=== PATIENT | female | born 1975 | race Caucasian/White ===

== ENCOUNTER 2020-12-10 08:08 | Outpatient (REF) | payer OTHER, SELFPAY ==
[2020-12-10 11:18] LABS: MANUAL DIFF FLAG NO
[2020-12-10 11:28] LABS: Basophils Percent Auto 0.3 % (0-2); Eosinophils Absolute Auto 0.2 X10*3/uL (0.0-0.4); Eosinophils Percent Auto 3.1 % (0-4); Hematocrit 41.4 % (37-47); Hemoglobin 13.3 g/dl (12.0-16.0); Imm Gran Abs Auto 0.03 X10*3/uL (0.00-0.03); Imm Gran Pct Auto 0.4 % (0.0-0.4); Lymphocytes Absolute Auto 2.3 X10*3/uL (1.2-4.9); Lymphocytes Percent Auto 30.7 % (20-40); Mean Corpuscular HGB Conc 32.1 g/dl (31.0-35.0); Mean Corpuscular Hemoglobin 28.9 pg (27.0-33.0); Mean Corpuscular Volume 89.8 fL (80-98); Mean Platelet Volume 10.3 fL (9.4-12.3); Monocytes Absolute Auto 0.5 X10*3/uL (0.1-1.2); Monocytes Percent Auto 6.2 % (2-11); Neutrophils Absolute Auto 4.5 X10*3/uL (2.0-8.3); Neutrophils Percent Auto 59.3 % (45-73); Platelet Count 215 X10*3/uL (160-400); Red Blood Count 4.61 X10*6/uL (4.20-5.50); Red Cell Distribution Width 11.9 % (11.0-16.0); White Blood Count 7.5 X10*3/uL (4.8-10.8)
[2020-12-10 12:09] LABS: TSH reflex Free T4 1.57 uIU/mL (0.32-4.0); Vitamin D 25-OH Total 20.1 ng/mL (>30)
[2020-12-10 12:12] LABS: Alanine Aminotransferase 14 U/L (0-31); Anion Gap 15 (12-20); Aspartate Amino Transferase 16 U/L (5-31); Blood Urea Nitrogen 15 mg/dL (9-16); Calcium 9.1 mg/dL (8.4-10.2); Carbon Dioxide 25 mmol/L (22-29); Chloride 106 mmol/L (96-108); Cholesterol 222 mg/dL; Estimated Glomerular Filt Rate > 60; Glucose Fasting 105 mg/dL (60-99); HDL Cholesterol 51 mg/dL; LDL Cholesterol Calculated 143 mg/dl; Potassium 4.1 mmol/L (3.3-5.1); Sodium 142 mmol/L (135-145); Triglycerides 144 mg/dL
== END 2020-12-10 08:09 | disposition home or self-care (01) ==
LOC: HO.HMGCLDS 08:08
PROVIDERS: PCP Internal Medicine; Visit Provider Internal Medicine
DX: Z00.01 Encounter for general adult medical examination with abnormal findings (principal); E89.40 Asymptomatic postprocedural ovarian failure; R42 Dizziness and giddiness; C53.9 Malignant neoplasm of cervix uteri, unspecified; I10 Essential (primary) hypertension
CPT/HCPCS: 36415; 80048; 80061; 82306; 84443; 84450; 84460; 85025

== ENCOUNTER 2021-12-23 09:17 | Outpatient (REF) | payer OTHER, SELFPAY ==
[2021-12-23 11:20] LABS: MANUAL DIFF FLAG NO
[2021-12-23 11:34] LABS: Basophils Percent Auto 0.2 % (0-2); Eosinophils Absolute Auto 0.3 X10*3/uL (0.0-0.4); Hematocrit 39.3 % (37.0-47.0); Hemoglobin 13.3 g/dl (12.0-16.0); Imm Gran Abs Auto 0.03 X10*3/uL (0.00-0.03); Imm Gran Pct Auto 0.4 % (0.0-0.4); Lymphocytes Absolute Auto 2.2 X10*3/uL (1.2-4.9); Lymphocytes Percent Auto 26.7 % (20-40); Mean Corpuscular HGB Conc 33.8 g/dl (31.0-35.0); Mean Corpuscular Volume 88.5 fL (80.0-98.0); Monocytes Absolute Auto 0.5 X10*3/uL (0.1-1.2); Monocytes Percent Auto 5.8 % (2-11); Neutrophils Absolute Auto 5.3 x10*3/uL (2.0-8.3); Neutrophils Percent Auto 63.9 % (45-73); Platelet Count 193 X10*3/uL (160-400); Red Blood Count 4.44 X10*6/uL (4.20-5.50); Red Cell Distribution Width 12.7 % (11.0-16.0); White Blood Count 8.3 X10*3/uL (4.8-10.8)
[2021-12-23 12:00] LABS: Alanine Aminotransferase 12 U/L (0-31); Anion Gap 14 (12-20); Aspartate Amino Transferase 15 U/L (5-31); Blood Urea Nitrogen 16 mg/dL (9-16); Calcium 9.1 mg/dL (8.4-10.2); Carbon Dioxide 23 mmol/L (22-29); Chloride 105 mmol/L (96-108); Cholesterol 213 mg/dL; Estimated Glomerular Filt Rate > 60; Glucose Fasting 105 mg/dL (60-99); HDL Cholesterol 53 mg/dL; LDL Cholesterol Calculated 131 mg/dl; Potassium 4.7 mmol/L (3.3-5.1); Sodium 137 mmol/L (135-145); Triglycerides 145 mg/dL
[2021-12-23 12:06] LABS: TSH reflex Free T4 1.34 uIU/mL (0.32-4.0); Vitamin D 25-OH Total 34.8 ng/mL (>30)
== END 2021-12-23 09:18 | disposition home or self-care (01) ==
LOC: HO.HMGCLDS 09:17
PROVIDERS: Visit Provider Internal Medicine
DX: Z00.01 Encounter for general adult medical examination with abnormal findings (principal); K21.9 Gastro-esophageal reflux disease without esophagitis; E89.40 Asymptomatic postprocedural ovarian failure; E55.9 Vitamin D deficiency, unspecified
CPT/HCPCS: 36415; 80048; 80061; 82306; 84443; 84450; 84460; 85025

== ENCOUNTER 2022-02-02 08:16 | Outpatient (REF) | payer OTHER, SELFPAY ==
[2022-02-09 03:35] LABS: HPV mRNA E6/E7 rflx Not Detected (Not Detected)
== END 2022-02-02 08:17 | disposition home or self-care (01) ==
LOC: HO.LAB 08:16
PROVIDERS: Visit Provider Obstetrics & Gynecology
DX: Z85.41 Personal history of malignant neoplasm of cervix uteri (principal); Z90.710 Acquired absence of both cervix and uterus
CPT/HCPCS: 87624; 88142

== ENCOUNTER 2022-06-01 12:48 | Day surgery (SDC) | payer OTHER, SELFPAY ==
--- NOTE | 2022-05-31 13:23 | HO.ANESPROP2 ---
Documented by User: Judith Walsh NP 05/31/22 13:23 HPI - Anesthesia Eval Consult details Narrative: 46yo F for Colonoscopy PMFSH Active Problems Active Problems: All Active Problems (Updated 02/17/22 @ 12:40 by RAJ Morase) Family history of colon cancer (Acute) Well woman exam (Acute) Generalized anxiety disorder (Acute) Hx of hysterectomy (Acute) Hx of cervical cancer (Acute) Chronic GERD (Acute) Vitamin D deficiency (Acute) Chronic pelvic pain in female (Acute) Mixed stress and urge urinary incontinence (Acute) Intermittent lightheadedness (Acute) Surgical menopause (Acute) Past Medical History Medical History Chronic GERD Chronic pelvic pain in female CLEMENTINE III (cervical intraepithelial neoplasia grade III) with severe dysplasia Generalized anxiety disorder Hx LEEP (loop electrosurgical excision procedure), cervix, Hx of cervical cancer Intermittent lightheadedness Mixed stress and urge urinary incontinence Surgical menopause Vitamin D deficiency Family History Family History Father Hx of cancer of lung Mother History of mental problems Hx of bipolar disorder Mental health disorder Maternal Grandmother History of CVA (cerebrovascular accident) Hx of coronary artery disease Son Substance use disorder Daughter Mental health disorder Surgical History Surgical History History of suburethral sling procedure History of total vaginal hysterectomy (TVH) Hx of tubal ligation Social History Social History Housing: House Alcohol intake: current Patient Tobacco Use Status: Never used Tobacco e-Cigarette/Vaping Use: Never Used Use of substances other than those prescribed or required for medical reasons: No Are you DNR?: No Advance Directives: No Advance Directives Information Provided: Yes service: No Current occupational status: employed Cognitive needs: No Hearing needs: No Vision needs: No Meds Allergies Allergy/AdvReac Type Severity Reaction Status Date / Time morphine AdvReac Unknown Itching Verified 06/01/22 13:29 prednisone AdvReac Unknown leg Uncoded 02/02/22 07:59 paralysis, and unable to walk Exam Exam Date and Time: May 31, 2022 1323 Pertinent Lab Results Pertinent Lab Results: Laboratory Tests 12/23/21 12/23/21 09:26 09:26 WBC 8.3 Hgb 13.3 Hct 39.3 Plt Count 193 Sodium 137 Potassium 4.7 Chloride 105 Carbon Dioxide 23 BUN 16 Creatinine 0.91 Assessment and Plan Assessment Anesthesia Assessment: Chart Reviewed Documented by User: Abundio Lopez MD 06/01/22 14:23 PMFSH Past Medical History Medical History Chronic GERD Chronic pelvic pain in female CLEMENTINE III (cervical intraepithelial neoplasia grade III) with severe dysplasia Generalized anxiety disorder Hx LEEP (loop electrosurgical excision procedure), cervix, Hx of cervical cancer Intermittent lightheadedness Mixed stress and urge urinary incontinence Surgical menopause Vitamin D deficiency Family History Family History Father Hx of cancer of lung Mother History of mental problems Hx of bipolar disorder Mental health disorder Maternal Grandmother History of CVA (cerebrovascular accident) Hx of coronary artery disease Son Substance use disorder Daughter Mental health disorder Family history of problems with anesthesia: No Surgical History Surgical History History of suburethral sling procedure History of total vaginal hysterectomy (TVH) Hx of tubal ligation History of Problems with Anesthesia: No Social History Social History Housing: House Alcohol intake: current Patient Tobacco Use Status: Never used Tobacco e-Cigarette/Vaping Use: Never Used Use of substances other than those prescribed or required for medical reasons: No Are you DNR?: No Advance Directives: No Advance Directives Information Provided: Yes service: No Current occupational status: employed Cognitive needs: No Hearing needs: No Vision needs: No Meds Allergies Allergy/AdvReac Type Severity Reaction Status Date / Time morphine AdvReac Unknown Itching Verified 06/01/22 13:29 prednisone AdvReac Unknown leg Uncoded 02/02/22 07:59 paralysis, and unable to walk Exam Airway Mallampati Class: III TM Dist: >3cm Neck ROM: Full Loose/Missing/Broken Teeth: No Heart: rrr Lungs: clear Assessment and Plan Final Anesthetic Review Family History of Problems with Anesthesia: No History of Problems with Anesthesia: No NPO: Yes ASA Class: II Final Preanesthetic Review: No Changes in Pt Med Stat, Meds/Allgs Chart Reviewed, Consent Obtained/Reviewed and Anes Risks/Benef Reviewed Patient Risk: Intermediate Procedure Risk: Low Anesthetic Plan Anesthetic Plan: MAC: Disposition: Standard PACU
[2022-06-01 12:57] VITALS: BMI 28.1
[2022-06-01 13:12] VITALS: BP 138/84; PULSE 79; RESP 16; TEMP 36.9; O2SAT 97
--- NOTE | 2022-06-01 13:13 | MHC.SHP ---
Pre-Procedural Eval Section A Date of Service: 06/01/22 Section B Chief Complaint: screening,fm hx Details of Present Illness: grandfather with CRC aged 70 Relevant Family History (Specify if Yes): Yes Relevant Social History: None Present Medications: see Short Stay Collaborative assessment Medical History: Significant History (History of cervical cancer Generalized anxiety disorder GERD) History of Previous Operations: Relevant previous surgery/procedure and date(s) (Vaginal hysterectomy Tubal ligation Suburethral sling procedure with revision Leap procedure *) Allergies: Allergies Allergy/AdvReac Type Severity Reaction Status Date / Time prednisone AdvReac Unknown leg Uncoded 02/02/22 07:59 paralysis, and unable to walk Review of Systems Sugical H&P ROS: Negative: Constitution, Cardiovascular, Respiratory, Neurological, Psychiatric, Hem-Onc, Allergic/Immunologic, Gastrointestinal, Genitourinary, Musculoskeletal, Integumentary, Endocrine and Eyes/Ears/Nose/Throat Exam Surgical H&P Exam: Normal: HEENT, Normal: Heart, Normal: Lungs, Normal: Extremities, Normal: Abdomen, Normal: Skin and Normal: Neurological Plan Diagnosis/Plan: Unchanged I have reviewed the history and physical and performed a pertinent physical examination on my patient. No changes have occurred unless specified.
[2022-06-01] MEDS: Lactated Ringers 1,000 ML 100 ML IVCONT (13:23)
--- NOTE | 2022-06-01 14:06 | W.PM.OPN ---
Operative Note Operative Note Date of Service: 06/01/22 Narrative: Operative Information Procedure Description: Colonoscopy Indication: screening Anesthesia: MAC COLONOSCOPY Instrument: Olympus variable stiffness pediatric scope 190L Colonoscopy Monitoring: Vital signs and clinical assessment, continuous EKG monitoring, Pulse oximetry, Carbon Dioxide monitoring and blood pressure monitoring were done throughout the procedure. Colon withdrawal time was 9 minutes. Procedure: The patient was placed in the left lateral decubitis position and pre-procedure medications were administered. After a digital rectal examination of the ano-rectum, the video colonoscope was inserted into the rectum and advanced through the colon to the cecum/TI. The colonoscope was slowly withdrawn in a retrograde panoramic fashion and the colon mucosa was carefully examined including a retroflexed view of the rectum. Findings and interventions are described below. Procedure Difficulty: easy Findings: Terminal Ileum-normal Cecum:normal right sided retroflexion-normal Ascending Colon: normal Transverse Colon - x 2 sessile polyps removed with cold snare, one measured 5-6 mm and the other was 10-11 mm. Descending Colon: x 1 sessile polyp 7-9 mm removed with cold snare Sigmoid Colon: mild diverticulosis Rectum: Retroflexion with small internal hemorrhoids, grade I Anorectum - normal Colon preparation: Hollywood Bowel Preparation Scale Right colon; 2 Transverse colon: 3 Left colon; 3 (0 = Unprepared colon segment with mucosa not seen due to solid stool that cannot be cleared. 1 = Portion of mucosa of the colon segment seen, but other areas of the colon segment not well seen due to staining, residual stool and/or opaque liquid. 2 = Minor amount of residual staining, small fragments of stool and/or opaque liquid, but mucosa of colon segment seen well. 3 = Entire mucosa of colon segment seen well with no residual staining, small fragments of stool or opaque liquid) Impression and Post Procedure Diagnosis: polyps internal hemorrhoids diverticular disease Plan: High fiber diet leaflet Avoid straining at stool, epsom salts and sitz bath, anusol supps or cream Repeat Colonoscopy in 3 years due to adenomatous appearing polyps or earlier if clinically indicated Above findings were reviewed with the patient and relevant handouts were provided if indicated.
[2022-06-01 14:56] VITALS: BP 116/78; PULSE 80; RESP 18; TEMP 37.3; O2SAT 98
[2022-06-01 15:11] VITALS: BP 118/78; PULSE 68; RESP 16; TEMP 36.4; O2SAT 99
== END 2022-06-01 15:37 | disposition home or self-care (01) ==
PROVIDERS: PCP Internal Medicine; Visit Provider Internal Medicine Gastroenterology
PROC: 0DJD8ZZ Inspection of Lower Intestinal Tract, Via Natural or Artificial Opening Endoscopic (ICD-10-PCS; CPT 45378; principal; 2022-06-01 14:30)
DX: Z12.11 Encounter for screening for malignant neoplasm of colon (principal); Z80.0 Family history of malignant neoplasm of digestive organs; D12.3 Benign neoplasm of transverse colon; K63.5 Polyp of colon; K57.30 Diverticulosis of large intestine without perforation or abscess without bleeding; K64.0 First degree hemorrhoids; K21.9 Gastro-esophageal reflux disease without esophagitis; F41.1 Generalized anxiety disorder; Z88.8 Allergy status to other drugs, medicaments and biological substances; Z98.51 Tubal ligation status; Z98.890 Other specified postprocedural states; Z85.41 Personal history of malignant neoplasm of cervix uteri
CPT/HCPCS: 45385; 88305

== ENCOUNTER 2022-10-16 12:56 | Outpatient (REF) | payer OTHER, SELFPAY ==
--- NOTE | ~2022-10-16 | MM_ITS ---
EXAMINATION: MM SCREENING DIGITAL BREAST TOMOSYNTHESIS, BILATERAL CLINICAL INFORMATION: Screening. Asymptomatic. The lifetime risk of breast cancer based on the Tyrer-Cuzick Model is 6.7%. COMPARISON: Mammography: September 16, 2021 and studies dating back to November 26, 2018 TECHNIQUE: Digital breast tomosynthesis is performed in both the craniocaudal and mediolateral oblique views along with computer-aided detection (CAD). Synthesized 2D images are generated from the tomosynthesis. FINDINGS: The breasts are heterogeneously dense, which may obscure small masses (ACR BI-RADS breast composition Category c). There are no significant masses, abnormal calcifications, or other abnormalities. MM/MM tomosynthesis screening BI IMPRESSION: No significant changes from prior exam. ASSESSMENT: BI-RADS 1: Negative RECOMMENDATION: Routine annual mammography screening. This patient's information was entered into a reminder system with a target due date for their next mammogram.
== END 2022-10-16 12:57 | disposition home or self-care (01) ==
LOC: HO.MAMMO 12:56
PROVIDERS: PCP Internal Medicine; Visit Provider Internal Medicine
DX: Z12.31 Encounter for screening mammogram for malignant neoplasm of breast (principal)
CPT/HCPCS: 77063; 77067

== ENCOUNTER → 2023-02-07 08:01 | Outpatient (BNVA) | payer OTHER, SELFPAY | PROVIDERS: PCP Internal Medicine; Visit Provider Obstetrics & Gynecology ==

== ENCOUNTER 2023-03-08 10:01 | Emergency (ER) | payer OTHER, SELFPAY ==
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
[2023-03-08 10:10] VITALS: BP 130/111; BP 210/90; PULSE 80; PULSE 82; RESP 18; TEMP 36.7; O2SAT 100; O2SAT 99; BMI 31.9
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
[2023-03-08] MEDS: Cyclobenzaprine HCl 10 MG TABLET PO (10:56)
[2023-03-08] MEDS: Acetaminophen 325 MG TABLET 650 MG PO (10:57)
[2023-03-08 15:37] VITALS: BP 139/88; PULSE 66; RESP 18; TEMP 36.7; O2SAT 98
[2023-03-08] MEDS: Ketorolac Tromethamine 30 MG/ML VIAL IM (15:54)
== END 2023-03-08 16:51 | disposition home or self-care (01) ==
PROVIDERS: Emergency Provider Emergency Medicine Emergency Medical Services; PCP Internal Medicine
DX: S63.502A Unspecified sprain of left wrist, initial encounter (principal); M62.838 Other muscle spasm; M54.2 Cervicalgia; M79.602 Pain in left arm; R51.9 Headache, unspecified; M25.512 Pain in left shoulder; M25.511 Pain in right shoulder; V43.52XA Car driver injured in collision with other type car in traffic accident, initial encounter; Y93.9 Activity, unspecified; Y92.410 Unspecified street and highway as the place of occurrence of the external cause; Y99.9 Unspecified external cause status
CPT/HCPCS: 70450; 72125; 73030; 73110; 96372; 99284; J1885

== ENCOUNTER 2023-05-25 07:51 | Outpatient (AMB) | payer OTHER, SELFPAY ==
--- NOTE | 2023-05-25 07:54 | MHC.PC.OV ---
Vital Signs 05/25/23 07:55 Height 5 ft 7 in Weight 194 lb BMI 30.4 BP 118/78 Blood Pressure Location Lt brachial Position Sitting Pulse 73 Pulse Source Pulse Oximeter Pulse Oximetry (%) 99 Oxygen Delivery Method Room Air Intake Visit Reasons: PHY Intake Note: Pt is here today for PE. Allergies morphine Adverse Reaction (Unknown, Verified 05/25/23 08:23) Itching prednisone Adverse Reaction (Unknown, Uncoded 05/25/23 08:23) leg paralysis, and unable to walk Medication List - Last Reconciled 05/25/23 by Celsa Henderson MD acetaminophen (Tylenol Extra Strength) 500 mg PO Q6H PRN amitriptyline 10 mg PO BEDTIME lidocaine 5% (Lidoderm) 1 patch topical DAILY PRN MDD remove after 12 hours naproxen 500 mg PO BID PRN 10 days Tobacco use date assessed: 05/25/23 Dental Screening Dental Screen Date: 05/25/23 Did you have a dental visit in the last 12 months?: Yes Did you have a dental problem in the last 6 months where you did not have access to dental care?: No Was dental information given to patient?: Patient has dentist HPI [facility] HPI Details 47-year-old lady here today for physical exam. She is currently up-to-date with her cervical cancer screening, goes to Dr. Garcia for her routine Pap and pelvic exam. She goes to urogynecology specialist in [place] for treatment of her mixed stress and urge incontinence due to pelvic organ prolapse. She has had a screening colonoscopy done already which showed presence of a tubular adenoma, due for recheck again 3year. Patient complaining early waking up during the night, this has been ongoing now for the last several months. Has tried several to counter sleep aids which has not helped. She also has been having intermittent episodes of pain and stiffness in her left wrist joint, . radial aspect, no history of any trauma or strenuous exertion. Patient however is left-handed She also is requesting a referral to senior applications analyst, as she has thick discolored toenail in big toe which is falling out, which has spread now to her other toes on left foot. Has been using and topical antifungal treatment which she bought [id number], which has not helped [facility] Medical History (Updated 05/25/23 @ 08:41 by Celsa Henderson MD) Frequent nocturnal awakening Stress incontinence due to pelvic organ prolapse CLEMENTINE III (cervical intraepithelial neoplasia grade III) with severe dysplasia Generalized anxiety disorder Hx of cervical cancer Chronic GERD Vitamin D deficiency Chronic pelvic pain in female Mixed stress and urge urinary incontinence Intermittent lightheadedness Surgical menopause Hx LEEP (loop electrosurgical excision procedure), cervix, Surgical History H/O colonoscopy History of total vaginal hysterectomy (TVH) History of suburethral sling procedure Hx of tubal ligation Family History Father Hx of cancer of lung Mother History of mental problems Hx of bipolar disorder Mental health disorder Maternal Grandmother History of CVA (cerebrovascular accident) Hx of coronary artery disease Son Substance use disorder Daughter Mental health disorder Social History Household Members: Spouse Housing: House Alcohol intake: current Alcohol intake frequency: a few times a month Patient Tobacco Use Status: Never used Tobacco e-Cigarette/Vaping Use: Never Used service: No Current occupational status: employed Current occupation: [employer] Sexual orientation: Straight/Heterosexual Gender identity: Female Cognitive needs: No Hearing needs: No Vision needs: No Questionnaire PHQ-9 Over the last 2 weeks, how often have you been bothered by any of the following problems? 1. Little interest or pleasure in doing things: not at all 2. Feeling down, depressed, or hopeless: not at all 3. Trouble falling or staying asleep, or sleeping too much: more than half the days 4. Feeling tired or having little energy: more than half the days 5. Poor appetite or overeating: not at all 6. Feeling bad about yourself - or that you are a failure or have let yourself or your family down: not at all 7. Trouble concentrating on things, such as reading the newspaper or watching television: not at all 8. Moving or speaking so slowly that other people could have noticed. Or the opposite - being so fidgety or restless that you have been moving around a lot more than usual: not at all 9. Thoughts that you would be better off or of hurting yourself in some way: not at all Total score: 4 Depression Screening Interpretation: Negative [id number] - PHQ-9 Billing: Yes Source: Developed by Drs. Prakash Ruelas, Nereyda Serra, John Fischer and colleagues, with an educational terrance from [employer]. Thrive Questionnaire Date Thrive assessed: 05/25/23 I am a: Patient What is your living situation today?: I have a steady place to live Within the past 12 months, did the food you bought not last and you didn't have the money to get more?: Never true Within the past 12 months, did you worry whether your food would run out before you got money to buy more?: Never true Do you have trouble paying for medicines?: No Do you have trouble getting transportation to medical appointments?: No Do you have trouble paying your heating and electricity bill?: No Do you have trouble taking care of your child, family member or friend?: No Do you have trouble with day-to-day activities such as bathing, preparing meals, shopping, managing finances, etc.?: No Are you currently unemployed and looking for a job?: No Are you interested in more education?: No Please select the resources that you would like help with: None AUDIT C Alcohol Use Questionnaire (AUDIT-C) 1. How often do you have a drink containing alcohol?: Monthly or less 2. How many drinks containing alcohol do you have on a typical day when you are drinking?: 1 or 2 3. How often do you have six or more drinks on one occasion?: Never Total Score: 1 APRIL-7 AMB Questionnaire APRIL-7 Date APRIL - 7 assessed: 05/25/23 Feeling nervous, anxious, or on edge: 0 = Not at all Not being able to stop or control worryin = Not at all Worrying too much about different things: 0 = Not at all Trouble relaxin = Not at all Being so restless that it is hard to sit still: 0 = Not at all Becoming easily annoyed or irritable: 0 = Not at all Feeling afraid as if something awful might happen: 0 = Not at all Total APRIL-7 score (0-4 normal; 5-9 mild; 10-14 moderate; 15-21 severe): 0 Source: Developed by Nereyda Leary.W. Ponce, John Fischer and colleagues, with an educational terrance from [employer]. APRIL-7 Assessment Billing APRIL-7 Assessment Tool: APRIL-7 Assessment 54292 Review of Systems Const Denies body aches, Reports difficulty sleeping, Denies fever(s), Denies headache(s) and Denies weakness Eyes Reports no additional complaints and Denies change in vision ENT Denies dysphagia, Denies dizziness, Denies headache(s), Denies nasal congestion and Denies sore throat Card Denies chest pain, Denies lightheadedness and Denies dyspnea Resp Denies chest congestion, Denies cough and Denies dyspnea GI Denies abdominal pain, Denies change in bowel habits, Denies dysphagia and Denies heartburn Denies urinary frequency, Denies dyspareunia, Denies dysuria, Reports urinary incontinence and Reports urinary urgency Musc Reports no additional complaints Skin/Breast Reports as per HPI, Denies breast pain and Denies breast mass Neuro Denies dizziness, Denies headache(s), Denies seizure-like activity and Denies weakness Psych Reports no additional complaints Endo Reports no additional complaints Dom/Lymph Reports no additional complaints Aller/Immun Reports no additional complaints Physical exam (Primary Care) Vital Signs: Last Vital Signs Pulse 73 05/25/23 07:55 BP 118/78 05/25/23 07:55 Pulse Ox 99 05/25/23 07:55 Oxygen Delivery Method Room Air 05/25/23 07:55 BMI result Body Mass Index 30.4 Tobacco/Smoking Status: Tobacco use Status Tobacco use date assessed 05/25/23 05/25/23 07:59 Patient Tobacco Use Status Never used Tobacco 05/25/23 07:59 e-Cigarette/Vaping Use Never Used 05/25/23 07:59 PHQ-9: PHQ-9 Score PHQ-9: Total score 4 05/25/23 07:59 Depression Screening Interpretation: Negative Thrive Assessment: Date of Thrive Assessment Date Thrive assessed 05/25/23 05/25/23 07:59 Const Other: Alert oriented x3, no acute distress noted ambulatory with normal gait HENMT Mouth: moist mucous membranes Eyes General: appearance normal, both eyes and all related structures Neck Other: Supple no lymphadenopathy, thyroid gland nonpalpable Neck: Yes full ROM and Yes no lymphadenopathy Thyroid: Thyroid normal Chest Breast/axilla palpation: normal palpation of the breasts Resp Auscultation: clear to auscultation bilaterally Cardio Other: S1-S2 present regular rate and rhythm no murmurs GI Other: Normal bowel sounds, soft, slight tenderness on palpation over bilateral lower quadrants to right more than the left, no mass palpated Palpation (GI): Soft to palpation, nontender and no guarding Auscultation: normal bowel sounds Back/Spine/Pelvis Back: No back tenderness Skin Other: Friable dystrophic toenail on left big toe and white thickened toenail on left 3rd and 4th toes Neuro General: gait normal, tone normal, moves all extremities, Normal light touch and pain sensation, no focal motor deficits and CN's II-XI intact bilaterally Cognition (Neuro): normal cognition Gait exam (Neuro): Normal gait present Extrem Other: Negative Tinel's and Phalen sign, slight tenderness on palpation over radial aspect of left wrist joint, equivocal Daren's test General: Yes full ROM, Yes no clubbing, cyanosis or edema, Yes no pedal edema and Yes normal gait Psych Appearance: grossly normal and well kempt Mental Status: mental status grossly normal Speech and movement: Normal speech and movement present Affect: normal affect Thought process: Normal thought process present Assessment and Plan Assessment & Plan (1) Annual visit for general adult medical examination with abnormal findings: Code(s): Z00.01 - Encounter for general adult medical examination with abnormal findings Plan: Will check appropriate labs. Recommended dental visit every 6 months and regular eye exams, at least every 2 years. Take adequate calcium in diet and vitamin-D 3 at 2000 IU per cap once a day, in addition to weight-bearing exercises to help maintain good muscle tone and weight control. Continue to do self-breast exam, and get yearly mammogram, currently up-to-date. Goes to Dr. Garcia for her routine Pap and pelvic exam, which is currently up-to-date. Up-to-date with her screening colonoscopy done in 2021 repeat in 3-5 years. Declines flu shot, advised to get her COVID booster, and her Td booster for this year (2) Vitamin D deficiency: Code(s): E55.9 - Vitamin D deficiency, unspecified (3) Mixed stress and urge urinary incontinence: Comment: seen by Dr Emmanuel, and now sees Dr cheryle Mckeon Code(s): N39.46 - Mixed incontinence Plan: Currently sees a a Urogynecologist in [place] (4) Stress incontinence due to pelvic organ prolapse: Code(s): N39.3 - Stress incontinence (female) (male) Plan: Currently sees Urogynecologist in [place] (5) Frequent nocturnal awakening: Code(s): G47.00 - Insomnia, unspecified Plan: Referred to sleep medicine for further evaluation (6) Acquired deformity of toenail: Code(s): L60.8 - Other nail disorders Plan: Referral to Dr. Romano, podiatry for further evaluation for possible onychomycosis (7) Left wrist tendinitis: Code(s): M77.8 - Other enthesopathies, not elsewhere classified Plan: Likely de Quervain, trial of Salonpas patch to apply to radial aspect of left wrist joint every 8 hours as needed or may try massaging diclofenac gel 1% to affected area 3 to 4 times a day as needed. If no improvement of symptoms, will refer to orthopedics. Orders: Orders Alanine Aminotransferase 05/25/23 D12.6 - Benign neoplasm of colon, unspecified, E55.9 - Vitamin D deficiency, unspecified, E89.40 - Asymptomatic postprocedural ovarian failure, N39.3 - Stress incontinence (female) (male), N39.46 - Mixed incontinence, Z00.01 - Encounter for general adult medical examination with abnormal findings Aspartate Amino Transferase 05/25/23 D12.6 - Benign neoplasm of colon, unspecified, E55.9 - Vitamin D deficiency, unspecified, E89.40 - Asymptomatic postprocedural ovarian failure, N39.3 - Stress incontinence (female) (male), N39.46 - Mixed incontinence, Z00.01 - Encounter for general adult medical examination with abnormal findings Basic Metabolic Panel Fasting 05/25/23 D12.6 - Benign neoplasm of colon, unspecified, E55.9 - Vitamin D deficiency, unspecified, E89.40 - Asymptomatic postprocedural ovarian failure, N39.3 - Stress incontinence (female) (male), N39.46 - Mixed incontinence, Z00.01 - Encounter for general adult medical examination with abnormal findings Hemoglobin A1c 05/25/23 D12.6 - Benign neoplasm of colon, unspecified, E55.9 - Vitamin D deficiency, unspecified, E89.40 - Asymptomatic postprocedural ovarian failure, N39.3 - Stress incontinence (female) (male), N39.46 - Mixed incontinence, Z00.01 - Encounter for general adult medical examination with abnormal findings Lipid Panel 05/25/23 D12.6 - Benign neoplasm of colon, unspecified, E55.9 - Vitamin D deficiency, unspecified, E89.40 - Asymptomatic postprocedural ovarian failure, N39.3 - Stress incontinence (female) (male), N39.46 - Mixed incontinence, Z00.01 - Encounter for general adult medical examination with abnormal findings Vitamin D 25-OH Total 05/25/23 D12.6 - Benign neoplasm of colon, unspecified, E55.9 - Vitamin D deficiency, unspecified, E89.40 - Asymptomatic postprocedural ovarian failure, N39.3 - Stress incontinence (female) (male), N39.46 - Mixed incontinence, Z00.01 - Encounter for general adult medical examination with abnormal findings Referrals Sleep Medicine Referral G47.00 - Insomnia, unspecified Podiatry Referral L60.8 - Other nail disorders Medications: New diclofenac sodium 1% (Arthritis Pain (diclofenac)) 2 grams topical QID PRN 100 grams 0RF left wrist pain Coding Level of Care Code Est Pt Prev Care 40-64y(40671) Diagnoses Annual visit for general adult medical examination with abnormal findings Z00.01 Vitamin D deficiency E55.9 Mixed stress and urge urinary incontinence N39.46 Stress incontinence due to pelvic organ prolapse N39.3 Frequent nocturnal awakening G47.00 Acquired deformity of toenail L60.8 Left wrist tendinitis M77.8 Additional Codes APRIL-7 Assessment Billing - APRIL-7 Assessment Tool: APRIL-7 Assessment 25772 ([id number])
[2023-05-25 07:55] VITALS: BP 118/78; PULSE 73; O2SAT 99; BMI 30.4
== END 2023-05-25 11:43 | disposition home or self-care (01) ==
PROVIDERS: Visit Provider Internal Medicine
DX: Z00.01 Encounter for general adult medical examination with abnormal findings (principal); E55.9 Vitamin D deficiency, unspecified; N39.3 Stress incontinence (female) (male); G47.00 Insomnia, unspecified; L60.8 Other nail disorders; M77.8 Other enthesopathies, not elsewhere classified
CPT/HCPCS: 99396

== ENCOUNTER 2023-05-28 06:30 | Outpatient (REF) | payer OTHER, SELFPAY ==
[2023-05-28 11:54] LABS: Estimated Average Glucose 97 mg/dL
[2023-05-28 12:06] LABS: Alanine Aminotransferase 10 U/L (0-31); Anion Gap 13 (12-20); Aspartate Amino Transferase 15 U/L (5-31); Blood Urea Nitrogen 15 mg/dL (9-16); Calcium 8.6 mg/dL (8.4-10.2); Carbon Dioxide 24 mmol/L (22-29); Chloride 106 mmol/L (96-108); Cholesterol 241 mg/dL (<200); Estimated Glomerular Filt Rate > 60; Glucose Fasting 94 mg/dL (60-99); HDL Cholesterol 58 mg/dL (>40); LDL Cholesterol Calculated 141 mg/dL (<100); Sodium 139 mmol/L (135-145); Triglycerides 212 mg/dL (<150)
[2023-05-28 12:28] LABS: Vitamin D 25-OH Total 37.4 ng/mL (>30)
== END 2023-05-28 06:31 | disposition home or self-care (01) ==
LOC: HO.HMGCLDS 06:30
PROVIDERS: PCP Internal Medicine; Visit Provider Internal Medicine
DX: Z00.01 Encounter for general adult medical examination with abnormal findings (principal); D12.6 Benign neoplasm of colon, unspecified; E55.9 Vitamin D deficiency, unspecified; N39.46 Mixed incontinence; E89.40 Asymptomatic postprocedural ovarian failure
CPT/HCPCS: 36415; 80048; 80061; 82306; 83036; 84450; 84460

== ENCOUNTER 2023-07-27 10:49 | Outpatient (REF) | payer OTHER, SELFPAY ==
[2023-07-27 12:01] LABS: MANUAL DIFF FLAG NO
[2023-07-27 12:21] LABS: Basophils Percent Auto 0.3 % (0-2); Eosinophils Absolute Auto 0.3 X10*3/uL (0.0-0.4); Eosinophils Percent Auto 2.7 % (0-4); Hematocrit 40.2 % (37.0-47.0); Hemoglobin 13.3 g/dl (12.0-16.0); Imm Gran Abs Auto 0.05 X10*3/uL (0.00-0.03); Imm Gran Pct Auto 0.5 % (0.0-0.4); Lymphocytes Absolute Auto 2.4 X10*3/uL (1.2-4.9); Lymphocytes Percent Auto 25.3 % (20-40); Mean Corpuscular HGB Conc 33.1 g/dl (31.0-35.0); Mean Corpuscular Hemoglobin 29.3 pg (27.0-33.0); Mean Corpuscular Volume 88.5 fL (80.0-98.0); Mean Platelet Volume 9.6 fL (9.4-12.3); Monocytes Absolute Auto 0.4 X10*3/uL (0.1-1.2); Monocytes Percent Auto 4.1 % (2-11); Neutrophils Absolute Auto 6.3 x10*3/uL (2.0-8.3); Neutrophils Percent Auto 67.1 % (45-73); Platelet Count 206 X10*3/uL (160-400); Red Blood Count 4.54 X10*6/uL (4.20-5.50); Red Cell Distribution Width 12.8 % (11.0-16.0); White Blood Count 9.3 X10*3/uL (4.8-10.8)
[2023-07-27 12:57] LABS: Alanine Aminotransferase 15 U/L (0-31); Albumin Level 4.3 g/dL (3.5-5.0); Alkaline Phosphatase 68 U/L (39-117); Anion Gap 12 (12-20); Aspartate Amino Transferase 14 U/L (5-31); Bilirubin Total 0.5 mg/dL (0.0-1.0); Blood Urea Nitrogen 14 mg/dL (9-16); C Reactive Protein 0.98 mg/dL (< or = 0.50); Carbon Dioxide 26 mmol/L (22-29); Chloride 106 mmol/L (96-108); Estimated Glomerular Filt Rate > 60; Glucose Random 99 mg/dL (60-115); Sodium 140 mmol/L (135-145); Total Protein 7.3 g/dL (6.5-8.0)
[2023-07-27 13:01] LABS: Erythrocyte Sedimentation Rate 6 MM/HR (0-20)
[2023-07-30 14:34] LABS: Cyclic Citrullinated Peptide <16 UNITS
[2023-07-30 16:58] LABS: IgA 201 mg/dL (47-310); IgG 951 mg/dL (600-1640); IgM 46 mg/dL (50-300)
[2023-07-31 12:34] LABS: Aldolase 3.2 U/L (<=8.1)
[2023-07-31 13:34] LABS: SM/Ribonucleoprotein Ab <1.0 NEG AI (<1.0 NEG); Smith Protein <1.0 NEG AI (<1.0 NEG)
[2023-07-31 14:19] LABS: Anti Nuclear Antibody Screen NEGATIVE (NEGATIVE)
== END 2023-07-27 10:50 | disposition home or self-care (01) ==
LOC: HO.LAB 10:49
PROVIDERS: PCP Internal Medicine; Visit Provider Nurse Practitioner Family
DX: M54.16 Radiculopathy, lumbar region (principal); M25.50 Pain in unspecified joint; G89.29 Other chronic pain
CPT/HCPCS: 36415; 80053; 82085; 82550; 82784; 85025; 85652; 86038; 86140; 86200; 86235

== ENCOUNTER 2023-07-27 10:49 | Outpatient (AMB) | payer OTHER, SELFPAY ==
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
[2023-07-27 10:52] VITALS: BP 130/70; PULSE 86; TEMP 36.1; O2SAT 100; BMI 30.7
== END 2023-07-27 11:59 | disposition home or self-care (01) ==
PROVIDERS: PCP Internal Medicine; Visit Provider Nurse Practitioner Family
DX: M25.50 Pain in unspecified joint (principal); M54.16 Radiculopathy, lumbar region; G89.29 Other chronic pain
CPT/HCPCS: 99203

== ENCOUNTER 2023-08-03 11:28 | Outpatient (AMB) | payer OTHER, SELFPAY ==
--- NOTE | 2023-08-03 11:31 | MHC.OFFVIS ---
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 Pt reports difficulty falling asleep and staying sleep. She goes to bed 9-10 pm but can't fall asleep until midnight to 1 am. And she wakes up almost every hour and it is hard to go back to sleep. Pt is tired and exhausted but can't even take a nap. She tried 10 mg of melatonin in the past, but it did not help. She also tried amitriptyline, it helped her to fall asleep at the beginning but having bad dream. Sleep questionnaire: Have you ever been diagnosed with a sleep disorder? Insomnia. Have you ever had a sleep study in the past? No. Have you ever been treated for a sleep disorder? No. Do you take medications for a sleep disorder? No. Do you snore? Yes. Do you wake up gasping at night? No. Do you have episodes of apneas? No. If yes, are they witnessed? No. Do you have episodes of nocturnal chest pain or dyspnea? Palpitation. Do you have difficulty initiating sleep? Yes. Do you have difficulty maintaining sleep? Yes. Do you wake up tired? Yes, all the time. Do you have headaches upon awakening? Yes. Do you wake up with dry mouth or throat? No. Do you have GERD? Yes. Do you have nocturia? No. Do you have nocturnal leg cramps? Yes. Do you have symptoms of restless legs? Yes. Do you act out your dreams? Yes. Sleep hygiene questionnaire: What is your usual sleep routine? Usual bedtime is at 9-10 pm; Usual wake up time is at 5-6 am . Do you take naps? No. Is your sleep environment cool, dark, and quiet? Yes. Do you exercise? No. Do you take caffeine or other stimulants? One cup of coffee in the morning. Do you use electronics in bed? No. What is your work schedule? N/A. Hypersomnolence questionnaire: Do you have daytime tiredness or fatigue? Yes. Do you easily fall asleep when inactive? No Have you ever had episodes of sudden weakness? No. Have you ever had episodes of sudden weakness associated with strong emotions? No. PFSH Medical History Polyarthralgia Frequent nocturnal awakening Stress incontinence due to pelvic organ prolapse CLEMENTINE III (cervical intraepithelial neoplasia grade III) with severe dysplasia Generalized anxiety disorder Hx of cervical cancer Chronic GERD Vitamin D deficiency Chronic pelvic pain in female Mixed stress and urge urinary incontinence Intermittent lightheadedness Surgical menopause Hx LEEP (loop electrosurgical excision procedure), cervix, Surgical History H/O colonoscopy History of total vaginal hysterectomy (TVH) History of suburethral sling procedure Hx of tubal ligation Family History Father Hx of cancer of lung Mother History of mental problems Hx of bipolar disorder Mental health disorder Arthritis Osteoporosis Maternal Grandmother History of CVA (cerebrovascular accident) Hx of coronary artery disease Arthritis Osteoporosis Fibromyalgia Son Substance use disorder Daughter Mental health disorder Social History Household Members: Spouse Housing: House Alcohol intake: current Alcohol intake frequency: a few times a month Patient Tobacco Use Status: Never used Tobacco e-Cigarette/Vaping Use: Never Used service: No Current occupational status: employed Current occupation: [employer] [place] Sexual orientation: Straight/Heterosexual Gender identity: Female Cognitive needs: No Hearing needs: No Vision needs: No Review of Systems Const All systems reviewed & are unremarkable except as noted in HPI and below Physical Exam Vital Signs: Last Vital Signs BP 128/84 08/03/23 11:33 Pulse Ox 100 08/03/23 11:33 Oxygen Delivery Method Room Air 08/03/23 11:33 BMI result Body Mass Index 30.7 Const General: cooperative and tired appearing Nutritional Appearance: obese Orientation/consciousness: patient oriented x3 Neck Neck: Yes full ROM and Yes supple Resp Effort & Inspection: normal respiratory effort and able to speak in complete sentences Neuro General: patient oriented x3, gait normal and moves all extremities Cranial nerves: Yes CN's II-XII intact bilaterally Gait exam (Neuro): Normal gait present Motor exam (neuro): 5/5 motor strength present throughout, Pronator motor function not present and no tremor noted Psych Appearance: grossly normal Mental Status: mental status grossly normal Speech and movement: Normal speech and movement present Affect: normal affect Attitude: cooperative Assessment & Plan Assessment & Plan (1) Snoring: Code(s): R06.83 - Snoring (2) Insomnia: Code(s): G47.00 - Insomnia, unspecified (3) Daytime sleepiness: Code(s): R40.0 - Somnolence Plan Pt is advised to undergo home sleep study to assess for sleep apnea. Will f/u with pt after study to discuss results and appropriate treatment options. Sleep hygiene education provided. Limit caffeine intake and electronic use before bedtime. Wt reduction advised. Advised patient to try Calm Sleep supplement. Pt to call with any worsening concerns or questions. Orders: Orders RT home sleep study 08/03/23 G47.00 - Insomnia, unspecified, R06.83 - Snoring Coding Level of Care Code New Pt Level 3 (72333) Diagnoses Snoring R06.83 Insomnia G47.00 Daytime sleepiness R40.0
[2023-08-03 11:33] VITALS: BP 128/84; O2SAT 100; BMI 30.7
== END 2023-08-03 12:17 | disposition home or self-care (01) ==
PROVIDERS: PCP Internal Medicine; Visit Provider Nurse Practitioner Family
DX: R06.83 Snoring (principal); G47.00 Insomnia, unspecified; R40.0 Somnolence
CPT/HCPCS: 99203

== ENCOUNTER → 2023-08-03 11:28 | Outpatient (BNVA) | payer OTHER, SELFPAY | PROVIDERS: PCP Internal Medicine; Visit Provider Nurse Practitioner Family ==

== ENCOUNTER 2023-08-16 09:38 | Outpatient (AMB) | payer OTHER, SELFPAY ==
[2023-08-16 10:14] VITALS: BP 130/88; PULSE 88; O2SAT 98; BMI 31.0
--- NOTE | 2023-08-16 10:14 | MHC.PC.OV ---
Vital Signs 08/16/23 10:14 Height 5 ft 7 in Weight 198 lb BMI 31.0 BP 130/88 Blood Pressure Location Rt brachial Position Sitting Pulse 88 Pulse Source Pulse Oximeter Pulse Oximetry (%) 98 Oxygen Delivery Method Room Air Intake Visit Reasons: right hip pain/groin Intake Note: Pt is here for right hip pain that started last Sunday she says it hurts to sit and lift her self in the car hurts and she can not bend over to dress her self Allergies morphine Adverse Reaction (Unknown, Verified 09/20/23 05:14) Itching prednisone Adverse Reaction (Unknown, Uncoded 09/20/23 05:14) leg paralysis, and unable to walk Medication List - Last Reconciled 08/16/23 by Celsa Henderson MD amitriptyline 10 mg PO BEDTIME [id number] [id number] mg (Excedrin Extra Strength) 1 tab PO Q4-6H PRN diclofenac sodium 1% (Arthritis Pain (diclofenac)) 2 grams topical QID PRN lidocaine 5% (Lidoderm) 1 patch topical DAILY PRN MDD remove after 12 hours omeprazole 20 mg PO DAILY Tobacco use date assessed: 08/16/23 Dental Screening Dental Screen Date: 08/16/23 Did you have a dental visit in the last 12 months?: No Did you have a dental problem in the last 6 months where you did not have access to dental care?: No Was dental information given to patient?: No HPI right hip pain/groin HPI Details 48-year-old lady here today complaining of right hip pain that started last Sunday, States that it hurts to sit and getting in and out of the car hurts , and has difficulty putting clothes on as she cannot bend over to dress herself due to pain . No history of strenuous exertion or trauma. Denies any accompanying leg weakness, no urinary or fecal incontinence reported, no numbness or tingling in extremities PFSH Medical History Polyarthralgia Frequent nocturnal awakening Stress incontinence due to pelvic organ prolapse CLEMENTINE III (cervical intraepithelial neoplasia grade III) with severe dysplasia Generalized anxiety disorder Hx of cervical cancer Chronic GERD Vitamin D deficiency Chronic pelvic pain in female Mixed stress and urge urinary incontinence Intermittent lightheadedness Surgical menopause Hx LEEP (loop electrosurgical excision procedure), cervix, Surgical History H/O colonoscopy History of total vaginal hysterectomy (TVH) History of suburethral sling procedure Hx of tubal ligation Family History Father Hx of cancer of lung Mother History of mental problems Hx of bipolar disorder Mental health disorder Arthritis Osteoporosis Maternal Grandmother History of CVA (cerebrovascular accident) Hx of coronary artery disease Arthritis Osteoporosis Fibromyalgia Son Substance use disorder Daughter Mental health disorder Social History Household Members: Spouse Housing: House Alcohol intake: current Alcohol intake frequency: a few times a month Patient Tobacco Use Status: Never used Tobacco e-Cigarette/Vaping Use: Never Used service: No Current occupational status: employed Current occupation: [employer] Sexual orientation: Straight/Heterosexual Gender identity: Female Cognitive needs: No Hearing needs: No Vision needs: No Questionnaire Thrive Questionnaire Date Thrive assessed: 05/25/23 APRIL-7 AMB Questionnaire APRIL-7 Date APRIL - 7 assessed: 05/25/23 Source: Developed by Drs. Prakash Ruelas, Nereyda Serra, John Fischer and colleagues, with an educational terrance from [employer]. Review of Systems Const All systems reviewed & are unremarkable except as noted in HPI and below Physical exam (Primary Care) Vital Signs: Last Vital Signs Pulse 88 08/16/23 10:14 BP 130/88 08/16/23 10:14 Pulse Ox 98 08/16/23 10:14 Oxygen Delivery Method Room Air 08/16/23 10:14 BMI result Body Mass Index 31.0 Tobacco/Smoking Status: Tobacco use Status Tobacco use date assessed 08/16/23 08/16/23 10:20 Patient Tobacco Use Status Never used Tobacco 08/16/23 10:20 e-Cigarette/Vaping Use Never Used 08/16/23 10:20 Thrive Assessment: Date of Thrive Assessment Date Thrive assessed 05/25/23 08/16/23 10:20 Const Other: Alert oriented x3, ambulatory with a slow gait. No acute cardiorespiratory distress noted Orientation/consciousness: patient oriented x3 Resp Auscultation: clear to auscultation bilaterally Cardio Other: S1-S2 present regular rate and rhythm Back/Spine/Pelvis Sacroiliac joints: on the right by compression of iliac crest and by passive hyperextension of lower ext Neuro General: patient oriented x3, gait normal, tone normal, moves all extremities, Normal light touch and pain sensation and no focal motor deficits Extrem General: Yes full ROM, Yes no joint enlargement and Yes no pedal edema Assessment and Plan Assessment & Plan (1) Pain of right sacroiliac joint: Code(s): M53.3 - Sacrococcygeal disorders, not elsewhere classified (2) Lateral pain of right hip: Code(s): M25.551 - Pain in right hip Plan Prescription sent for nabumetone 500 mg per tablet to take 1 tablet twice a day as needed for pain. Has no if symptoms persists after 1 week Medications: New nabumetone take with food or milk 500 mg PO BID PRN 60 tabs 0RF pain in back and hip Coding Level of Care Code Est Pt Level 3 (83778) Diagnoses Pain of right sacroiliac joint M53.3 Lateral pain of right hip M25.551
== END 2023-08-16 10:38 | disposition home or self-care (01) ==
PROVIDERS: PCP Internal Medicine; Visit Provider Internal Medicine
DX: M53.3 Sacrococcygeal disorders, not elsewhere classified (principal); M25.551 Pain in right hip
CPT/HCPCS: 99213

== ENCOUNTER → 2023-08-23 13:36 | Outpatient (REF) | payer OTHER, SELFPAY | LOC: HO.SL 13:36 | PROVIDERS: PCP Internal Medicine; Visit Provider Nurse Practitioner Family | DX: G47.00 Insomnia, unspecified (principal); R06.83 Snoring | CPT/HCPCS: 95806 ==

== ENCOUNTER → 2023-08-23 13:50 | Outpatient (BNV) | payer OTHER, SELFPAY | PROVIDERS: PCP Internal Medicine; Visit Provider Psychiatry & Neurology Neurology | DX: R06.83 Snoring (principal) | CPT/HCPCS: 95806 ==

== ENCOUNTER → 2023-10-24 07:30 | Outpatient (BNV) | payer OTHER, SELFPAY | PROVIDERS: PCP Internal Medicine; Visit Provider Radiology Diagnostic Radiology | DX: Z12.31 Encounter for screening mammogram for malignant neoplasm of breast (principal) | CPT/HCPCS: 77063; 77067 ==

== ENCOUNTER 2023-10-24 07:33 | Outpatient (REF) | payer OTHER, SELFPAY | END 2023-10-24 07:34 | disposition home or self-care (01) | LOC: HO.MAMMO 07:33 | PROVIDERS: PCP Internal Medicine; Visit Provider Internal Medicine | DX: Z12.31 Encounter for screening mammogram for malignant neoplasm of breast (principal) | CPT/HCPCS: 77063; 77067 ==

== ENCOUNTER 2023-11-30 08:05 | Outpatient (AMB) | payer OTHER, SELFPAY ==
--- NOTE | 2023-11-30 08:10 | A.OFFVIS_ITS ---
Intake Vital Signs 11/30/23 08:18 Height 5 ft 7 in Weight 196 lb 2 oz BMI 30.7 BP 112/70 Blood Pressure Location Lt brachial Position Sitting Pulse 79 Pulse Source Pulse Oximeter Pulse Oximetry (%) 97 Oxygen Delivery Method Room Air Intake Visit Reasons: 4 mnts f/u appt Intake Note: Patient presents for 4 months F/U. Allergies morphine Adverse Reaction (Unknown, Verified 11/30/23 08:16) Itching prednisone Adverse Reaction (Unknown, Uncoded 09/20/23 05:14) leg paralysis, and unable to walk HPI HPI Comments History of Present Illness Details 48 y/o female patient presents for follo w up of sleep study. The home sleep study result was normal sleep. The AHI was less than 4/hr and oxygen luis wa 80%. The duration of O2 sat below 88% for 6.3 min. Pt reports that the home sleep study equipment lights kept turning orange, and she did not sleep well. Pt continues to endorse difficulty falling asleep and staying sleep. She goes to bed 9-10 pm but can't fall asleep until midnight to 1 am. And she wakes up almost every hour and it is hard to go back to sleep. Pt is tired and exhausted but can't even take a nap. She tried 10 mg of melatonin in the past, but it did not help. She also tried amitriptyline, it helped her to fall asleep at the beginning but very groggy the next day. Pt had bladder mesh removal recently, and her left leg can be jumpy at night. She tried gabapenetin in the past, she did not tolerate it. She tried calm supplement, but it also not help her to staying sleep. [facility] Medical History Polyarthralgia Frequent nocturnal awakening Stress incontinence due to pelvic organ prolapse CLEMENTINE III (cervical intraepithelial neoplasia grade III) with severe dysplasia Generalized anxiety disorder Hx of cervical cancer Chronic GERD Vitamin D deficiency Chronic pelvic pain in female Mixed stress and urge urinary incontinence Intermittent lightheadedness Surgical menopause Hx LEEP (loop electrosurgical excision procedure), cervix, Surgical History H/O colonoscopy History of total vaginal hysterectomy (TVH) History of suburethral sling procedure Hx of tubal ligation Family History Father Hx of cancer of lung Mother History of mental problems Hx of bipolar disorder Mental health disorder Arthritis Osteoporosis Maternal Grandmother History of CVA (cerebrovascular accident) Hx of coronary artery disease Arthritis Osteoporosis Fibromyalgia Son Substance use disorder Daughter Mental health disorder Social History Household Members: Spouse Housing: House Alcohol intake: current Alcohol intake frequency: a few times a month Patient Tobacco Use Status: Never used Tobacco e-Cigarette/Vaping Use: Never Used service: No Current occupational status: employed Current occupation: [employer] Sexual orientation: Straight/Heterosexual Gender identity: Female Cognitive needs: No Hearing needs: No Vision needs: No Review of Systems Const All systems reviewed & are unremarkable except as noted in HPI and below Physical Exam Vital Signs: Last Vital Signs Pulse 79 11/30/23 08:18 BP 112/70 11/30/23 08:18 Pulse Ox 97 11/30/23 08:18 Oxygen Delivery Method Room Air 11/30/23 08:18 BMI result Body Mass Index 30.7 Const General: cooperative and tired appearing Nutritional Appearance: obese Orientation/consciousness: patient oriented x3 Neck Neck: Yes full ROM and Yes supple Resp Effort & Inspection: normal respiratory effort and able to speak in complete sentences Neuro General: patient oriented x3, gait normal and moves all extremities Cranial nerves: Yes CN's II-XII intact bilaterally Gait exam (Neuro): Normal gait present Motor exam (neuro): 5/5 motor strength present throughout, Pronator motor function not present and no tremor noted Psych Appearance: grossly normal Mental Status: mental status grossly normal Speech and movement: Normal speech and movement present Affect: normal affect Attitude: cooperative Assessment & Plan Assessment & Plan (1) Snoring: Code(s): R06.83 - Snoring (2) Insomnia: Code(s): G47.00 - Insomnia, unspecified (3) Daytime sleepiness: Code(s): R40.0 - Somnolence Plan Pt is advised to undergo in lab sleep study to assess for sleep apnea, or sleep related movement disorder. The home sleep study was inconclusive. Will f/u with pt after study to discuss results and appropriate treatment options. Sleep hygiene education provided. Advised patient to read Say Good Night to Insomnia, and practice the 6 weeks sleep hygiene program. Limit caffeine intake and electronic use before bedtime. Wt reduction advised. Advised patient to try nortriptyline 10 mg qHS instead of amitriptyline. Pt to call with any worsening concerns or questions. Orders: Orders RT PSG in-lab sleep study Today G47.00 - Insomnia, unspecified, R06.83 - Snoring, R40.0 - Somnolence Medications: New nortriptyline 10 mg PO BEDTIME 30 days 30 caps 2RF Coding Level of Care Code Est Pt Level 3 (11178) Diagnoses Snoring R06.83 Insomnia G47.00 Daytime sleepiness R40.0
[2023-11-30 08:18] VITALS: BP 112/70; PULSE 79; O2SAT 97; BMI 30.7
== END 2023-11-30 08:40 | disposition home or self-care (01) ==
PROVIDERS: PCP Internal Medicine; Visit Provider Nurse Practitioner Family
DX: R06.83 Snoring (principal); G47.00 Insomnia, unspecified; R40.0 Somnolence
CPT/HCPCS: 99213

== ENCOUNTER → 2023-11-30 08:05 | Outpatient (BNVA) | payer OTHER, SELFPAY | PROVIDERS: PCP Internal Medicine; Visit Provider Nurse Practitioner Family ==

== ENCOUNTER → 2023-12-17 20:30 | Outpatient (REF) | payer OTHER, SELFPAY | LOC: HO.SL 20:30 | PROVIDERS: PCP Internal Medicine; Visit Provider Nurse Practitioner Family | DX: R40.0 Somnolence (principal); R06.83 Snoring; G47.00 Insomnia, unspecified | CPT/HCPCS: 95810 ==

== ENCOUNTER → 2023-12-17 21:31 | Outpatient (BNV) | payer OTHER, SELFPAY | PROVIDERS: PCP Internal Medicine; Visit Provider Psychiatry & Neurology Neurology | DX: R40.0 Somnolence (principal); R06.83 Snoring | CPT/HCPCS: 95810 ==

== ENCOUNTER 2024-02-27 11:58 | Outpatient (AMB) | payer OTHER, SELFPAY ==
--- NOTE | 2024-02-27 11:59 | MHC.OFFVIS ---
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 No complaints. Last Pap/HPV was negative in 02/15 Last Mammogram was BI-RADS 1 in 10/20 Last Colonoscopy was in 06/17, the recommendation was to repeat in 3 years [facility] Medical History Polyarthralgia Frequent nocturnal awakening Stress incontinence due to pelvic organ prolapse CLEMENTINE III (cervical intraepithelial neoplasia grade III) with severe dysplasia Generalized anxiety disorder Hx of cervical cancer Chronic GERD Vitamin D deficiency Chronic pelvic pain in female Mixed stress and urge urinary incontinence Intermittent lightheadedness Surgical menopause Hx LEEP (loop electrosurgical excision procedure), cervix, Surgical History H/O colonoscopy History of total vaginal hysterectomy (TVH) History of suburethral sling procedure Hx of tubal ligation Family History Father Hx of cancer of lung Mother History of mental problems Hx of bipolar disorder Mental health disorder Arthritis Osteoporosis Maternal Grandmother History of CVA (cerebrovascular accident) Hx of coronary artery disease Arthritis Osteoporosis Fibromyalgia Son Substance use disorder Daughter Mental health disorder Social History Household Members: Spouse Housing: House Alcohol intake: current Alcohol intake frequency: a few times a month Patient Tobacco Use Status: Never used Tobacco e-Cigarette/Vaping Use: Never Used service: No Current occupational status: employed Current occupation: [employer] Sexual orientation: Straight/Heterosexual Gender identity: Female Cognitive needs: No Hearing needs: No Vision needs: No Female Reproductive History Menstrual Menopause type: surgical History of abnormal pap smear: Yes (CLEMENTINE 3) Date of Mammogram: 10/24/23 Review of Systems Const All systems reviewed & are unremarkable except as noted in HPI and below Card Reports as per HPI Resp Reports as per HPI GI Reports as per HPI and Reports no additional complaints Reports as per HPI Physical Exam Vital Signs: Last Vital Signs BP 120/78 02/27/24 12:00 BMI result Body Mass Index 29.8 Const General: cooperative, healthy appearing and comfortable Chest Chest palpation & inspection: normal inspection of the chest and normal palpation of entire chest wall Breast/axilla inspection: normal inspection of the breasts and normal inspection of the axillae Breast/axilla palpation: normal palpation of the breasts, normal palpation of the axillae and no axillary lymphadenopathy Resp Effort & Inspection: normal respiratory effort Auscultation: clear to auscultation bilaterally Percussion: percussion normal Cardio Palpation: normal PMI Rate: regular rate Rhythm: regular rhythm Heart sounds: no murmurs and no rubs Peripheral pulses: Peripheral pulses 2+ throughout GI Inspection: Yes normal to inspection Palpation (GI): Soft to palpation, nontender, no guarding, not rigid and No hepatosplenomegaly present Percussion: Yes normal to percussion Auscultation: normal bowel sounds Rectal Exam - Female: deferred External Female Exam: lesion Speculum Exam - Vagina: normal appearance of the vagina, normal vaginal discharge and erythematous Speculum Exam - Cervix: Cervix absent Bimanual exam- vagina & uterus: uterus absent Bimanual Exam- Adnexa, other: Other (No masses) Assessment & Plan Assessment & Plan (1) Well woman exam: Code(s): Z01.419 - Encounter for gynecological examination (general) (routine) without abnormal findings Category: Medical Plan: Co testing not indicated . Counseled the patient about the recommended dietary allowance of 1200 mg of Calcium & 600 IU of vitamin D. Instructions given the patient to schedule next screening mammogram in 10/21. The patient was instructed to perform monthly self-breast exams and schedule annual exam in a year. All questions answered and the patient verbalized understanding. Coding Level of Care Code Est Pt Prev Care 40-64y(10333) Diagnoses Well woman exam Z01.419
[2024-02-27 12:00] VITALS: BP 120/78; BMI 29.8
== END 2024-02-27 12:17 | disposition home or self-care (01) ==
LOC: HO.HWS 11:58
PROVIDERS: PCP Internal Medicine; Visit Provider Obstetrics & Gynecology
DX: Z01.419 Encounter for gynecological examination (general) (routine) without abnormal findings (principal)
CPT/HCPCS: 99396

== ENCOUNTER → 2024-02-27 11:58 | Outpatient (BNVA) | payer OTHER, SELFPAY | PROVIDERS: PCP Internal Medicine; Visit Provider Obstetrics & Gynecology ==

== ENCOUNTER 2024-04-07 12:01 | Outpatient (REF) | payer OTHER, SELFPAY ==
[2024-04-07 13:11] LABS: Appearance Urine Cloudy; Color Urine Dark Yellow; Glucose Urine UA Negative (Negative); Leukocyte Esterase Urine Small (1+) (Negative); Nitrite Urine Positive (Negative); PH 5.5 (5.0-9.0); Specific Gravity - Urine 1.025 (1.005-1.025); UMIC TRIGGER UA YES; Urine Blood Trace (Negative); Urine Ketones Trace mg/dL (Negative); Urine Protein 30 (1+) mg/dL (Neg-Trace)
[2024-04-07 13:16] LABS: Bacteria Urine 4+ (None Seen); WBC Urine >50 /HPF (0-5)
== END 2024-04-07 12:02 | disposition home or self-care (01) ==
LOC: HO.HMGCLDS 12:01
PROVIDERS: PCP Internal Medicine; Visit Provider Internal Medicine
DX: R30.0 Dysuria (principal)
CPT/HCPCS: 81001; 87086; 87088; 87186

== ENCOUNTER 2024-05-19 08:00 | Outpatient (AMB) | payer OTHER, SELFPAY ==
[2024-05-19 08:04] VITALS: BP 116/78; PULSE 61; O2SAT 99; BMI 29.9
--- NOTE | 2024-05-19 08:04 | MHC.OFFVIS ---
Vital Signs 05/19/24 08:04 Height 5 ft 7 in Weight 191 lb BMI 29.9 BP 116/78 Blood Pressure Location Rt brachial Position Sitting Pulse 61 Pulse Source Pulse Oximeter Pulse Oximetry (%) 99 Oxygen Delivery Method Room Air Intake Visit Reasons: Follow Up Intake Note: Patient presents for follow up. patient still not sleeping well. Allergies morphine Adverse Reaction (Unknown, Verified 05/19/24 08:06) Itching prednisone Adverse Reaction (Unknown, Uncoded 05/19/24 08:06) leg paralysis, and unable to walk Medication List - Last Reconciled 05/19/24 by ZULAY Escobar amitriptyline 10 mg PO BEDTIME [id number] 250-250-65 mg (Excedrin Extra Strength) 1 tab PO Q4-6H PRN diclofenac sodium 1% (Arthritis Pain (diclofenac)) 2 grams topical QID PRN lidocaine 5% (Lidoderm) 1 patch topical DAILY PRN MDD remove after 12 hours nabumetone 500 mg PO BID PRN nitrofurantoin monohyd/m-cryst 100 mg (Macrobid) 100 mg PO Q12H 5 days omeprazole 20 mg PO DAILY HPI Comments Details: 48-yr-old female presents for f/u visit. Pt denies any significant interval medical changes. In-lab sleep study did not show sleep apnea or PLMS. Pt reports she feels like she is in a constant state of brain fog, fatigue, but cannot sleep. Pt goes to bed at 9:30-10pm, and falling asleep around 11pm. And then wakes up every 2 hrs, but then she cannot easily fall back asleep. She then gets up around 4:30-5am. Denies naps. States her mind just races and is thinking about at times irrelevant things. She is prone to watch the clock at night. She is having more foot and [place] leg cramps at night. She is clenching her teeth more, at night but now during the day as well- and this trigger a migraine headaches. Her migraine bilateral temporal pulsation, pressure- like her eyes will pop out a/w photophobia, phonophobia, nausea, activity intolerance. Pt has tried ? triptans in the past- caused facial numbness, throat closing sensation, and sleepiness but was effective. This occurs 1 x/week. Using Excedrin and rest- which takes the edge off. She can be off-balance at times. Her surgeon, Dr Aranza Magallanes urology at [facility], advised her not to try Nortriptyline as they felt the Amitriptyline was going to be better for the nerve pain. They recently increased the dose to 25mg bid. Pt is scheduled for an upcoming bladder sling removal and a fascia replacement. She is not working- has been out since an accident last February. [facility] Medical History (Updated 05/19/24 @ 08:48 by ZULAY Escobar) Anemia Polyarthralgia Frequent nocturnal awakening Stress incontinence due to pelvic organ prolapse CLEMENTINE III (cervical intraepithelial neoplasia grade III) with severe dysplasia Generalized anxiety disorder Hx of cervical cancer Chronic GERD Vitamin D deficiency Chronic pelvic pain in female Mixed stress and urge urinary incontinence Intermittent lightheadedness Surgical menopause Hx LEEP (loop electrosurgical excision procedure), cervix, Surgical History H/O colonoscopy History of total vaginal hysterectomy (TVH) History of suburethral sling procedure Hx of tubal ligation Family History Father Hx of cancer of lung Mother History of mental problems Hx of bipolar disorder Mental health disorder Arthritis Osteoporosis Maternal Grandmother History of CVA (cerebrovascular accident) Hx of coronary artery disease Arthritis Osteoporosis Fibromyalgia Son Substance use disorder Daughter Mental health disorder Social History Household Members: Spouse Housing: House Alcohol intake: current Alcohol intake frequency: a few times a month Patient Tobacco Use Status: Never used Tobacco e-Cigarette/Vaping Use: Never Used service: No Current occupational status: employed Current occupation: [employer] Sexual orientation: Straight/Heterosexual Gender identity: Female Cognitive needs: No Hearing needs: No Vision needs: No Physical Exam Vital Signs: Last Vital Signs Pulse 61 05/19/24 08:04 BP 116/78 05/19/24 08:04 Pulse Ox 99 05/19/24 08:04 Oxygen Delivery Method Room Air 05/19/24 08:04 BMI result Body Mass Index 29.9 Const General: cooperative and no acute distress Orientation/consciousness: patient oriented x3 Resp Effort & Inspection: normal respiratory effort and able to speak in complete sentences Neuro General: patient oriented x3 Cranial nerves: Yes CN's II-XII intact bilaterally Cognition (Neuro): normal cognition Psych Appearance: grossly normal Mental Status: mental status grossly normal Speech and movement: Normal speech and movement present Affect: normal affect Attitude: cooperative Assessment & Plan Assessment & Plan (1) Insomnia: Code(s): G47.00 - Insomnia, unspecified Category: Medical (2) Fatigue: Code(s): R53.83 - Other fatigue Category: Medical (3) Leg cramps: Code(s): R25.2 - Cramp and spasm Category: Medical (4) Generalized anxiety disorder: Code(s): F41.1 - Generalized anxiety disorder Category: Medical Plan Reviewed in-lab sleep study- no evidence of sleep apnea or PLMS. Information shared on sleep hygiene resources. Trial Gabapentin 100-300mg qhs- in hopes this helps muscle cramps and sleep. Trial Magnesium 400mg qhs- in hopes this helps muscle cramps and sleep. Trial OTC mouth guard. Check labs for common etiologies of fatigue, muscle cramps, spasms. Fatigue, brain fog, and off-balance s/s are likely exacerbated by Amitriptyline 25mg bid regimen. Advised to monitor if addition of Gabapentin helps pelvic neuropathic pain, if so this may be a better tolerated tx than daytime Amitriptyline use. Will follow-up upon review of above and patient to follow-up in clinic in 6 months or sooner prn. Orders: Orders Hemoglobin A1c Today D64.9 - Anemia, unspecified, E55.9 - Vitamin D deficiency, unspecified, M25.50 - Pain in unspecified joint, R53.83 - Other fatigue Vitamin B12 and Folate Today D64.9 - Anemia, unspecified, E55.9 - Vitamin D deficiency, unspecified, M25.50 - Pain in unspecified joint, R53.83 - Other fatigue Vitamin D 25-OH (D2 and D3) Today D64.9 - Anemia, unspecified, E55.9 - Vitamin D deficiency, unspecified, M25.50 - Pain in unspecified joint, R53.83 - Other fatigue Ferritin Today D64.9 - Anemia, unspecified, E55.9 - Vitamin D deficiency, unspecified, M25.50 - Pain in unspecified joint, R53.83 - Other fatigue TSH reflex Free T4 Today D64.9 - Anemia, unspecified, E55.9 - Vitamin D deficiency, unspecified, M25.50 - Pain in unspecified joint, R53.83 - Other fatigue IRON PROFILE Today D64.9 - Anemia, unspecified, E55.9 - Vitamin D deficiency, unspecified, M25.50 - Pain in unspecified joint, R53.83 - Other fatigue Comprehensive Met. Panel Today D64.9 - Anemia, unspecified, E55.9 - Vitamin D deficiency, unspecified, M25.50 - Pain in unspecified joint, R53.83 - Other fatigue Complete Blood Count Auto Diff Today D64.9 - Anemia, unspecified, E55.9 - Vitamin D deficiency, unspecified, M25.50 - Pain in unspecified joint, R53.83 - Other fatigue Lipid Panel with Reflex Today D64.9 - Anemia, unspecified, E55.9 - Vitamin D deficiency, unspecified, M25.50 - Pain in unspecified joint, R53.83 - Other fatigue Magnesium Today R25.2 - Cramp and spasm Creatine Kinase Total Today R25.2 - Cramp and spasm Medications: New magnesium oxide may hold for loose stools 400 mg PO BEDTIME 30 tabs 6RF 30 days gabapentin 100 - 300 mg (1 - 3 x 100 mg) PO BEDTIME 90 caps 3RF 30 days Discontinued nortriptyline Discontinued Reason: Doctor's Order 10 mg PO BEDTIME 30 days 30 caps 2RF Coding Level of Care Code Est Pt Level 4 (26660) Diagnoses Insomnia G47.00 Fatigue R53.83 Leg cramps R25.2 Generalized anxiety disorder F41.1
== END 2024-05-19 09:36 | disposition home or self-care (01) ==
PROVIDERS: PCP Internal Medicine; Visit Provider Nurse Practitioner Family
DX: G47.00 Insomnia, unspecified (principal); R53.83 Other fatigue; R25.2 Cramp and spasm; F41.1 Generalized anxiety disorder
CPT/HCPCS: 99214

== ENCOUNTER → 2024-05-19 08:00 | Outpatient (BNVA) | payer OTHER, SELFPAY | PROVIDERS: PCP Internal Medicine; Visit Provider Nurse Practitioner Family ==

== ENCOUNTER 2024-05-20 10:08 | Outpatient (REF) | payer OTHER, SELFPAY ==
[2024-05-20 13:14] LABS: MANUAL DIFF FLAG NO
[2024-05-20 13:33] LABS: Basophils Percent Auto 0.2 % (0-2); Eosinophils Absolute Auto 0.2 X10*3/uL (0.0-0.4); Eosinophils Percent Auto 1.4 % (0-4); Hematocrit 41.3 % (37.0-47.0); Hemoglobin 13.5 g/dl (12.0-16.0); Imm Gran Abs Auto 0.07 X10*3/uL (0.00-0.03); Imm Gran Pct Auto 0.6 % (0.0-0.4); Lymphocytes Absolute Auto 2.6 X10*3/uL (1.2-4.9); Lymphocytes Percent Auto 23.9 % (20-40); Mean Corpuscular HGB Conc 32.7 g/dl (31.0-35.0); Mean Corpuscular Hemoglobin 30.1 pg (27.0-33.0); Mean Corpuscular Volume 92.2 fL (80.0-98.0); Mean Platelet Volume 10.3 fL (9.4-12.3); Monocytes Absolute Auto 0.6 X10*3/uL (0.1-1.2); Monocytes Percent Auto 5.1 % (2-11); Neutrophils Absolute Auto 7.5 x10*3/uL (2.0-8.3); Neutrophils Percent Auto 68.8 % (45-73); Platelet Count 252 X10*3/uL (160-400); Red Blood Count 4.48 X10*6/uL (4.20-5.50); Red Cell Distribution Width 12.6 % (11.0-16.0); White Blood Count 10.9 X10*3/uL (4.8-10.8)
[2024-05-20 14:01] LABS: Alanine Aminotransferase 16 U/L (0-31); Albumin Level 4.4 g/dL (3.5-5.0); Alkaline Phosphatase 75 U/L (39-117); Anion Gap 10 (12-20); Aspartate Amino Transferase 13 U/L (5-31); Bilirubin Total 0.6 mg/dL (0.0-1.0); Blood Urea Nitrogen 21 mg/dL (9-16); Calcium 9.3 mg/dL (8.4-10.2); Carbon Dioxide 28 mmol/L (22-29); Chloride 107 mmol/L (96-108); Cholesterol 228 mg/dL (<200); Estimated Glomerular Filt Rate > 60; Glucose Random 96 mg/dL (60-115); HDL Cholesterol 54 mg/dL (>40); Iron 108 mcg/dL (30-160); LDL Cholesterol Calculated 151 mg/dL (<100); Magnesium 2.5 mg/dL (1.6-2.6); Percent Iron Saturation 36 % (15-50); Potassium 4.4 mmol/L (3.3-5.1); Sodium 141 mmol/L (135-145); Total Iron Binding Capacity 297 mcg/dL (228-428); Total Protein 7.3 g/dL (6.5-8.0); Triglycerides 119 mg/dL (<150); Unsaturated Iron Binding 189 ug/dL
[2024-05-20 14:06] LABS: Ferritin 263 ng/mL (10-250); TSH reflex Free T4 1.54 uIU/mL (0.32-4.0)
[2024-05-20 14:24] LABS: Reflex LDLD? No
[2024-05-20 14:36] LABS: Folate 7.8 ng/mL (> or = 4.0); Vitamin B12 313 pg/mL (200-900)
[2024-05-20 16:03] LABS: Estimated Average Glucose 103 mg/dL; Hemoglobin A1c % 5.2 % (<6.0)
[2024-05-25 13:49] LABS: Vitamin D 25-OH, D2 <4 ng/mL; Vitamin D 25-OH, D3 32 ng/mL; Vitamin D 25-OH, Total 32 ng/mL (30-100)
== END 2024-05-20 10:09 | disposition home or self-care (01) ==
LOC: HO.HMGCLDS 10:08
PROVIDERS: PCP Internal Medicine; Visit Provider Nurse Practitioner Family
DX: D64.9 Anemia, unspecified (principal); M25.59 Pain in other specified joint; M25.50 Pain in unspecified joint; E55.9 Vitamin D deficiency, unspecified; R53.83 Other fatigue; R25.2 Cramp and spasm; Z13.1 Encounter for screening for diabetes mellitus
CPT/HCPCS: 36415; 80053; 80061; 82306; 82550; 82607; 82728; 82746; 83036; 83540; 83735; 84443; 85025

== ENCOUNTER 2024-06-06 11:39 | Outpatient (REF) | payer OTHER, SELFPAY ==
[2024-06-10 15:00] LABS: Homocysteine 11.3 umol/L (<10.4)
[2024-06-11 19:49] LABS: Methylmalonic Acid 132 nmol/L (55-335)
== END 2024-06-06 11:40 | disposition home or self-care (01) ==
LOC: HO.HMGCLDS 11:39
PROVIDERS: PCP Internal Medicine; Visit Provider Nurse Practitioner Family
DX: R79.89 Other specified abnormal findings of blood chemistry (principal)
CPT/HCPCS: 36415; 83090; 83921

== ENCOUNTER 2024-06-12 07:59 | Outpatient (AMB) | payer OTHER, SELFPAY ==
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
[2024-06-12 08:07] VITALS: BP 118/70; PULSE 78; O2SAT 98; BMI 30.2
== END 2024-06-12 09:14 | disposition home or self-care (01) ==
PROVIDERS: PCP Internal Medicine; Visit Provider Internal Medicine
DX: Z00.01 Encounter for general adult medical examination with abnormal findings (principal); F41.8 Other specified anxiety disorders; R10.2 Pelvic and perineal pain; G89.29 Other chronic pain; G47.00 Insomnia, unspecified; M25.50 Pain in unspecified joint; K21.9 Gastro-esophageal reflux disease without esophagitis; Z86.0101 Personal history of adenomatous and serrated colon polyps; E78.5 Hyperlipidemia, unspecified

== ENCOUNTER → 2024-06-12 07:59 | Outpatient (BNVA) | payer OTHER, SELFPAY | PROVIDERS: PCP Internal Medicine; Visit Provider Internal Medicine | DX: Z00.01 Encounter for general adult medical examination with abnormal findings (principal); F41.8 Other specified anxiety disorders; G89.29 Other chronic pain; R10.2 Pelvic and perineal pain; G47.00 Insomnia, unspecified; M25.50 Pain in unspecified joint; K21.9 Gastro-esophageal reflux disease without esophagitis; E78.5 Hyperlipidemia, unspecified; Z79.899 Other long term (current) drug therapy; Z86.0101 Personal history of adenomatous and serrated colon polyps | CPT/HCPCS: 96127 ==

== ENCOUNTER 2024-07-11 10:20 | Outpatient (AMB) | payer OTHER, SELFPAY ==
--- NOTE | 2024-07-11 10:17 | A.OFFPC_ITS ---
Intake Visit Reasons: 4 weeks Intake Note: Pt is having a TH visit f/u for her duloxetine Allergies morphine Adverse Reaction (Unknown, Verified 07/11/24 10:29) Itching prednisone Adverse Reaction (Unknown, Uncoded 07/11/24 10:29) leg paralysis, and unable to walk Medication List - Last Reconciled 07/11/24 by Celsa Henderson MD acetaminophen ER (Tylenol 8 Hour) 650 mg PO Q8H kgfzvix-uxfgqbbusdkmo-rjdljuvk 250-250-65 mg (Excedrin Extra Strength) 1 tab PO Q4-6H PRN diclofenac sodium 1% (Arthritis Pain (diclofenac)) 2 grams topical QID PRN duloxetine 30 mg PO DAILY gabapentin 300 mg PO BEDTIME magnesium oxide 400 mg PO BEDTIME 30 days omeprazole 20 mg PO DAILY sennosides-docusate sodium 8.6-50 mg (Senexon-S) tabs PO Tobacco use date assessed: 07/11/24 Dental Screening Dental Screen Date: 07/11/24 Did you have a dental visit in the last 12 months?: Yes Did you have a dental problem in the last 6 months where you did not have access to dental care?: No Was dental information given to patient?: Patient has dentist HPI 4 weeks HPI Details 48-year-old lady with depression and anx iety, here today for follow-up. She was started on duloxetine ER 30 mg once a day in a.m., but does not notice any change in her mood or anxiety attacks, but has not been having any side effects from taking the medication. She is agreeable to continuing with the medication and have the dose adjusted. PFSH Medical History Dyslipidemia Hx of adenomatous polyp of colon Family history of colon cancer Depression with anxiety Anemia Polyarthralgia Frequent nocturnal awakening CLEMENTINE III (cervical intraepithelial neoplasia grade III) with severe dysplasia Hx of cervical cancer Chronic GERD Vitamin D deficiency Chronic pelvic pain in female Mixed stress and urge urinary incontinence Intermittent lightheadedness Surgical menopause Hx LEEP (loop electrosurgical excision procedure), cervix, Surgical History Hx of hysterectomy H/O colonoscopy History of total vaginal hysterectomy (TVH) History of suburethral sling procedure Hx of tubal ligation Family History Father Hx of cancer of lung Mother History of mental problems Hx of bipolar disorder Mental health disorder Arthritis Osteoporosis Maternal Grandmother History of CVA (cerebrovascular accident) Hx of coronary artery disease Arthritis Osteoporosis Fibromyalgia Son Substance use disorder Daughter Mental health disorder Social History Household Members: Spouse Housing: House Alcohol intake: current Alcohol intake frequency: a few times a month Patient Tobacco Use Status: Never used Tobacco e-Cigarette/Vaping Use: Never Used service: No Current occupational status: employed Current occupation: [employer] Sexual orientation: Straight/Heterosexual Gender identity: Female Cognitive needs: No Hearing needs: No Vision needs: No Questionnaire Thrive Questionnaire Date Thrive assessed: 06/05/24 I am a: Patient What is your living situation today?: I have a steady place to live Within the past 12 months, did the food you bought not last and you didn't have the money to get more?: Never true Within the past 12 months, did you worry whether your food would run out before you got money to buy more?: Never true Do you have trouble paying for medicines?: No Do you have trouble getting transportation to medical appointments?: No Do you have trouble paying your heating and electricity bill?: No Do you have trouble taking care of your child, family member or friend?: I choose not to answer this question Do you have trouble with day-to-day activities such as bathing, preparing meals, shopping, managing finances, etc.?: Yes Are you currently unemployed and looking for a job?: I choose not to answer this question Are you interested in more education?: No Please select the resources that you would like help with: None THRIVE Score: 0 APRIL-7 AMB Questionnaire APRIL-7 Date APRIL - 7 assessed: 06/12/24 Source: Developed by Drs. Prakash Ruelas, Nereyda Serra, John Fischer and colleagues, with an educational terrance from [employer]. Review of Systems Const Reports body aches, Reports difficulty sleeping, Denies fever(s), Denies headache(s) and Denies weakness Eyes Reports no additional complaints ENT Denies dysphagia, Denies dizziness, Denies headache(s), Denies nasal congestion and Denies sore throat Card Denies chest pain, Denies lightheadedness and Denies dyspnea Resp Denies chest congestion, Denies cough and Denies dyspnea GI Denies abdominal pain, Denies change in bowel habits, Denies dysphagia and Denies heartburn Denies urinary frequency, Denies dyspareunia, Denies dysuria, Reports urinary incontinence and Reports urinary urgency Musc Reports arthralgias and Reports stiffness Skin/Breast Denies breast pain and Denies breast mass Neuro Denies dizziness, Denies headache(s), Denies seizure-like activity and Denies weakness Psych Reports no additional complaints Endo Reports no additional complaints Dom/Lymph Reports no additional complaints Aller/Immun Reports no additional complaints Physical exam (Primary Care) Tobacco/Smoking Status: Tobacco use Status Tobacco use date assessed 07/11/24 07/11/24 10:19 Patient Tobacco Use Status Never used Tobacco 07/11/24 10:19 e-Cigarette/Vaping Use Never Used 07/11/24 10:19 Thrive Assessment: Date of Thrive Assessment Date Thrive assessed 06/05/24 07/11/24 10:19 Telehealth Telehealth Telehealth Platform: [employer] Location of provider rendering services: practice address Location of patient: address on file Patient Identification confirmed using: Name, : Yes Telehealth method: video Patient verbally consented to treatment: Yes Patient verbally consented to billing insurance company: Yes Patient informed of any privacy concerns related to visit: Yes Minutes spent on Phone/Video with Pt.: 15 Coding Level of Care Code Tele Est Pt Level 3 (53283) Diagnoses Depression with anxiety F41.8 Assessment & Plan Assessment & Plan (1) Depression with anxiety: Code(s): F41.8 - Other specified anxiety disorders Category: Medical Plan: Will continue on duloxetine, but dose increased to 60 mg per tablet taken once a day. Will see her back for follow-up in 08/2024 Medications: Changed From gabapentin 100 - 300 mg (1 - 3 x 100 mg) PO BEDTIME 30 days 90 caps 3RF To gabapentin 300 mg PO BEDTIME ZULAY Escobar From duloxetine 30 mg PO DAILY 30 caps 1RF To duloxetine 60 mg PO DAILY 30 caps 1RF eClsa Henderson MD
== END 2024-07-11 11:14 | disposition home or self-care (01) ==
LOC: HO.HMCC 10:20
PROVIDERS: PCP Internal Medicine; Visit Provider Internal Medicine
DX: F41.8 Other specified anxiety disorders (principal)

== ENCOUNTER 2024-09-19 08:05 | Outpatient (AMB) | payer OTHER, SELFPAY ==
--- NOTE | 2024-09-19 08:02 | MHC.PC.OV ---
Intake Visit Reasons: Review meds Intake Note: Pt is having a telehealth visit to review meds Allergies morphine Adverse Reaction (Unknown, Verified 09/19/24 08:07) Itching prednisone Adverse Reaction (Unknown, Uncoded 09/19/24 08:07) leg paralysis, and unable to walk Medication List - Last Reconciled 09/19/24 by Celsa Henderson MD acetaminophen ER (Tylenol 8 Hour) 650 mg PO Q8H fnapudu-zdhvghtzxfqcd-[id number] 250-250-65 mg (Excedrin Extra Strength) 1 tab PO Q4-6H PRN diclofenac sodium 1% (Arthritis Pain (diclofenac)) 2 grams topical QID PRN duloxetine 60 mg PO DAILY gabapentin 200 mg Q evening and 300 mg q.h.s. orally bedtime; 30 days magnesium oxide 400 mg PO BEDTIME 30 days omeprazole 20 mg PO DAILY sennosides-docusate sodium 8.6-50 mg (Senexon-S) tabs PO Tobacco use date assessed: 09/19/24 Dental Screening Dental Screen Date: 09/19/24 Did you have a dental visit in the last 12 months?: Yes Did you have a dental problem in the last 6 months where you did not have access to dental care?: No Was dental information given to patient?: Patient has dentist HPI Review meds HPI Details 48-year-old lady here today for follow-up on her depression with anxiety. Currently on 60 mg of duloxetine which she takes at night. Patient states that it has been helping control her anxiety attacks , but has been complaining of feeling tired more than usual. Uncertain whether this was from the duloxetine or the gabapentin which was increased to 500 mg at bedtime by her neurologist to help her sleep. Patient states however that this has not been helping her with her sleep, still has frequent awakenings at night , with obstructive sleep apnea and restless leg syndrome ruled out. She is also taking amitriptyline 25 mg 1 tablet twice a day for which he takes for migraine prophylaxis. She also thinks that sleep might be affected because of chronic low back pain. Goes to [facility] pain management clinic and has received several steroid injections in her SI joint and coccyx area which has not really been fully effective. [facility] Medical History Dyslipidemia Hx of adenomatous polyp of colon Family history of colon cancer Depression with anxiety Anemia Polyarthralgia Frequent nocturnal awakening CLEMENTINE III (cervical intraepithelial neoplasia grade III) with severe dysplasia Hx of cervical cancer Chronic GERD Vitamin D deficiency Chronic pelvic pain in female Mixed stress and urge urinary incontinence Intermittent lightheadedness Surgical menopause Hx LEEP (loop electrosurgical excision procedure), cervix, Surgical History Hx of hysterectomy H/O colonoscopy History of total vaginal hysterectomy (TVH) History of suburethral sling procedure Hx of tubal ligation Family History Father Hx of cancer of lung Mother History of mental problems Hx of bipolar disorder Mental health disorder Arthritis Osteoporosis Maternal Grandmother History of CVA (cerebrovascular accident) Hx of coronary artery disease Arthritis Osteoporosis Fibromyalgia Son Substance use disorder Daughter Mental health disorder Social History Household Members: Spouse Housing: House Alcohol intake: current Alcohol intake frequency: a few times a month Patient Tobacco Use Status: Never used Tobacco e-Cigarette/Vaping Use: Never Used service: No Current occupational status: employed Current occupation: [employer] Sexual orientation: Straight/Heterosexual Gender identity: Female Cognitive needs: No Hearing needs: No Vision needs: No Questionnaire PHQ-9 Over the last 2 weeks, how often have you been bothered by any of the following problems? 1. Little interest or pleasure in doing things: not at all 2. Feeling down, depressed, or hopeless: not at all 3. Trouble falling or staying asleep, or sleeping too much: not at all 4. Feeling tired or having little energy: not at all 5. Poor appetite or overeating: not at all 6. Feeling bad about yourself - or that you are a failure or have let yourself or your family down: not at all 7. Trouble concentrating on things, such as reading the newspaper or watching television: not at all 8. Moving or speaking so slowly that other people could have noticed. Or the opposite - being so fidgety or restless that you have been moving around a lot more than usual: not at all 9. Thoughts that you would be better off or of hurting yourself in some way: not at all Total score: 0 Depression Screening Interpretation: Negative Depression Screening Done: Yes 00406 - PHQ-9 Billing: Yes Source: Developed by Nereyda Leary Kurt Kroenke and colleagues, with an educational terrance from [employer]. Thrive Questionnaire Date Thrive assessed: 09/19/24 I am a: Patient What is your living situation today?: I have a steady place to live Within the past 12 months, did the food you bought not last and you didn't have the money to get more?: Never true Within the past 12 months, did you worry whether your food would run out before you got money to buy more?: Never true Do you have trouble paying for medicines?: No Do you have trouble getting transportation to medical appointments?: No Do you have trouble paying your heating and electricity bill?: No Do you have trouble taking care of your child, family member or friend?: I choose not to answer this question Do you have trouble with day-to-day activities such as bathing, preparing meals, shopping, managing finances, etc.?: Yes Are you currently unemployed and looking for a job?: I choose not to answer this question Are you interested in more education?: No Please select the resources that you would like help with: None THRIVE Score: 0 AUDIT C Alcohol Use Questionnaire (AUDIT-C) 1. How often do you have a drink containing alcohol?: Never Total Score: 0 APRIL-7 AMB Questionnaire APRIL-7 Date APRIL - 7 assessed: 09/19/24 Feeling nervous, anxious, or on edge: 1 = Several days Not being able to stop or control worryin = Not at all Worrying too much about different things: 0 = Not at all Trouble relaxin = Not at all Being so restless that it is hard to sit still: 1 = Several days Becoming easily annoyed or irritable: 0 = Not at all Feeling afraid as if something awful might happen: 0 = Not at all Total APRIL-7 score (0-4 normal; 5-9 mild; 10-14 moderate; 15-21 severe): 2 Source: Developed by Nereyad Leary Kurt Kroenke and colleagues, with an educational terrance from [employer]. APRIL-7 Assessment Billing APRIL-7 Assessment Tool: APRIL-7 Assessment 72180 Review of Systems Const Denies fever(s), Denies headache(s) and Denies weakness Eyes Reports no additional complaints ENT Denies dysphagia, Denies dizziness, Denies headache(s), Denies nasal congestion and Denies sore throat Card Denies chest pain, Denies lightheadedness and Denies dyspnea Resp Denies chest congestion, Denies cough and Denies dyspnea GI Denies abdominal pain, Denies change in bowel habits, Denies dysphagia and Denies heartburn Denies urinary frequency, Denies dyspareunia, Denies dysuria, Reports urinary incontinence and Reports urinary urgency Musc Reports arthralgias and Reports stiffness Neuro Denies dizziness, Denies headache(s), Denies seizure-like activity and Denies weakness Psych Reports as per HPI Endo Reports no additional complaints Dom/Lymph Reports no additional complaints Aller/Immun Reports no additional complaints Physical exam (Primary Care) Tobacco/Smoking Status: Tobacco use Status Tobacco use date assessed 09/19/24 09/19/24 08:04 Patient Tobacco Use Status Never used Tobacco 09/19/24 08:04 e-Cigarette/Vaping Use Never Used 09/19/24 08:04 PHQ-9: PHQ-9 Score PHQ-9: Total score 0 09/19/24 08:05 Depression Screening Interpretation: Negative Thrive Assessment: Date of Thrive Assessment Date Thrive assessed 09/19/24 09/19/24 08:05 Telehealth Telehealth Telehealth Platform: [facility] Location of provider rendering services: practice address Location of patient: address on file Patient Identification confirmed using: Name, : Yes Telehealth method: video Patient verbally consented to treatment: Yes Patient verbally consented to billing insurance company: Yes Patient informed of any privacy concerns related to visit: Yes Minutes spent on Phone/Video with Pt.: 15 Coding Level of Care Code Tele Est Pt Level 3 (03018) Diagnoses Depression with anxiety F41.8 Hx of adenomatous polyp of colon Z86.0101 Additional Codes PHQ-9 - 76464 - PHQ-9 Billing: Yes ([id number]) APRIL-7 Assessment Billing - APRIL-7 Assessment Tool: APRIL-7 Assessment 82431 ([id number]) Assessment & Plan Assessment & Plan (1) Depression with anxiety: Code(s): F41.8 - Other specified anxiety disorders Category: Medical Plan: Advised to continue with duloxetine 60 mg daily, take it in the morning instead of night. Advised to start tapering off gabapentin , as it has not really helped with controlling her insomnia. Advised to let her neurologist know that it has not been helping and see if they can put her on something else. Patient was advised to call us back if no improvement of symptoms still after 4 weeks. (2) Hx of adenomatous polyp of colon: Comment: 2021 scope= TA x2 1 greater than 10 mm repeat 3 years Code(s): Z86.0101 - Personal history of adenomatous and serrated colon polyps Category: Medical Plan: She is now due for a repeat colonoscopy due to history of adenomatous polyps on previous exam done in 2021. Advised to contact Dr. Tello office to schedule it for this year
== END 2024-09-19 10:16 | disposition home or self-care (01) ==
LOC: HO.HMCC 08:05
PROVIDERS: PCP Internal Medicine; Visit Provider Internal Medicine
DX: F41.8 Other specified anxiety disorders (principal); Z86.0101 Personal history of adenomatous and serrated colon polyps

== ENCOUNTER → 2024-09-19 08:05 | Outpatient (BNVA) | payer OTHER, SELFPAY | PROVIDERS: PCP Internal Medicine; Visit Provider Internal Medicine | DX: F41.8 Other specified anxiety disorders (principal); Z86.0101 Personal history of adenomatous and serrated colon polyps; Z79.899 Other long term (current) drug therapy | CPT/HCPCS: 96127 ==

== ENCOUNTER 2024-10-22 08:14 | Outpatient (AMB) | payer OTHER, SELFPAY ==
[2024-10-22 08:26] VITALS: BP 142/82; PULSE 92; RESP 16; TEMP 36.8; O2SAT 98; BMI 30.7
--- NOTE | 2024-10-22 08:26 | AM.OFFWIN_ITS ---
Intake Vital Signs 10/22/24 08:26 Height 5 ft 7 in Weight 196 lb BMI 30.7 BP 142/82 H Blood Pressure Location Lt brachial Position Sitting Respiration 16 Pulse 92 Pulse Source Pulse Oximeter Temp 98.2 F Temp Source Oral Pulse Oximetry (%) 98 Oxygen Delivery Method Room Air Intake Visit Reasons: EP Sore throat, ear pain Intake Note: Pt is here today c/o sorethroat and Patient Tobacco Use Status: Never used Tobacco Allergies morphine Adverse Reaction (Unknown, Verified 10/22/24 08:29) Itching prednisone Adverse Reaction (Unknown, Uncoded 10/22/24 08:29) leg paralysis, and unable to walk HPI HPI Comments History of Present Illness Details She presents to office with bilateral ear pain and ST Ongoing x 6 days + post nasal drip She was in hospital with family member so + exposures to unknown illness No fever or chills She has not tried medicine for symptoms ST worse with swallowing Pain level is 7/10 + cough with post nasal drip She said also she has some swelling in lower legs; ongoing since Went to [place] on Sunday but swelling present prior to trip Noticed worse after walking on feet for a while Better with rest and elevation Better today Not bad now; no associated pain but sometimes has it in anterior [place] and lower ankles L leg tends to get more swollen than R. Has had in past but noticed worse as of last week She denies new medications No hx of blood clots; control use Denies CP or SOB No palpitations No leg redness/skin color changes or warmth per pt PFSH Medical History Dyslipidemia Hx of adenomatous polyp of colon Family history of colon cancer Depression with anxiety Anemia Polyarthralgia Frequent nocturnal awakening CLEMENTINE III (cervical intraepithelial neoplasia grade III) with severe dysplasia Hx of cervical cancer Chronic GERD Vitamin D deficiency Chronic pelvic pain in female Mixed stress and urge urinary incontinence Intermittent lightheadedness Surgical menopause Hx LEEP (loop electrosurgical excision procedure), cervix, Surgical History Hx of hysterectomy H/O colonoscopy History of total vaginal hysterectomy (TVH) History of suburethral sling procedure Hx of tubal ligation Family History Father Hx of cancer of lung Mother History of mental problems Hx of bipolar disorder Mental health disorder Arthritis Osteoporosis Maternal Grandmother History of CVA (cerebrovascular accident) Hx of coronary artery disease Arthritis Osteoporosis Fibromyalgia Son Substance use disorder Daughter Mental health disorder Social History Household Members: Spouse Housing: House Alcohol intake: current Alcohol intake frequency: a few times a month Patient Tobacco Use Status: Never used Tobacco e-Cigarette/Vaping Use: Never Used service: No Current occupational status: employed Current occupation: [employer] Sexual orientation: Straight/Heterosexual Gender identity: Female Cognitive needs: No Hearing needs: No Vision needs: No Review of Systems Const Denies chills and Denies fever(s) Eyes Denies change in vision ENT Denies dizziness, Reports otalgia, Reports nasal congestion, Denies sinus pressure and Reports sore throat Card Denies chest pain, Denies syncope, Reports leg edema and Denies dyspnea Resp Denies change in phlegm color, Denies chest congestion, Reports cough, Denies hemoptysis and Denies dyspnea GI Denies abdominal pain Musc Denies myalgias Skin/Breast Denies rash Neuro Denies dizziness and Denies syncope Physical Exam Vital Signs: Last Vital Signs Temp 98.2 F 10/22/24 08:26 Pulse 92 10/22/24 08:26 Resp 16 10/22/24 08:26 BP 142/82 H 10/22/24 08:26 Pulse Ox 98 10/22/24 08:26 Oxygen Delivery Method Room Air 10/22/24 08:26 BMI result Body Mass Index 30.7 General: Non-toxic, NAD. Speaking full sentences. Skin: Warm dry throughout. Legs symmetrical in size and shape bilaterally. No lower extremity erythema or warmth noted. There is trace pitting edema over bilateral anterior ankles. None to proximal/mid tibia or posterior calf. No ttp along deep venous system bilaterally Eye: EOMI HENT: Airway patent. Uvula midline. No pharyngeal erythema or edema. No GETTERING OPERATOR. Bilateral canals clear. Scarring nored to bilateral TMs. R TM + erythema without perforation. L TM non-erythematous, non-bulging. No TM hemotympanum noted bilaterally. Respiratory: CTA bilaterally. No wheezes, rales or rhonchi Cardiac: RRR. No murmur. DP pulse intact LLE MSK: Full ROM lower extremities without bony ttp appreciated Neurology: Alert. No aphasia or facial droop. Gait without abnormality Psych: Good mood and affect Results AMB Rapid Strep AMB Rapid Strep Negative Last Edit by Jazlyn Chávez CMA on 10/22/24 08:42 Results Reviewed Results Reviewed: Laboratory Last Values Strep Scn Rapid Clinic Negative 10/22/24 08:32 Assessment & Plan Assessment & Plan (1) Leg edema: Code(s): R60.0 - Localized edema Plan: Patient seen and evaluated. Discussed checking baseline labs due to ? med side effect; she said she has had a gradual increase in gabapentin dose and unsure if due to that She has no ttp along deep venous system and LLE symmetrical to R. discussed with pt that we can not rule out DVT in office and she is aware this can lead to sudden . Offered US of lower extremity but pt wants to monitor for symptoms as although she did have recet travel to [place] via plane, she had symptoms prior to and is without calf pain, localized or circumfrential edema or redness. HR wnl and no CP or SOB. We discussed in depth the warning signs to monitor for that would warrant immediate eval. WIll send PCP a message to follow up in regards to leg edema We discussed leg elevation and rest after standing long periods Patient gave verbal understanding and had no additional questions or concerns at time of discharge All questions answered (2) Otitis media: Code(s): H66.90 - Otitis media, unspecified, unspecified ear Qualifiers: Otitis media type: other nonsuppurative Chronicity: acute Laterality: right Recurrence: non-recurrent Qualified Code(s): H65.191 - Other acute nonsuppurative otitis media, right ear Plan: amoxicillin for symptoms Call with concerns Orders: Orders AMB Rapid Strep Screen Today Melanie Mora PA-C Z13.9 - Encounter for screening, unspecified Complete Blood Count Auto Diff Today Liane Frankel PA-C R60.0 - Localized edema Basic Metabolic Panel Today Liane Frankel PA-C R60.0 - Localized edema Liver Panel Today Liane Frankel PA-C R60.0 - Localized edema Medications: New amoxicillin 875 mg PO BID 14 tabs 0RF Liane Frankel, PA-C Coding Level of Care Code Est Pt Level 3 (80215) Diagnoses Leg edema R60.0 Other non-recurrent acute nonsuppurative otitis media of right ear H65.191 Otitis media type: other nonsuppurative Chronicity: acute Laterality: right Recurrence: non-recurrent
--- OUTSIDE RECORDS SUMMARY | 2024-10-22 08:34 | XMS_ITS ---
Author Organization [facility] Address [address] [place] [address] Care Team Providers Care Systems Integration Advisor Name Role Phone Santiago TENORIO, Celsa Hanson Primary Care Provider Un available Zhao Benitez Unavailable [phone] Mnoa Romano Unavailable [phone] REASON FOR VISIT r/s for sooner apt Encounters Encounter Location Date Provider Diagnosis [facility] [address] [place] [address] 09/12/2023 Mona Romano Plan Of Treatment No Information Progress Notes * Laura SKY LDOB:1975 (49 yo F)Acc No.[id number]:09/12/2023 Progress Notes Patient:?ASYA Laura Connelly Provider:?Mona Romano DPM :1975???Age:47 Y???Sex:Female D ate:09/12/2023 Address:[address] [place] Pcp:Teo Marinelli Subjective: * Chief Complaints: * ???1. R/s for sooner apt. * Medical History:? Objective: * Vitals:? Assessment: Plan: * Treatment: * Images: * The named appointment provid er may or may not be the originator of this progress note, and it is not deemed complete until electronically signed by the appointment provider. Sign off status: Pending * Provider:?Mona Romano DPM Date:? Generated for Gary lopez/Maia/Zoayitting on:?10/22/2024 08:33 AM EST
--- OUTSIDE RECORDS SUMMARY | 2024-10-22 08:34 | XMS_ITS | Patient Health Record ---
Author [facility] Address [address] [facility] [place] [address] Care Team Providers Care Reduction Furnace Operator Helper Name Role Phone Santiago TENORIO, Celsa Hanson Primary Care Provider Un available Zhao Benitez Unavailable [phone] Allergies Allergen (clinical drug ingredient) Drug/Non Drug Allergy documented on EMR Reaction Allergy Type Onset Date Status morphine Morphine itchy Drug Allergy Active prednisone Prednisone paralysis Drug Allergy Activ e Reason For Referral No Information Medications Medication SIG (Take, Route, Fr equency, Duration) Notes Start Date End Date Status PriLOSEC OTC 20 MG 1 tablet 30 minutes before morning meal Orally Once a day for 30 day(s) Active Social History Tobacco Use: Social History Observation Description Date Details (start date - stop date) Never Smoker NA - NA Tobacco Use/Smoking Question Answer Notes Are you a: nonsmoker Additional Findings: Tobacco Non-User Current no n-smoker Alcohol Screen Question Answer Notes Did you have a drink contain ing alcohol in the past year? Yes How often did you have a dri nk containing alcohol in the past year? Monthly or less (1 point) Points 1 Interpretation Negative Tobacco use other than smoking: Question Answer Notes Are you an other tobacco user? No Problems Problem Type SNOMED Code ICD Code Onset Dates Problem Status W/U Status Risk Notes Problem [id number] 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 Plan Of Treatment No Information Insurance Providers Payer Name Payer Address Payer Phone Subscriber Number Group Number Insured Name Patient Relationship to Insured Coverage Start Date Coverage End Date [employer] [address] [place], [place] [address] [phone] [id number] Laura Person Self - patient is the insured Medical (General) History Medical History History ICD Code Anemia Anxiety Back,Hip,and Knee pain Cancer covid-19 Diverticulosis Headaches/Migraines Reflux ( GERD) Sciatica Warts Chicken pox Surgical History Surgery Date(Month/Year) leep procedure 08/2003 tubal 06/04/2012 [facility] 09/[facility]/2013 sling reversal 11/30/2015 tut sling 02/17/2019
--- OUTSIDE RECORDS SUMMARY | 2024-10-22 08:34 | XMS_ITS ---
Author Organization [facility] Address [address] [place] [address] Care Team Providers Care Finish Repair Worker Name Role Phone Santiago TENORIO, Celsa Hanson Primary Care Provider Un available Zhao Benitez Unavailable [phone] REASON FOR VISIT Purchased Gel Tube Encounters Encounter Location Date Provider Diagnosis [facility] [address] [place] [address] 07/24/2023 Zhao Benitez Plan Of Treatment No Information Progress Notes * Laura SKY LDOB:1975 (47 yo F)Acc No.[id number]:07/24/2023 Patient:?Laura Sky :1975???Age:47 Y???Sex:Female Address:[address] , [place], [address] * true * Date:? Generated for Adriani jessica/Maia/eTransmitting on:?10/22/2024 08:34 AM EST
--- OUTSIDE RECORDS SUMMARY | 2024-10-22 08:34 | XMS_ITS | Continuity of Care Document ---
Author Organization [facility] Address [address] [place] [address] Care Team Providers Care Polymer Materials Consultant Name Role Phone Santiago TENORIO, Celsa Mae Primary Care Physician [place] [facility] [place]19[place]24 - 10/19/24 [facility] [address] [place] [id number] Encounter Type: Triage Allergies, Adverse Reactions, Alerts Substance Criticality Severity Reaction Reaction Severity Status predniSONE paralysis of legs A ctive Medications duloxetine 60 mg oral enteric coated capsule 1 capsule = 60 mg, By Mouth, Daily at bedtime, do not crush or chew, Maintenance, 07/18/24 7:31:00 AM EST, CR Capsule Start Date: 07/18/24 Status: Ordered Repeat number: 1 gabapentin 100 mg oral capsule 300 mg, 3, capsule, By Mouth, Daily at bedtime, Maintenance, 07/18/24 7:31:00 AM EST, Partial fill upon patient request if the prescription is for a schedule II opioid drug. Start Date: 07/18/24 Status: Ordered Repeat number: 1 ibuprofen 600 mg oral tablet 600 mg, 1, tablet, By Mouth, Every 6 hours, # 40 tablet, Refills 0, Tot. Refills 0, Maintenance, 02/17/19 1:44:14 PM EDT, Route to Pharmacy Electronically, [facility]/pharmacy #[id number] Start Date: 02/17/19 Status: Ordered Quantity: 40.0 Unit: tablet Repeat number: 1 Omeprazole = 20 mg, By Mouth, PRN Dyspepsia, 0 Refills, Maintenance, 04/23/12 8:17:46 AM EDT Start Date: 04/23/12 Status: Ordered Repeat number: 1 Problem List Condition Confirmation Course Effective Dates Status Health St atus Informant Reflux Confirmed Active Social History Social History Type Response Smoking Status Never (less than 100 in lifetime) entered on: 10/28/18 Sex Sex Representation Female (finding) Patient Care team information Care Team Personnel Name: Santiago TENORIO , Celsa Mae Position: Reference Physician Member Role: PCP Address: [address] [place] [address] Telecom: Care Team Related Persons Name: LIYA SUE Name: DESTINEE BURT Name: ASHWINI SKY Insurance Providers Guarantor name: SAI SKY Health Plan Information #: 1 Payer: [facility] Member Number: NA Policy Number: NA Group Number: NA
--- OUTSIDE RECORDS SUMMARY | 2024-10-22 08:34 | XMS_ITS | Clinical Summary ---
Author Organization [facility] Address [address] [place] [phone] Phone Care Team Providers Care Alley Cleaner Name Role Phone Unavailable Primary Care Provider Unavailabl e Social History Tobacco Use Types Packs/Day Years Used Date Smoking Tobacco: Never Assessed Comments Unknown Sex and Gender Information Value Date Recorded Sex Assigned at Not on file Legal Sex Female 1:17 PM EST Gender Identity Not on file Sexual Orientation Not on file Plan of Treatment Upcoming Encounters Date Type Department Care Team (Late st Contact Info) Description 11/12/2024 7:15 AM EDT [facility]ointment [facility] at [address] [phone] Health Maintenance Due Date Last Done Comments Breast Cancer Screening 1973 DTaP,Tdap,and Td Vaccines (1 - Tdap) 1992 Hepatitis B Vaccines (1 of 3 - 19+ 3-dose series) 1992 Cervical Cancer Screening: P ap Smear 1994 Pneumococcal Vaccine: 50+ Ye ars (1 of 1 - PCV) 2023 Zoster Vaccines (1 of 2) 2023 COVID-19 Vaccine ( - 2023-2 5 season) 2024 Influenza Vaccine (#1) 2024 Colorectal Cancer Screening: Colonoscopy 09/03/2024 Depression Screening 09/03/2024 HIV Screening 09/03/2024 Hepatitis C Screening 09/03/2024 Social Influencers of Health Screening 09/03/2024 HIB Vaccines Aged Out No longer eligi ble based on patient's age to complete this topic HPV Vaccines Aged Out No longer eligi ble based on patient's age to complete this topic Hepatitis A Vaccines Aged Out No long er eligible based on patient's age to complete this topic IPV Vaccines Aged Out No longer eligi ble based on patient's age to complete this topic MMR Vaccines Aged Out No longer eligi ble based on patient's age to complete this topic Meningococcal ACWY Vaccine Aged Out N o longer eligible based on patient's age to complete this topic Meningococcal B Vacine Aged Out No lo nger eligible based on patient's age to complete this topic Pneumococcal Vaccine: Pediat rics (0 to 5 Years) and At-Risk Patients (6 to 64 Years) Aged Out No longer eligible b ased on patient's age to complete this topic RSV Immunization Patients Un davi 20 months Aged Out No longer eligible b ased on patient's age to complete this topic Varicella Vaccines Aged Out No longer eligible based on patient's age to complete this topic Insurance [employer]
--- OUTSIDE RECORDS SUMMARY | 2024-10-22 08:34 | XMS_ITS ---
Author Organization [facility] Address [address] [place] [address] Care Team Providers Care Water And Gas Helper Name Role Phone Santiago TENORIO, Celsa Hanson Primary Care Provider Un available Zhao Benitez Unavailable [phone] Allergies Allergen (clinical drug ingredient) Drug/Non Drug Allergy documented on EMR Reaction Allergy Type Onset Date Status morphine Morphine itchy Drug Allergy Active prednisone Prednisone paralysis Drug Allergy Activ e REASON FOR VISIT Fungal Nails Medications Medication SIG (Take, Route, Fr equency, [...] Problem Status W/U Status Risk Notes Problem [id number] 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 Vital Signs Height 5 ft 7 in in 07/24/2023 Weight 189 lbs 07/24/2023 BMI 29.60 kg/m2 07/24/2023 Encounters Encounter Location Date Provider Diagnosis [facility] [address] [place] [address] 07/24/2023 Zhao Benitez Fungal infection of nail B35.1 ; Pain in right toe(s) M79.674 and Pain in left toe(s) M79.675 Assessments Encounter Date Diagnosis (ICD Code) Assessment Notes Treatment Notes Treatment Clinical Notes Section Notes 07/24/2023 Fungal infection of nail (ICD-10 - B35.1) 07/24/2023 Pain in right toe(s) (ICD-10 - M79.674) 07/24/2023 Pain in left toe(s) (ICD-10 - M79.675) Plan Of Treatment Next Appt Details Follow Up: prn, Reason: Progress Notes * Laura SKY LDOB:1975 (47 yo F)Acc No.[id number]:07/24/2023 Progress Notes Patient:?Laura Sky Provider:?Zhao Benitez DPM :1975???Age:47 Y???Sex:Female D ate:07/24/2023 Address:[address] [place], [place] [id number] Pcp:Teo Marinelli Subjective: * Chief Complaints: * ???Fungal Nails * HPI: ???Painful Nails:?Nature:?aching, tender, discolored, thick.?Location:?Great toe , 2nd toe, 4th toe , 5th toe , Left foot , Great toe , 5th toe , Right foot.?Duration:?several months.?Course:?worse.?Aggrevated by:?shoegear causing difficulty standing/walking.?Treatments:?none.? * ROS:?General/Constitutional:?Nausea?denies.?Vomiting?denies.?Hunger Thirst?denies.?Loss appetite?denies.?Chills?denies.?Fatigue?admits.?Fever?denies.?Night Sweats?admits.?Unexplained weight loss?denies.?Unexplained weight gain?denies.?HEENTM:?Dentures?denies.?Dizziness?denies.?Glasses/contacts?admits.?Retinopathy?de nies.?Blurred/double vision?denies.?TMJ?denies.?Discharge/drainage?denies.?Implants?denies.?Sore throat?denies.?Dental implants?denies.?Hard of hearing ?denies.?Difficulty chewing/swallowing/speaking?denies.?Nose bleeds?denies.?Sore mouth?denies.?Respiratory:?On Oxygen?denies.?Pneumonia/pleurisy?denies.?Bronchitis?denies.?Emphysema?denies.?C oughing?denies.?Cough blood?denies.?Shortness of breath?denies.?Wheezing?denies.?Cardiovascular:?Pacemaker?denies.?MVP?denies.?WPW?denies.?CHF?denies.?Heart attack?denies.?Septal defect?denies.?Rapid beat?denies.?Chest pain ?denies.?Atrial Fib.?denies.?Murmur/Palpitations?admits.?Gastrointestinal:?Hemorrhoids?denies.?Stomach/Abdominal pain?denies.?Dark blood stool?denies.?Irritable bowel ?denies.?Constipation?denies.?Diarrhea?denies.?Hematology:?Swelling?denies.?Clots?denies.?Varicose Veins?denies.?Bruising?denies.?Bleeding problem?denies.?Genitourinary:?Blood urine?denies.?Frequent/Painfu/urination/bladder control?admits.?Kidney stones?denies.?Infection (UTI)?denies.?Nephropathy?denies.?sex trans dis (STD)?denies.?Prostate?denies.?Musculoskeletal:?Hammertoes?denies.?Bunions?denies.?Back Pain?admits.?Muscle Cramps/ Resting?denies.?Muscle cramps / walking?denies.?Generalized aches and pains?admits.?Weakness?denies.?Integ.:?Posey?denies.?Scars?admits.?Corns/calluses?denies.?Ingrown nails?denies.?Painful nails?admits.?Open Sores?denies.?Rashes?denies.?Neurologic:?Difficulty sleeping?admits.?Brain disorder?denies.?Numbness?admits.?Balance trouble?denies.?Confusion?denies.?Fainting/blackouts?denies.?Tingling?admits.?Tr emors?denies.? * Medical History:? * Surgical History:?leemani proce dure 08/2003tubal 06/04/2012hysterectomy 09/29/2013Monarc mount sling 09/29/2013sling reversal 11/30/2015tut sling 02/17/2019 * Hospitalization/Major Diagno stic Procedure:?Denies Past Hospitalization * Family History:?Mother: aliv e, kidney/liver Disease, heart attack, poor circulation, diagnosed with Unspecified essential hypertension, Unspecified heart disease, Other specified conditions influencing health status.?Father: , Cancer, diagnosed with Other malignant neoplasm of unspecified site.?Maternal Grand Father: Stroke, diagnosed with Unspecified heart disease.?Siblings: Sister - Scleroderma, diagnosed with Other specified conditions influencing health status.?Paternal Grand Mother: diagnosed with Unspecified essential hypertension, Other specified conditions influencing health status.?Maternal Grand Mother: diagnosed with Family history of arthritis, Unspecified essential hypertension, Other specified conditions influencing health status.?Paternal aunt: diagnosed with Unspecified heart disease.?Maternal aunt: diagnosed with Diabetic - NIDDM, Unspecified heart disease, Other malignant neoplasm of unspecified site, Other specified conditions influencing health status.? * Social History:?Tobacco Use:?Tobacco Use/Smoking?Are you a:?nonsmoker ?Additional Findings: Tobacco Non-User?Current non-smoker ?Tobacco use other than smoking?Are you an other tobacco user??No ???Drugs/Alcohol:?Drugs?Have you used drugs other than those for medical reasons in the past 12 months??No ?Alcohol Screen?Did you have a drink containing alcohol in the past year??Yes ?How often did you have a drink containing alcohol in the past year??Monthly or less (1 point) ?Points?1 ?Interpretation?Negative ???Miscellaneous:?Caffeine: yes, frequency:, 1-2 cups per day. ?Children: yes, 2. ?Marital status: . 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 * Medications:?TakingPriLOSEC OTC 20 MG Tablet Delayed Release 1 tablet 30 minutes before morning meal Orally Once a dayTaking PriLOSEC OTC 20 MG Tablet Delayed Release 1 tablet 30 minutes before morning meal Orally Once a day * Allergies:?Prednisone: paral ysisMorphine: itchy yes[Allergies Verified] Objective: * Vitals:?Ht: 5 ft 7 in, Wt:18 9, BMI:29.60, Shoe size:7.5. * Examination: ???Nails: ?NAILS are:?Elongated, overgrown, dystrophic, lytic, greater than 3mm thick, discolored and friable with crumbly malodorous subungual debris, with pain on palpation , TA , T1 , T3 , T4 , T5 , T9.?General Examination: ?GENERAL APPEARANCE:?Reveals a pleasant, alert, well-nourished, well- developed, well hydrated individual, who demonstrates proper attention to hygiene/body habitus, and is in no acute distress, Pt serves as own?historian for office visit today.?ORIENTED:?person, place, and time.?Neurological: ?SENSORY:?Neurological exam reveals intact sensorium, pain sensation normal, vibration sensation intact, pinprick sensation is normal in the lower extremities, Pt denies, anesthesia, burning, paresthesia, tingling, B/L.?DEEP TENDON REFLEXES:?Achilles, 2/4, B/L.?Vascular: ?DP PULSES:?3/4, B/L.?PT PULSES:?3/4, B/L.?CAPILLARY FILL TIME:?immediate, all digits, B/L.?SKIN TEMPERTURE GRADIENT OF THE LOWER EXTERMITIES:?warm to cool, proximal to distal, B/L.?HAIR GROWTH/TEXTURE/ELASTICITY/TURGOR:?normal, B/L.?PIGMENTATION:?normal, B/L.?EDEMA:?absent, B/L.?Dermatologic: ?SKIN FINDINGS:?Skin exam reveals normal texture, elasticity, and turgor. There are no masses. The interspaces are clear.?Orthopedic: ?MUSCLE STRENGTH:?5/5 all groups in a symmetrical fashion , B/L.? Assessment: * Assessment: 1.?Pain in right toe(s) - M7 9.674?2.?Fungal infection of nail - B35.1, Acute problem, Uncomplicated (3)?3.?Pain in left toe(s) - M79.675? Plan: * Treatment: * Procedure Codes:? * Preventive Medicine:? ??Counseling:?Discussion:?-03: Office or other outpatient visit for the evaluation and management of a new patient, which required a medically appropriate history and/or examination and LOW level of DECISION MAKING for: 1 STABLE ACUTE UNCOMPLICATED PROBLEM, 2 OR MORE MINOR PROBLEMS, OR 1 STABLE CHRONIC PROBLEM, THAT POSE(S) A LOW RISK FOR MORBIDITY/MORTALITY. The visit on the day of the encounter encompassed interpreting the data and educating the patient as to the nature of their condition, treatment options available according to their individual PMH, meds, allergies, and overall health/living conditions, as well as any potential risks or complications that may occur from a failure to adhere to, and participate in, the recommended course of therapy. The discussion included a complete verbal, and/or written explanation of the examination results, any x-rays taken, the proposed diagnosis, and outline of the treatment plan. A schedule for future care needs was also explained. The patient verbalized an understanding of the instructions at this time and agreed to be an active participant in their treatment. If the patient should think of any questions or concerns after the visit, I have encouraged the patient to call the office.?Fungal Nail Counseling:?The patient was counseled on the diagnosis, potential etiologies (including, but not limited to, environmental factors, genetic, immune deficiency), and the multiple treatment options for Onychomycosis. We discussed the risks and benefits of each option from performing no treatment, to ultraviolet light shoe treatment, to laser nail treatment, to applying topical antifungals, to taking oral antifungal medication, to surgical removal of the involved nail(s) with or without performing a matricectomy, or any combination thereof. We discussed the advantages and disadvantages of each of possible treatment and importance for adherence to all the recommended therapies for optimum success. This includes the necessity for weekly emery board self nail home debridements, and control the nail and skin environment as much as possible by only using a fresh, dry pair of shoes/socks each day, as well as keeping the skin as dry as possible through the use of sprays/powders if necessary. The patient was instructed to discard the emery board after use to prevent reinfection of the involved nail(s). We discussed the mycological and visual clinical effectiveness of topical vs oral antifungal treatments as well as each ones potential side effects and/or any patient- specific medication interactions. We discussed the reasons behind the important requirement of regular liver function testing with oral antifungal therapy for safety. Patient questions regarding use, dosage, successful outcomes, blood tests, and possible pharmaceutical interactions were reviewed and the patient verbalized that all answers were clearly understood.? * Follow Up:?prn * Images: * Sign off status: Completed true * Provider:?Zhao Benitez DPM Date:?2022 Generated for Gary lopez/Maia/Price on:?10/22/2024 08:34 AM EST History and Physical Notes * HPI (History of Present Illness) Category Sub-Category Detail Notes Category Not es Painful Nails Aggravated by: shoegear causing difficulty standing/walking Course: worse Duration: several months Location: Great toe , 2nd toe, 4th toe , 5th toe , Left foot , Great toe , 5th toe , Right foot Nature: aching, tender, disc olored, thick Treatments: none Examination Category Sub-Category Detail Notes Category Not es Neurological SENSORY: Neurological exa m reveals intact sensorium, pain sensation normal, vibration sensation intact, pinprick sensation is normal in the lower extremities, Pt denies, anesthesia, burning, paresthesia, tingling, B/L DEEP TENDON REFLEXES: Achilles, 2/4, B/L Dermatologic SKIN FINDINGS: Skin exam reveal s normal texture, elasticity, and turgor. There are no masses. The interspaces are clear Orthopedic MUSCLE STRENGTH: 5/5 all groups in a symm etrical fashion , B/L General Examination GENERAL APPEARANCE: Reveals a pleasant, alert, well- nourished, well-developed, well hydrated individual, who demonstrates proper attention to hygiene/body habitus, and is in no acute distress, Pt serves as own historian for office visit today ORIENTED: person, place, and t ree Vascular DP PULSES (B): 3/4, B/L PT PULSES (B): 3/4, B/L CAPILLARY FILL TIME: immediate, all digi ts, B/L TEMPERTURE GRADIENT (C): warm to cool, p roximal to distal, B/L TROPHIC CONDITION-TEXTURE/ELASTICITY/TURGOR/HAIR GROWTH (B): normal, B/L EDEMA (C): absent, B/L PIGMENTATION: normal, B/L Nails NAILS are: Elongated, overg rown, dystrophic, lytic, greater than 3mm thick, discolored and friable with crumbly malodorous subungual debris, with pain on palpation , TA , T1 , T3 , T4 , T5 , T9
== END 2024-10-22 08:44 | disposition home or self-care (01) ==
PROVIDERS: PCP Internal Medicine; Visit Provider Physician Assistant
DX: R60.0 Localized edema (principal); H65.191 Other acute nonsuppurative otitis media, right ear; Z13.9 Encounter for screening, unspecified

== ENCOUNTER 2024-10-22 08:14 | Outpatient (REF) | payer OTHER, SELFPAY ==
--- OUTSIDE RECORDS SUMMARY | 2024-10-22 09:28 | XMS_ITS | Clinical Summary ---
Author Organization [facility] Address [address] [place] [phone] Phone Care Team Providers Care Windows Laptop Technician Name Role Phone Unavailable Primary Care Provider [...] AM EDT [facility]ointment [facility] at [address] [phone] Health Maintenance Due Date Last [...]
[2024-10-22 09:51] LABS: MANUAL DIFF FLAG NO
[2024-10-22 09:56] LABS: Basophils Absolute Auto 0.1 X10*3/uL (0.0-0.2); Basophils Percent Auto 0.5 % (0-2); Eosinophils Absolute Auto 0.2 X10*3/uL (0.0-0.4); Eosinophils Percent Auto 2.5 % (0-4); Hematocrit 37.9 % (37.0-47.0); Hemoglobin 12.4 g/dl (12.0-16.0); Imm Gran Abs Auto 0.07 X10*3/uL (0.00-0.03); Imm Gran Pct Auto 0.7 % (0.0-0.4); Lymphocytes Absolute Auto 1.8 X10*3/uL (1.2-4.9); Lymphocytes Percent Auto 18.4 % (20-40); Mean Corpuscular HGB Conc 32.7 g/dl (31.0-35.0); Mean Corpuscular Hemoglobin 29.2 pg (27.0-33.0); Mean Corpuscular Volume 89.4 fL (80.0-98.0); Mean Platelet Volume 9.3 fL (9.4-12.3); Monocytes Absolute Auto 0.5 X10*3/uL (0.1-1.2); Monocytes Percent Auto 5.4 % (2-11); Neutrophils Absolute Auto 6.9 x10*3/uL (2.0-8.3); Neutrophils Percent Auto 72.5 % (45-73); Platelet Count 221 X10*3/uL (160-400); Red Blood Count 4.24 X10*6/uL (4.20-5.50); Red Cell Distribution Width 14.1 % (11.0-16.0); White Blood Count 9.5 X10*3/uL (4.8-10.8)
[2024-10-22 10:33] LABS: Alanine Aminotransferase 20 U/L (0-31); Albumin Level 3.9 g/dL (3.5-5.0); Alkaline Phosphatase 89 U/L (39-117); Anion Gap 12 (12-20); Aspartate Amino Transferase 20 U/L (5-31); Bilirubin Direct 0.2 mg/dL (0.0-0.5); Bilirubin Total 0.6 mg/dL (0.0-1.0); Blood Urea Nitrogen 14 mg/dL (9-16); Calcium 8.8 mg/dL (8.4-10.2); Carbon Dioxide 26 mmol/L (22-29); Chloride 106 mmol/L (96-108); Estimated Glomerular Filt Rate > 60; Glucose Random 106 mg/dL (60-115); Potassium 3.9 mmol/L (3.3-5.1); Sodium 140 mmol/L (135-145); Total Protein 7.1 g/dL (6.5-8.0)
== END 2024-10-22 08:15 | disposition home or self-care (01) ==
LOC: HO.HMGCLDS 08:14
PROVIDERS: PCP Internal Medicine; Visit Provider Physician Assistant
DX: R60.0 Localized edema (principal)
CPT/HCPCS: 36415; 80048; 80076; 85025; 87880

== ENCOUNTER 2024-11-21 09:10 | Outpatient (AMB) | payer OTHER, SELFPAY ==
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
[2024-11-21 09:19] VITALS: BP 167/78; PULSE 87; O2SAT 99; BMI 30.1
== END 2024-11-21 10:06 | disposition home or self-care (01) ==
LOC: HO.PMC 09:11
PROVIDERS: PCP Internal Medicine; Referring Provider Internal Medicine; Visit Provider Registered Nurse Emergency
DX: M53.3 Sacrococcygeal disorders, not elsewhere classified (principal); M54.16 Radiculopathy, lumbar region
CPT/HCPCS: 99204

== ENCOUNTER 2024-11-28 10:30 | Outpatient (AMB) | payer OTHER, SELFPAY ==
--- NOTE | 2024-11-28 10:36 | MHC.OFFVIS ---
Vital Signs 11/28/24 10:37 Height 5 ft 7 in Weight 192 lb BMI 30.1 Intake Visit Reasons: Follow up Intake Note: Patient presents follow up Sleep medication. Labs in chart Allergies prednisone Allergy (Unknown, Verified 11/28/24 10:42) paralysis morphine Adverse Reaction (Unknown, Verified 11/28/24 10:42) Itching HPI Comments Details: 49-yr-old female presents for f/u visit of sleep difficulties and muscle cramps. Pt denies any significant interval medical changes. Since the last visit, the Gabapentin 300mg was not effective for sleep, was increased from 300mg to 500mg qhs, but this has not helped her maintain her sleep. Has leg cramps are better, and pt believes these are not driving reason for insomnia. She did switch her duloxetine to the morning, in hopes this would reduce insomnia but has not made a difference. Interval lab workup was within normal limits, though B12 was low normal and follow-up homocystine level was elevated B3. Goes to bed between 9-10pm, falls asleep around 12am, wakes up every couple of hours and may have difficulty falling back asleep, and wakes up between 6-7am. She is prone to ruminating thoughts and mind racing- thinking about what she needs to do. Occasional coffee intake. Occasional exercise owing to back injury and recent back surgery. 05/19/2024, HPI: In-lab sleep study did not show sleep apnea or PLMS. Pt reports she feels like she is in a constant state of brain fog, fatigue, but cannot sleep. Pt goes to bed at 9:30-10pm, and falling asleep around 11pm. And then wakes up every 2 hrs, but then she cannot easily fall back asleep. She then gets up around 4:30-5am. Denies naps. States her mind just races and is thinking about at times irrelevant things. She is prone to watch the clock at night. She is having more foot and [place] leg cramps at night. She is clenching her teeth more, at night but now during the day as well- and this trigger a migraine headaches. Her migraine bilateral temporal pulsation, pressure- like her eyes will pop out a/w photophobia, phonophobia, nausea, activity intolerance. Pt has tried ? triptans in the past- caused facial numbness, throat closing sensation, and sleepiness but was effective. This occurs 1 x/week. Using Excedrin and rest- which takes the edge off. She can be off-balance at times. Her surgeon, Dr Aranza Magallanes urology at [facility], advised her not to try Nortriptyline as they felt the Amitriptyline was going to be better for the nerve pain. They recently increased the dose to 25mg bid. Pt is scheduled for an upcoming bladder sling removal and a fascia replacement. She is not working- has been out since an accident last February. [facility] Medical History SI (sacroiliac) joint dysfunction Dyslipidemia Hx of adenomatous polyp of colon Family history of colon cancer Depression with anxiety Anemia Polyarthralgia Frequent nocturnal awakening CLEMENTINE III (cervical intraepithelial neoplasia grade III) with severe dysplasia Hx of cervical cancer Chronic GERD Vitamin D deficiency Chronic pelvic pain in female Mixed stress and urge urinary incontinence Intermittent lightheadedness Surgical menopause Hx LEEP (loop electrosurgical excision procedure), cervix, Surgical History Hx of hysterectomy H/O colonoscopy History of total vaginal hysterectomy (TVH) History of suburethral sling procedure Hx of tubal ligation Family History Father Hx of cancer of lung Mother History of mental problems Hx of bipolar disorder Mental health disorder Arthritis Osteoporosis Maternal Grandmother History of CVA (cerebrovascular accident) Hx of coronary artery disease Arthritis Osteoporosis Fibromyalgia Son Substance use disorder Daughter Mental health disorder Social History Household Members: Spouse Housing: House Alcohol intake: current Alcohol intake frequency: a few times a month Patient Tobacco Use Status: Never used Tobacco e-Cigarette/Vaping Use: Never Used service: No Current occupational status: employed Current occupation: [employer] Sexual orientation: Straight/Heterosexual Gender identity: Female Cognitive needs: No Hearing needs: No Vision needs: No Physical Exam Vital Signs: BMI result Body Mass Index 30.1 Const General: cooperative and no acute distress Orientation/consciousness: patient oriented x3 Resp Effort & Inspection: normal respiratory effort and able to speak in complete sentences Neuro General: patient oriented x3 Cranial nerves: Yes CN's II-XII intact bilaterally Cognition (Neuro): normal cognition Psych Appearance: grossly normal Mental Status: mental status grossly normal Speech and movement: Normal speech and movement present Affect: normal affect Attitude: cooperative Assessment & Plan Assessment & Plan (1) Insomnia: Code(s): G47.00 - Insomnia, unspecified Category: Medical Qualifiers: Insomnia type: unspecified Qualified Code(s): G47.00 - Insomnia, unspecified (2) Fatigue: Code(s): R53.83 - Other fatigue Category: Medical (3) Leg cramps: Code(s): R25.2 - Cramp and spasm Category: Medical (4) Generalized anxiety disorder: Code(s): F41.1 - Generalized anxiety disorder Category: Medical Plan Previous in-lab sleep study- no evidence of sleep apnea or PLMS. Discussed strategies to optimize sleep hygiene, such as not going bed until sleepy. Also discussed that sleep medication is not long-term solution for insomnia. However we will initiate low-dose trial of zolpidem, in hopes this will allow patient to utilize sleep education resources to her overall sleep quality. Patient is advised to use a CBTi scott and/or to read Say Tyesha to insomnia by Dr. Kraus's. Reviewed labs- B12 low normal, with slightly elevated level we will initiate vitamin B12 daily supplement. Trial low dose zolpidem 5mg qhs- not taken directly w/ amitriptyline or gabapentin. Continue Gabapentin 500mg qhs- for muscle cramps. Continue amitriptyline 25mg daily, advised to take around 20:00. Discontinue Magnesium 400mg qhs- ineffective. Continue OTC mouth guard- until she is able to see her dentist. Pt to follow-up in 6 months or sooner prn. send portal message. [email or web address] Medications: New zolpidem (Ambien) 5 mg PO BEDTIME PRN 30 tabs 1RF insomnia 30 days cyanocobalamin (vitamin B-12) 500 mcg PO DAILY 30 tabs 6RF 30 days Coding Level of Care Code Est Pt Level 4 (40112) Diagnoses Insomnia, unspecified type G47.00 Insomnia type: unspecified Fatigue R53.83 Leg cramps R25.2 Generalized anxiety disorder F41.1
[2024-11-28 10:37] VITALS: BMI 30.1
--- OUTSIDE RECORDS SUMMARY | 2024-11-28 12:00 | XMS_ITS | Patient Health Record ---
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 Plan Of Treatment No Information Insurance Providers Payer Name Payer Address Payer Phone Subscriber Number Group Number Insured Name Patient Relationship to Insured Coverage Start Date Coverage End Date Cigna [address] [place], [place] [address] [id number] Laura Person Self - patient is the insured Medical (General) History Medical History History ICD Code Anemia Anxiety Back,Hip,and Knee pain Cancer covid-19 Diverticulosis Headaches/Migraines Reflux ( GERD) Sciatica Warts Chicken pox Surgical History Surgery Date(Month/Year) leep procedure 08/2003 tubal 06/04/2012 [facility]2013 sl[facility] reversal 11/30/2015 tut sling 02/17/2019
--- OUTSIDE RECORDS SUMMARY | 2024-11-28 12:01 | XMS_ITS ---
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 ?Marital status: . 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 * Medications:?TakingPriLOSEC OTC 20 MG Tablet Delayed [...] * Sign off status: Completed true * Provider:?Zhoa Benitez DPM Date:?2022 Generated for Gary lopez/Maia/Price on:?11/28/2024 12:00 PM EDT History and Physical Notes * HPI (History [...]
--- OUTSIDE RECORDS SUMMARY | 2024-11-28 12:01 | XMS_ITS ---
Author Organization [facility] Address [address] [place] [address] Care Team Providers Care Tourist Cabin Keeper Name Role Phone Santiago TENORIO, Celsa Hanson Primary Care Provider Un available Zhao Benitez Unavailable [phone] REASON FOR VISIT Purchased Gel Tube Encounters Encounter Location Date Provider Diagnosis [facility] [address] [place] [address] 07/24/2023 Zhao Benitez Plan Of Treatment No Information Progress Notes * Laura SKY LDOB:1975 (47 yo F)Acc No.[id number]:07/24/2023 Patient:?Laura Sky :1975???Age:47 Y???Sex:Female Address:[address] , [place], [address] * true * Date:? Generated for Printi jessica/Maia/eTransmitting on:?11/28/2024 12:00 PM EDT
--- OUTSIDE RECORDS SUMMARY | 2024-11-28 12:01 | XMS_ITS | Clinical Summary ---
Author Organization [facility] Address [address] [place] [address] Phone Care Team Providers Care Road Supervisor Of Engines Name Role Phone Celsa Henderson MD Primary Care Provider Encounters Date Type Department Care Team Description 11/12/2024 7:12 AM EDT - 11/12/2024 11:59 PM EDT [facility] [address] [place] [address] Encounter for screening mammogram for breast cancer Discharge Disposition: Home or Self Care from Last 3 Months Social History Tobacco Use Types Packs/Day Years Used Date Smoking Tobacco: Never Assessed Comments No Sex and Gender Information Value Date Recorded Sex Assigned at Female 11/11/2024 9:28 AM EDT Legal Sex Female 1:17 PM EST Gender Identity Female 11/11/2024 9:28 AM EDT Sexual Orientation Not on file Obstetrics History Para Term AB IAB SAB Ectopic Multiple Livin g Live Births 2 Last Filed Vital Signs Vital Sign Reading Time Taken Comments Blood Pressure - - Pulse - - Temperature - - Respiratory Rate - - Oxygen Saturation - - Inhaled Oxygen Concentration - - Weight 85.7 kg (189 lb) 11/12/2024 7:16 AM EDT Height 170.2 cm (5' 7 ) 11/12/2024 7:16 AM EDT Body Mass Index 29.6 11/12/2024 7:16 AM EDT Plan of Treatment Health Maintenance Due Date Last Done Comments DTaP,Tdap,and Td Vaccines (1 - Tdap) 1992 Hepatitis B Vaccines (1 of 3 - 19+ 3-dose series) 1992 Cervical Cancer Screening: P ap Smear 1994 Pneumococcal Vaccine: 50+ Ye ars (1 of 1 - PCV) 2023 Zoster Vaccines (1 of 2) 2023 COVID-19 Vaccine (1 - 2023-2 5 season) 2024 Influenza Vaccine (#1) 2024 Colorectal Cancer Screening: Colonoscopy 09/03/2024 Depression Screening 09/03/2024 HIV Screening 09/03/2024 Hepatitis C Screening 09/03/2024 Social Influencers of Health Screening 09/03/2024 Breast Cancer Screening 11/12/2026 11/12/2024 HIB Vaccines Aged Out No longer eligi [...] to 64 Years) Aged Out No longer eligi ble based on patient's age to complete this topic RSV Immunization Patients Un davi 20 months Aged Out No longer eligible b ased on patient's age to complete this topic Varicella Vaccines Aged Out No longer eligible based on patient's age to complete this topic Procedures Procedure Name Priority Date/Time Associated Diagnosis Comments MG MAMMO DIGITAL SCREENING W DIEGO BILAT Routine 11/12/2024 7:23 AM EDT Encounter for screening mammogram for breast cancer from Last 3 Months Results * MG Mammo Digital Screening w Diego bilat (11/12/2024 7:23 AM EDT) Anatomical Region Laterality Modality Breast Bilateral Mammography 11/13/2024 3:41 PM EDT Impressions 11/13/2024 3:44 PM EDT No evidence of breast malignancy. BI-RADS CATEGORY: 2 - BENIGN RECOMMENDATION: Screening bilateral mammogram is recommended in 1 year. Mammo Location: [facility], [address] [place] [address], [address], . -------- FINAL REPORT -------- Dictated By: Domitila Tolliver Dictated Date: 11/13/2024 15:41 ET Assigned Physician: Domitila Tolliver Reviewed and Electronically Signed By: Domitila Tolliver Signed Date: 11/13/2024 15:44 ET Workstation ID: [id number] Transcribed By: Self Edit Transcribed Date: 11/13/2024 15:41 ET Narrative 11/13/2024 3:44 PM EDT CLINICAL: 49 years old, Female, routine annual exam. COMPARISON: 09/16/2021, 08/09/2020, 11/26/2018 and 11/29/2018 ?? TECHNIQUE: Bilateral MLO and CC views were obtained digitally with 3-D mammogram (digital breast tomosynthesis). Computer-aided detection was utilized in evaluation of this exam (CAD). FINDINGS: There is no evidence of suspicious mass or architectural distortion. ??No worrisome calcifications are evident. ??There has been no significant change from prior exam(s). ? Multiple small bilateral low density oval masses consistent with multiple small cysts. BREAST DENSITY: B - There are scattered areas of fibroglandular density. Procedure Note Domitila Tolliver MD - 11/13/2024 CLINICAL: 49 years old, Female, routine annual exam. COMPARISON: 09/16/2021, 08/09/2020, 11/26/2018 and 11/29/2018 TECHNIQUE: Bilateral MLO and CC views were obtained digitally with 3-Dmammogram (digital breast tomosynthesis). Computer-aided detection wasutilized in evaluation of this exam (CAD). FINDINGS: There is no evidence of suspicious mass or architectural distortion. Noworrisome calcifications are evident. There has been no significantchange from prior exam(s). Multiple small bilateral low density ovalmasses consistent with multiple small cysts. BREAST DENSITY: B - There are scattered areas of fibroglandular density. IMPRESSION: No evidence of breast malignancy. BI-RADS CATEGORY: 2 - BENIGN RECOMMENDATION: Screening bilateral mammogram is recommended in 1 year. Mammo Location: [facility], [address] [place] [address], [address], . -------- FINAL REPORT -------- Dictated By: Domitila Tolliver Dictated Date: 11/13/2024 15:41 ET Assigned Physician: Domitila Tolliver Reviewed and Electronically Signed By: Domitila Tolliver Signed Date: 11/13/2024 15:44 ET Workstation ID: [id number] Transcribed By: Self Edit Transcribed Date: 11/13/2024 15:41 ET us Self Referral Sppl IMG BI PROCEDURES Final Resul t from Last 3 Months Insurance CIGNA Care Teams Road Supervisor Of Engines Relationship Specialty Start Date End Date Celsa Henderson MD [address] [place] [address] PCP - General Internal Medicine 11/11/24
--- OUTSIDE RECORDS SUMMARY | 2024-11-28 12:01 | XMS_ITS ---
Author Organization [facility] Address [address] [place] [address] Care Team Providers Care Factory Focus Technician Name Role Phone Santiago TENORIO, Celsa Hanson Primary Care Provider Un available Zhao Benitez Unavailable [phone] Mona Romano Unavailable [phone] REASON FOR VISIT r/s for sooner apt Encounters Encounter Location Date Provider Diagnosis [facility] [address] [place] [address] 09/12/2023 Mona Romano Plan Of Treatment No Information Progress Notes * Laura SKY LDOB:1975 (49 yo F)Acc No.[id number]:09/12/2023 Progress Notes Patient:?ASYA Laura Connelly Provider:?Mona Romano DPM :1975???Age:47 Y???Sex:Female D ate:09/12/2023 Address:[address] [place] Pcp:Teo Marinelli Subjective: * Chief Complaints: * [...] Provider:?Mona Romano DPM Date:? Generated for Gary lopez/Maia/Price on:?11/28/2024 12:00 PM EDT
== END 2024-11-28 11:45 | disposition home or self-care (01) ==
LOC: HO.HSMS 10:31
PROVIDERS: PCP Internal Medicine; Visit Provider Nurse Practitioner Family
DX: G47.00 Insomnia, unspecified (principal); R53.83 Other fatigue; R25.2 Cramp and spasm; F41.1 Generalized anxiety disorder
CPT/HCPCS: 99214

== ENCOUNTER → 2024-11-28 10:30 | Outpatient (BNVA) | payer OTHER, SELFPAY | PROVIDERS: PCP Internal Medicine; Visit Provider Nurse Practitioner Family ==

== ENCOUNTER 2024-12-09 11:24 | Outpatient (REF) | payer OTHER, SELFPAY ==
[2024-12-09 14:03] LABS: Cholesterol 227 mg/dL (<200); Glucose Fasting 104 mg/dL (60-99); HDL Cholesterol 45 mg/dL (>40); LDL Cholesterol Calculated 135 mg/dL (<100); Triglycerides 237 mg/dL (<150)
[2024-12-09 14:08] LABS: Vitamin D 25-OH Total 42.4 ng/mL (>30)
--- OUTSIDE RECORDS SUMMARY | 2024-12-09 14:09 | XMS_ITS | Patient Health Record ---
Author Organization [facility] Address [address] [facility] [place] [address] Care Team Providers Care Psychiatric Mental Health Nurse Name Role Phone Santiago TENORIO, Celsa Hanson Primary Care Provider Un available Zhao Benitez Unavailable [phone] Allergies Allergen (clinical drug ingredient) Drug/Non Drug [...] Problem Status W/U Status Risk Notes Problem [id number] 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 Plan Of Treatment No Information Insurance Providers Payer Name Payer Address Payer Phone Subscriber Number Group Number Insured Name Patient Relationship to Insured Coverage Start Date Coverage End Date Cigna [address] [place], [place] [address] [phone] [id number] Laura Person Self - patient is the insured Medical (General) History Medical History History ICD Code Anemia Anxiety Back,Hip,and Knee pain Cancer covid-19 Diverticulosis Headaches/Migraines Reflux ( GERD) Sciatica Warts Chicken pox Surgical History Surgery Date(Month/Year) leep procedure 08/2003 tubal 06/04/2012 [facility]/29/2013 sling reversal 11/30/2015 tut sling 02/17/2019
--- OUTSIDE RECORDS SUMMARY | 2024-12-09 14:09 | XMS_ITS | Clinical Summary ---
Author Organization [facility] Address [address] [place] [address] Phone Care Team Providers Care Electric Deicer Assembler Name Role Phone Celsa Henderson MD Primary Care Provider [phone] Encounters Date Type Department Care Team Description 11/12/2024 7:12 AM EDT - 11/12/2024 11:59 PM EDT Hospital [facility] [address] [place] [address] Encounter for screening mammogram for [...] Vaccine ( - 2023-2 5 season) 2024 Colorectal Cancer Screening: Colonoscopy 09/03/2024 Depression Screening 09/03/2024 HIV Screening 09/03/2024 Hepatitis C Screening 09/03/2024 Social Influencers of Health Screening 09/03/2024 Influenza Vaccine (Season Ended) 2025 Breast Cancer Screening 11/12/2026 11/12/2024 HIB Vaccines [...] age to complete this topic Meningococcal B Vaccine Aged Out No l onger eligible based on patient's age to complete [...] year. Mammo Location: [facility], [address] [place] [address], [address], . -------- FINAL REPORT -------- Dictated By: Domitila Tolliver Dictated Date: 11/13/2024 15:41 ET Assigned Physician: Domitila Tolliver Reviewed and Electronically Signed By: Domitila Tolliver Signed Date: 11/13/2024 15:44 ET Workstation ID: [id number] Transcribed By: Self Edit Transcribed Date: 11/13/2024 [...] year. Mammo Location: [facility], [address] [place] [address], [address], . -------- FINAL REPORT -------- Dictated By: Domitila Tolliver Dictated Date: 11/13/2024 15:41 ET Assigned Physician: Domitila Tolliver Reviewed and Electronically Signed By: Domitila Tolliver Signed Date: 11/13/2024 15:44 ET Workstation ID: [id number] Transcribed By: Self Edit Transcribed Date: 11/13/2024 15:41 ET us Self Referral Sppl IMG BI PROCEDURES Final Resul t from Last 3 Months Insurance CIGNA Care Teams Electric Deicer Assembler Relationship Specialty Start Date End Date Celsa Henderson MD [address] [place] [address] PCP - General Internal Medicine 11/11/24
--- OUTSIDE RECORDS SUMMARY | 2024-12-09 14:09 | XMS_ITS ---
Author Organization [facility] Address [address] [place] [address] Care Team Providers Care Senior Embedded Software Engineer Name Role Phone Santiago TENORIO, Celsa Hanson Primary Care Provider Un available Zhao Benitez Unavailable [phone] Mona Romano Unavailable [phone] REASON FOR VISIT r/s for sooner apt Encounters Encounter Location Date Provider Diagnosis [facility] [address] [place] [address] 09/12/2023 Mona Romano Plan Of Treatment No Information Progress Notes * Laura SKY LDOB:1975 (49 yo F)Acc No.[id number]:09/12/2023 Progress Notes Patient:?ASYA Laura Connelly Provider:?Mona Romano DPM :1975???Age:47 Y???Sex:Female D ate:09/12/2023 Address:[address] [place] Pcp:Teo Marinelli Subjective: * Chief Complaints: * [...] Romano DPM Date:? Generated for Gary lopez/Maia/Price on:?12/09/2024 02:09 PM EDT
--- OUTSIDE RECORDS SUMMARY | 2024-12-09 14:10 | XMS_ITS ---
Author Organization [facility] Address [address] [place] [address] Care Team Providers Care Staff Software Engineer Name Role Phone Santiago TENORIO, Celsa Hanson Primary Care Provider Un available Zhao Benitez Unavailable [phone] REASON FOR VISIT Purchased Gel Tube Encounters Encounter Location Date Provider Diagnosis [facility] [address] [place] [address] 07/24/2023 Zhao Benitez Plan Of Treatment No Information Progress Notes * Laura SKY LDOB:1975 (47 yo F)Acc No.[id number]:07/24/2023 Patient:?Laura Sky :1975???Age:47 Y???Sex:Female Address:[address] , [place], [address] * true * Date:? Generated for Printi jessica/Maia/eTransmitting on:?12/09/2024 02:09 PM EDT
--- OUTSIDE RECORDS SUMMARY | 2024-12-09 14:10 | XMS_ITS ---
Author Organization [facility] Address [address] [place] [address] Care Team Providers Care Food Processor Name Role Phone Santiago TENORIO, Celsa Hanson Primary Care Provider Un available Zhao Benitez Unavailable [phone] Allergies Allergen (clinical drug ingredient) Drug/Non Drug [...] Problem Status W/U Status Risk Notes Problem [id number] 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 Vital Signs Height 5 ft 7 in in 07/24/2023 Weight 189 lbs 07/24/2023 BMI 29.60 kg/m2 07/24/2023 Encounters Encounter Location Date Provider Diagnosis [facility] [address] [place] [address] 07/24/2023 Zhao Benitez Fungal infection of nail [...] * Laura SKY LDOB:1975 (47 yo F)Acc No.[id number]:07/24/2023 Progress Notes Patient:?Laura Sky Provider:?Zhao Benitez DPM :1975???Age:47 Y???Sex:Female D ate:07/24/2023 Address:[address] [place], [place] [address] Pcp:Teo Marinelli Subjective: * Chief Complaints: * [...] ?Children: yes, 2. ?Marital status: . 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 * Medications:?TakingPriLOSEC OTC 20 MG [...] Benitez DPM Date:?2022 Generated for Gary lopez/Maia/Price on:?12/09/2024 02:09 PM EDT History and Physical Notes * [...]
[2024-12-09 14:28] LABS: Folate 10.8 ng/mL (> or = 4.0); Vitamin B12 801 pg/mL (200-900)
== END 2024-12-09 11:25 | disposition home or self-care (01) ==
LOC: HO.HMGCLDS 11:24
PROVIDERS: PCP Internal Medicine; Visit Provider Internal Medicine
DX: E78.5 Hyperlipidemia, unspecified (principal); R53.83 Other fatigue; E55.9 Vitamin D deficiency, unspecified; Z13.1 Encounter for screening for diabetes mellitus
CPT/HCPCS: 36415; 80061; 82306; 82607; 82746; 82947

== ENCOUNTER 2024-12-10 11:19 | Outpatient (AMB) | payer OTHER, SELFPAY ==
--- NOTE | 2024-12-10 11:37 | MHC.PC.OV ---
Vital Signs 12/10/24 11:38 Height 5 ft 7 in Weight 189 lb BMI 29.6 BP 130/84 Blood Pressure Location Lt brachial Position Sitting Respiration 16 Pulse 93 Pulse Source Pulse Oximeter Temp 98.0 F Temp Source Oral Pulse Oximetry (%) 97 Oxygen Delivery Method Room Air Intake Visit Reasons: b/p check ok'd by Dr. Landon Allergies prednisone Allergy (Unknown, Verified 12/10/24 11:53) paralysis morphine Adverse Reaction (Unknown, Verified 12/10/24 11:53) Itching Medication List - Last Reconciled 12/10/24 by Celsa Henderson MD acetaminophen ER (Tylenol 8 Hour) 650 mg PO Q8H amitriptyline mg PO ybgxzta-gzsjfrvdomdby-vdzxixxq 250-250-65 mg (Excedrin Extra Strength) 1 tab PO Q4-6H PRN cyanocobalamin (vitamin B-12) 500 mcg PO DAILY 30 days diclofenac sodium 1% (Arthritis Pain (diclofenac)) 2 grams topical QID PRN duloxetine 60 mg PO DAILY gabapentin 200 mg Q evening and 300 mg q.h.s. orally bedtime; 30 days omeprazole 20 mg PO DAILY sennosides-docusate sodium 8.6-50 mg (Senexon-S) tabs PO zolpidem (Ambien) 5 mg PO BEDTIME PRN 30 days Tobacco use date assessed: 12/10/24 Dental Screening Dental Screen Date: 12/10/24 Did you have a dental visit in the last 12 months?: Yes Did you have a dental problem in the last 6 months where you did not have access to dental care?: No Was dental information given to patient?: Patient has dentist HPI b/p check ok'd by Dr. Landon HPI Details 49-year-old lady here today attention follow-up. Currently taking olmesartan-HCTZ 20-12.5 mg taken once a day, blood pressure has now been stable and controlled on present treatment. Denies any chest pain no headache no lightheadedness or palpitations. [facility] Medical History (Updated 12/19/24 @ 11:06 by Regina Ortiz, GORE CUTTER, HOSPITAL PHARMACIST) Essential hypertension Impaired fasting glucose SI (sacroiliac) joint dysfunction Dyslipidemia Hx of adenomatous polyp of colon Family history of colon cancer Depression with anxiety Anemia Polyarthralgia Frequent nocturnal awakening CLEMENTINE III (cervical intraepithelial neoplasia grade III) with severe dysplasia Hx of cervical cancer Chronic GERD Vitamin D deficiency Chronic pelvic pain in female Mixed stress and urge urinary incontinence Intermittent lightheadedness Surgical menopause Hx LEEP (loop electrosurgical excision procedure), cervix, Surgical History Hx of hysterectomy H/O colonoscopy History of total vaginal hysterectomy (TVH) History of suburethral sling procedure Hx of tubal ligation Family History Father Hx of cancer of lung Mother History of mental problems Hx of bipolar disorder Mental health disorder Arthritis Osteoporosis Maternal Grandmother History of CVA (cerebrovascular accident) Hx of coronary artery disease Arthritis Osteoporosis Fibromyalgia Son Substance use disorder Daughter Mental health disorder Social History Household Members: Spouse Housing: House Alcohol intake: current Alcohol intake frequency: a few times a month Patient Tobacco Use Status: Never used Tobacco e-Cigarette/Vaping Use: Never Used service: No Current occupational status: unemployed Current occupation: [employer] Sexual orientation: Straight/Heterosexual Gender identity: Female Cognitive needs: No Hearing needs: No Vision needs: Yes Questionnaire PHQ-9 Over the last 2 weeks, how often have you been bothered by any of the following problems? 1. Little interest or pleasure in doing things: several days 2. Feeling down, depressed, or hopeless: several days 3. Trouble falling or staying asleep, or sleeping too much: nearly every day 4. Feeling tired or having little energy: nearly every day 5. Poor appetite or overeating: several days 6. Feeling bad about yourself - or that you are a failure or have let yourself or your family down: not at all 7. Trouble concentrating on things, such as reading the newspaper or watching television: not at all 8. Moving or speaking so slowly that other people could have noticed. Or the opposite - being so fidgety or restless that you have been moving around a lot more than usual: not at all 9. Thoughts that you would be better off or of hurting yourself in some way: not at all Total score: 9 Source: Developed by Nereyda LearyW. Ponce, John Fischer and colleagues, with an educational terrance from [employer]. Thrive Questionnaire Date Thrive assessed: 12/09/24 I am a: Patient What is your living situation today?: I have a steady place to live Within the past 12 months, did the food you bought not last and you didn't have the money to get more?: Never true Within the past 12 months, did you worry whether your food would run out before you got money to buy more?: Never true Do you have trouble paying for medicines?: No Do you have trouble getting transportation to medical appointments?: No Do you have trouble paying your heating and electricity bill?: No Do you have trouble taking care of your child, family member or friend?: No Do you have trouble with day-to-day activities such as bathing, preparing meals, shopping, managing finances, etc.?: No Are you currently unemployed and looking for a job?: No Are you interested in more education?: No Please select the resources that you would like help with: None Currently or been in a relationship where the following occur: No concerns reported THRIVE Score: 0 AUDIT C Alcohol Use Questionnaire (AUDIT-C) 1. How often do you have a drink containing alcohol?: Monthly or less Total Score: 1 APRIL-7 AMB Questionnaire APRIL-7 Date APRIL - 7 assessed: 09/19/24 Feeling nervous, anxious, or on edge: 1 = Several days Not being able to stop or control worryin = Several days Worrying too much about different things: 1 = Several days Trouble relaxin = Several days Being so restless that it is hard to sit still: 1 = Several days Becoming easily annoyed or irritable: 1 = Several days Feeling afraid as if something awful might happen: 1 = Several days Total APRIL-7 score (0-4 normal; 5-9 mild; 10-14 moderate; 15-21 severe): 7 Source: Developed by Drs. Prakash Ruelas, John Peters and colleagues, with an educational terrance from [employer]. Review of Systems Const Denies headache(s) ENT Denies dizziness, Denies headache(s) and Denies nasal congestion Card Denies chest pain, Denies lightheadedness and Denies dyspnea Resp Denies dyspnea Neuro Denies dizziness and Denies headache(s) Endo Reports no additional complaints Dom/Lymph Reports no additional complaints Aller/Immun Reports no additional complaints Physical exam (Primary Care) Vital Signs: Last Vital Signs Temp 98.0 F 12/10/24 11:38 Pulse 93 12/10/24 11:38 Resp 16 12/10/24 11:38 BP 130/84 12/10/24 11:38 Pulse Ox 97 12/10/24 11:38 Oxygen Delivery Method Room Air 12/10/24 11:38 BMI result Body Mass Index 29.6 Tobacco/Smoking Status: Tobacco use Status Tobacco use date assessed 12/10/24 12/10/24 11:42 Patient Tobacco Use Status Never used Tobacco 12/10/24 11:42 e-Cigarette/Vaping Use Never Used 12/10/24 11:42 PHQ-9: PHQ-9 Score PHQ-9: Total score 9 12/10/24 11:51 Thrive Assessment: Date of Thrive Assessment Date Thrive assessed 12/09/24 12/10/24 11:42 Currently or been in a relationship where the following occur: No concerns reported Const General: comfortable and no acute distress Nutritional Appearance: overweight Orientation/consciousness: patient oriented x3 HENMT Head: Yes normocephalic Face and sinus: Yes face symmetric Eyes General: appearance normal, both eyes and all related structures Neck Neck: Yes full ROM, Yes no lymphadenopathy and Yes supple Resp Auscultation: clear to auscultation bilaterally Cardio Other: S1-S2 present regular rate and rhythm Neuro General: patient oriented x3, gait normal, tone normal, moves all extremities and no focal motor deficits Extrem General: Yes full ROM, Yes no joint enlargement and Yes no pedal edema Results Reviewed Results Reviewed: Name: Laura Person Age/Sex: 49/F : 1975 Unit#: [id number] Attend Dr: Liane Frankel PA-C Re10/22/24 Status: DEP REF [facility] Disch: SPEC : [id number] BANDAR: 10/22/24 STATUS: COMP REQ : [id number] RECD: 10/22/[address]: Liane Frankel PA-C COMP: 10/22/24 ENTERED: 10/22/[address]: Celsa Henderson MD ORDERED: CBC Auto Diff Test Result Flag Reference WBC 9.5 4.8-10.8 X10*3/uL RBC 4.24 4.20-5.50 X10*6/uL HGB 12.4 12.0-16.0 g/dl HCT 37.9 37.0-47.0 % MCV 89.4 80.0-98.0 fL MCH 29.2 27.0-33.0 pg MCHC 32.7 31.0-35.0 g/dl RDW 14.1 11.0-16.0 % PLT 221 160-400 X10*3/uL MPV 9.3 L 9.4-12.3 fL Neut Pct Auto 72.5 45-73 % ImGran Pct Auto 0.7 H 0.0-0.4 % Lymp Pct Auto 18.4 L 20-40 % [place] Pct Auto 5.4 2-11 % Eos Pct Auto 2.5 0-4 % Baso Pct Auto 0.5 0-2 % NRBC Pct Auto 0.0 0.0-0.2 /100WBC ANC Neut Abs # 6.9 2.0-8.3 x10*3/uL ImGran Abs Auto 0.07 H 0.00-0.03 X10*3/uL Lymph Abs Auto 1.8 1.2-4.9 X10*3/uL [place] Abs Auto 0.5 0.1-1.2 X10*3/uL Eos Abs Auto 0.2 0.0-0.4 X10*3/uL Baso Abs Auto 0.1 0.0-0.2 X10*3/uL NRBC Abs Auto 0.000 0.0-0.012 X10*3/uL Name: RazaLaura Maricel Age/Sex: 49/F : 1975 Unit#: [id number] Attend Dr: Liane Frankel PA-C Re10/22/24 Status: DEP REF Location: [facility] Disch: SPEC : [id number] BANDAR: 10/22/24 STATUS: COMP REQ : [id number] RECD: 10/22/[address]: Liane Frankel PA-C COMP: 10/22/24 ENTERED: 10/22/[address]: Celsa Henderson MD ORDERED: Liver Panel, BMP Test Result Flag Reference Sodium 140 135-145 mmol/L Potassium 3.9 3.3-5.1 mmol/L CL 106 96-108 mmol/L CO2 26 22-29 mmol/L Gap 12 12-20 BUN 14 9-16 mg/dL Creat 0.84 0.5-1.4 mg/dL eGFR > 60 Chronic Kidney Disease: Estimated GFR < 60 mL/min/1.73m2 Severe Kidney Disease: Estimated GFR < 15 mL/min/1.73m2 Glucose, Random 106 60-115 mg/dL CA 8.8 8.4-10.2 mg/dL Total Bili 0.6 0.0-1.0 mg/dL Direct Bili 0.2 0.0-0.5 mg/dL AST (GOT) 20 5-31 U/L ALT (GPT) 20 0-31 U/L Protein, Total 7.1 6.5-8.0 g/dL Alb 3.9 3.5-5.0 g/dL Alk Phos 89 39-117 U/L Laboratory Tests 05/20/24 12/09/24 10:48 11:28 Sodium 141 Fasting Glucose 104 H Name: Laura Person Age/Sex: 49/F : 1975 Unit#: [id number] Attend Dr: Celsa Henderson MD Re12/09/24 Status: DEP REF Location: [facility] Disch: SPEC : [id number] BANDAR: 12/09/24 STATUS: COMP REQ : [id number] RECD: 12/09/[address]: Celsa Henderson MD COMP: 12/09/24 ENTERED: 12/09/[address]: ORDERED: Glu Fasting, Lipid Panel, Vitamin D 25-OH Test Result Flag Reference FBS 104 H 60-99 mg/dL A fasting glucose from 100-125 mg/dl is considered impaired (pre-diabetes). Triglyceride 237 H <150 mg/dL Desirable Triglyceride: less than 150 mg/dL Borderline High Triglyceride 150-199 mg/dL High Triglyceride: 200-499 mg/dL Very High Triglyceride: greater than or equal to 5OO mg/dL Cholesterol 227 H <200 mg/dL Desirable Cholesterol: less than 200 mg/dL Borderline High Cholesterol: 200-239 mg/dL High Cholesterol: greater than 239 mg/dL LDL Calculated 135 H <100 mg/dL Desirable LDL: less than 100 mg/dL Near Optimal/Above Optimal LDL: 110-129 mg/dL Borderline High LDL: 130-159 mg/dL High LDL: 160-189 mg/dL Very High LDL: greater than or equal to 190 mg/dL HDL 45 >40 mg/dL Desirable HDL: greater than 40 mg/dL Note: This HDL assay may give artificially low results in patients with liver disease. Vitamin D 25-OH 42.4 >30 ng/mL Health Based Reference Values* < 20 ng/mL Deficient 20-30 ng/mL Insufficient > 30 ng/mL Sufficient Coding Level of Care Code Est Pt Level 3 (48799) Diagnoses Essential hypertension I10 Assessment & Plan Assessment & Plan (1) Essential hypertension: Code(s): I10 - Essential (primary) hypertension Category: Medical Plan: Blood pressure controlled on present treatment, will continue on olmesartan-HCTZ 20-12.5 mg tablet taken once a day in a.m.. Reinforced importance of following a low-salt diet and getting regular exercise. Ordered a basic metabolic panel to be done again in 2 weeks together with a hemoglobin A1c Orders: Orders Basic Metabolic Panel Fasting 2 Weeks R73.01 - Impaired fasting glucose, I10 - Essential (primary) hypertension Hemoglobin A1c 2 Weeks R73.01 - Impaired fasting glucose, I10 - Essential (primary) hypertension Medications: New olmesartan-hydrochlorothiazide 20-12.5 mg 1 tab PO DAILY 30 tabs 1RF
[2024-12-10 11:38] VITALS: BP 130/84; PULSE 93; RESP 16; TEMP 36.7; O2SAT 97; BMI 29.6
--- OUTSIDE RECORDS SUMMARY | 2024-12-10 13:44 | XMS_ITS | Patient Health Record ---
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 Plan Of Treatment No Information Insurance Providers Payer Name Payer Address Payer Phone Subscriber Number Group Number Insured Name Patient Relationship to Insured Coverage Start Date Coverage End Date Cigna [address] [place], [place] [address] [phone] [id number] Laura Person Self - patient is the insured Medical (General) History Medical History History ICD Code Anemia Anxiety Back,Hip,and Knee pain Cancer covid-19 Diverticulosis Headaches/Migraines Reflux ( GERD) Sciatica Warts Chicken pox Surgical History Surgery Date(Month/Year) leep procedure 08/2003 tubal 06/04/2012 [facility]2013 [facility] reversal 11/30/2015 [facility] sling 02/17/2019
--- OUTSIDE RECORDS SUMMARY | 2024-12-10 13:45 | XMS_ITS | Clinical Summary ---
Author Organization [facility] Address [address] [place] [address] Phone Care Team Providers Care Dramatic Reader Name Role Phone Celsa Henderson MD Primary Care Provider Encounters Date Type Department Care Team Description 11/12/2024 7:12 AM EDT - 11/12/2024 11:59 PM EDT Hospital Encounter [facility] [address] [place] [address] Encounter for screening mammogram for [...] year. Mammo Location: [facility], [address] [place] [address], [address], . -------- FINAL REPORT -------- Dictated By: Domitila Tolliver Dictated Date: 11/13/2024 15:41 ET Assigned Physician: Domitial Tolliver Reviewed and Electronically Signed By: Domitila Tolliver Signed Date: 11/13/2024 15:44 ET Workstation ID: [id number] Transcribed By: Self Edit Transcribed Date: 11/13/2024 [...] year. Mammo Location: [facility], [address] [place] [address], [address], . -------- FINAL REPORT -------- Dictated By: Domitila Tolliver Dictated Date: 11/13/2024 15:41 ET Assigned Physician: Domitila Tolliver Reviewed and Electronically Signed By: Domitila Tolliver Signed Date: 11/13/2024 15:44 ET Workstation ID: [id number] Transcribed By: Self Edit Transcribed Date: 11/13/2024 15:41 ET us Self Referral Sppl IMG BI PROCEDURES Final Resul t from Last 3 Months Insurance C[employer] Care Teams Dramatic Reader Relationship Specialty Start Date End Date Celsa Henderson MD [address] [place] [address] PCP - General Internal Medicine 11/11/24
--- OUTSIDE RECORDS SUMMARY | 2024-12-10 13:45 | XMS_ITS ---
Author Organization [facility] Address [address] [place] [address] Care Team Providers Care Statement Request Clerk Name Role Phone Santiago TENORIO, Celsa Hanson Primary Care Provider Un available Zhao Benitez Unavailable [phone] Mona Romano Unavailable [phone] REASON FOR VISIT r/s for sooner apt Encounters Encounter Location Date Provider Diagnosis [facility] [address] [place] [address] 09/12/2023 Mona Romano Plan Of Treatment No Information Progress Notes * Laura SKY LDOB:1975 (49 yo F)Acc No.[id number]:09/12/2023 Progress Notes Patient:?ASYA Laura Connelly Provider:?Mona Romano DPM :1975???Age:47 Y???Sex:Female D ate:09/12/2023 Address:[address] [phone] Pcp:Teo Marinelli Subjective: * Chief Complaints: * [...] Romano DPM Date:? Generated for Gary lopez/Maia/Price on:?12/10/2024 01:44 PM EDT
--- OUTSIDE RECORDS SUMMARY | 2024-12-10 13:45 | XMS_ITS ---
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 ?Marital status: . 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 * Medications:?TakingPriLOSEC OTC 20 MG Tablet [...] Benitez DPM Date:?2022 Generated for Gary lopez/Maia/Price on:?12/10/2024 01:45 PM EDT History and Physical Notes * [...]
--- OUTSIDE RECORDS SUMMARY | 2024-12-10 13:45 | XMS_ITS ---
Author Organization [facility] Address [address] [place] [address] Care Team Providers Care Hostess Host Name Role Phone Santiago TENORIO, Celsa Hanson Primary Care Provider Un available Zhao Benitez Unavailable [phone] REASON FOR VISIT Purchased Gel Tube Encounters Encounter Location Date Provider Diagnosis [facility] [address] [place] [address] 07/24/2023 Zhao Benitez Plan Of Treatment No Information Progress Notes * Laura SKY LDOB:1975 (47 yo F)Acc No.[id number]:07/24/2023 Patient:?Laura Sky :1975???Age:47 Y???Sex:Female Address:[address] , [place], [address] * true * Date:? Generated for Printi jessica/Maia/eTransmitting on:?12/10/2024 01:45 PM EDT
== END 2024-12-10 12:12 | disposition home or self-care (01) ==
LOC: HO.HMCC 11:20
PROVIDERS: PCP Internal Medicine; Visit Provider Internal Medicine
DX: I10 Essential (primary) hypertension (principal)

== ENCOUNTER → 2024-12-10 11:19 | Outpatient (BNVA) | payer OTHER, SELFPAY | PROVIDERS: PCP Internal Medicine; Visit Provider Internal Medicine ==

== ENCOUNTER → 2024-12-13 19:31 | Outpatient (BNV) | payer OTHER, SELFPAY | PROVIDERS: PCP Internal Medicine; Visit Provider Radiology Diagnostic Radiology | DX: M54.16 Radiculopathy, lumbar region (principal); N36.8 Other specified disorders of urethra | CPT/HCPCS: 72148; 72195 ==

== ENCOUNTER 2024-12-13 19:32 | Outpatient (REF) | payer OTHER, SELFPAY | END 2024-12-13 19:33 | disposition home or self-care (01) | LOC: HO.MRI 19:32 | PROVIDERS: PCP Internal Medicine; Visit Provider Registered Nurse Emergency | DX: M54.16 Radiculopathy, lumbar region (principal); M53.3 Sacrococcygeal disorders, not elsewhere classified | CPT/HCPCS: 72148; 72195 ==

== ENCOUNTER → 2025-01-01 09:51 | Outpatient (BNVA) | payer OTHER, SELFPAY | PROVIDERS: PCP Internal Medicine ==

== ENCOUNTER 2025-02-26 15:51 | Outpatient (AMB) | payer OTHER, SELFPAY ==
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
--- OUTSIDE RECORDS SUMMARY | 2025-02-26 15:54 | XMS_ITS | Patient Health Record ---
[facility] Address [address] [facility] [place] [address] Care Team Providers Care Beater Operator Name Role Phone Santiago TENORIO, Celsa Hanson Primary Care Provider Un available Zhao Benitez Unavailable [phone] Allergies Allergen (clinical drug ingredient) Drug/Non Drug Allergy documented on EMR Reaction Allergy Type Onset Date Status morphine Morphine itchy Drug Allergy Active prednisone Prednisone paralysis Drug Allergy Activ e Reason For Referral No Information Medications Medication SIG (Take, Route, Fr equency, Duration) Notes Start Date End Date Status PriLOSEC OTC 20 MG 1 tablet 30 minutes before morning meal Orally Once a day; Duration: 30 day(s) Active Social History Tobacco Use: [...] Problem Status W/U Status Risk Notes Problem 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 Plan Of Treatment No Information Insurance Providers Payer Name Payer Address Payer Phone Subscriber Number Group Number Insured Name Patient Relationship to Insured Coverage Start Date Coverage End Date Cigna [address] [place], [place] [phone] [id number] Laura Person Self - patient is the insured Medical (General) History Medical History History ICD Code Anemia Anxiety Back,Hip,and Knee pain Cancer covid-19 Diverticulosis Headaches/Migraines Reflux ( GERD) Sciatica Warts Chicken pox Surgical History Surgery Date(Month/Year) leep procedure 08/2003 tubal 06/04/2012 [facility]2019
--- OUTSIDE RECORDS SUMMARY | 2025-02-26 15:54 | XMS_ITS | Clinical Summary ---
Author Organization [facility] Address [address] [place] [address] Phone Care Team Providers Care Business Analytics Director Name Role Phone Celsa Henderson MD Primary Care Provider Social History Tobacco Use Types Packs/Day Years [...] Vaccines (1 of 2) 2023 COVID-19 Vaccine (2023-2 5 season) 2024 Colorectal Cancer Screening: Colonoscopy [...] Diagnosis Comments MG MAMMO DIGITAL SCREENING W MEET BILAT Routine 11/12/2024 7:23 AM EDT Encounter for screening mammogram for breast cancer from Last 3 Months or Most Recently Relevant to Health Maintenance Results * MG Mammo Digital Screening w Meet bilat (11/12/2024 7:23 AM EDT) Anatomical Region Laterality Modality Breast Bilateral Mammography 11/13/2024 3:41 PM EDT Impressions 11/13/2024 3:44 PM EDT No evidence of breast malignancy. BI-RADS CATEGORY: 2 - BENIGN RECOMMENDATION: Screening bilateral mammogram is recommended in 1 year. [facility]ammo Location: [facility] , [address] [place] [address], [address], . -------- FINAL REPORT -------- Dictated By: Domitila Tolliver Dictated Date: 11/13/2024 15:41 ET Assigned Physician: Domitila Tolliver Reviewed and Electronically Signed By: Domitila Tolliver Signed Date: 11/13/2024 15:44 ET Workstation ID: [id number] Transcribed By: Self Edit Transcribed Date: 11/13/2024 [...] evidence of suspicious mass or architectural distortion. No worrisome calcifications are evident. There has been no significant change from prior exam(s). Multiple small bilateral low density oval masses [...] year. Mammo Location: [facility] , [address] [place] [address], [id number], . -------- FINAL REPORT -------- Dictated By: Domitila Tolliver Dictated Date: 11/13/2024 15:41 ET Assigned Physician: Domitila Tolliver Reviewed and Electronically Signed By: Domitila Tolliver Signed Date: 11/13/2024 15:44 ET Workstation ID: [id number] Transcribed By: Self Edit Transcribed Date: 11/13/2024 15:41 ET us Self Referral Sppl IMG BI PROCEDURES Final Resul t from Last 3 Months or Most Recently Relevant to Health Maintenance Insurance [employer] Care Teams Business Analytics Director Relationship Specialty Start Date End Date Celsa Henderson MD [address] [facility] [place] [address] PCP - General Internal Medicine 11/11/24
[2025-02-26 15:58] VITALS: BP 124/76; PULSE 90; O2SAT 96; BMI 28.3
== END 2025-02-26 16:20 | disposition home or self-care (01) ==
LOC: HO.HGI 15:52
PROVIDERS: PCP Internal Medicine; Visit Provider Nurse Practitioner
DX: Z01.818 Encounter for other preprocedural examination (principal); Z12.11 Encounter for screening for malignant neoplasm of colon; Z86.0101 Personal history of adenomatous and serrated colon polyps
CPT/HCPCS: 99213

== ENCOUNTER 2025-03-10 10:11 | Outpatient (REF) | payer OTHER, SELFPAY ==
--- NOTE | ~2025-03-10 | FL_ITS ---
EXAMINATION: FL GUIDANCE ONLY HISTORY: M53.3 - Sacrococcygeal disorders, not elsewhere classified COMPARISON: None available. TECHNIQUE: Fluoroscopy time: 0.1 minutes. Cumulative Dose: 5.14 mGy. DAP: 0.0708 mGym2 Images: 2. FINDINGS: Fluoroscopic spot films of the lower sacrum demonstrate a needle and contrast material in place. FL/FL guidance in treatment room IMPRESSION: Fluoroscopy during procedure. Please see procedure report for additional information. Electronically signed by: Prakash López MD 03/11/2025 08:36 AM EDT
--- OUTSIDE RECORDS SUMMARY | 2025-03-10 11:15 | XMS_ITS | Patient Health Record ---
[facility] Address [address] [place] [address] Care Team Providers Care Upper Cutter Name Role Phone Santiago TENORIO, Celsa Hanson Primary Care Provider Un available Zhao Benitez Unavailable [phone] Allergies Allergen (clinical drug ingredient) Drug/Non Drug [...] Date Coverage End Date [employer] [address] [place], [place] [phone] [id number] Laura Person Self - patient is the insured Medical (General) History Medical History History ICD Code Anemia Anxiety Back,Hip,and Knee pain Cancer covid-19 Diverticulosis Headaches/Migraines Reflux ( GERD) Sciatica Warts Chicken pox Surgical History Surgery Date(Month/Year) leep procedure 08/2003 tubal 06/04/2012 [facility] 09/29/2013 sling reversal 11/30/2015 [facility] sling 02/17/2019
--- OUTSIDE RECORDS SUMMARY | 2025-03-10 11:15 | XMS_ITS | Clinical Summary ---
Author Organization [facility] Address [address] [place] [phone] Phone Care Team Providers Care Rope Maker Name Role Phone Celsa Henderson MD Primary [...] Influencers of Health Screening 09/03/2024 Influenza Vaccine (#1) 2025 Breast Cancer Screening 11/12/2026 11/12/2024 HIB [...] year. Mammo Location: [facility], [address] [place] [address], [id number], . -------- FINAL REPORT -------- Dictated By: Domitila Tolliver Dictated Date: 11/13/2024 15:41 ET Assigned Physician: Domitila Tolliver Reviewed and Electronically Signed By: Domitila Tolliver Signed Date: 11/13/2024 15:44 ET Workstation ID: [id number] Transcribed By: Self Edit Transcribed Date: 11/13/2024 [...] year. Mammo Location: [facility], [address] [place] [address], [facility], . -------- FINAL REPORT -------- Dictated By: Domitila Tolliver Dictated Date: 11/13/2024 15:41 ET Assigned Physician: Domitila Tolliver Reviewed and Electronically Signed By: Domitila Tolliver Signed Date: 11/13/2024 15:44 ET Workstation ID: [id number] Transcribed By: Self Edit Transcribed Date: 11/13/2024 15:41 ET us Self Referral Sppl IMG BI PROCEDURES Final Resul t from Last 3 Months or Most Recently Relevant to Health Maintenance Insurance [employer] Care Teams Rope Maker Relationship Specialty Start Date End Date Celsa Henderson MD [address] [place] [address] PCP - General Internal Medicine 11/11/24
== END 2025-03-10 10:12 | disposition home or self-care (01) ==
LOC: CF 10:11
PROVIDERS: Visit Provider Anesthesiology
DX: Z01.419 Encounter for gynecological examination (general) (routine) without abnormal findings (principal); M53.3 Sacrococcygeal disorders, not elsewhere classified; Z12.31 Encounter for screening mammogram for malignant neoplasm of breast; Z12.11 Encounter for screening for malignant neoplasm of colon
CPT/HCPCS: 64999; 77003; J2003; J2795; J3301; Q9967

== ENCOUNTER 2025-03-10 11:11 | Outpatient (AMB) | payer OTHER, SELFPAY ==
--- NOTE | 2025-03-10 11:14 | MHC.OFFVIS ---
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 No complaints. Last Pap/HPV was negative in 02/15 Last Mammogram was BI-RADS 1 in 10/20 Last Colonoscopy was done in 06/17, the recommendation was to repeat in 3 years [facility] Medical History Essential hypertension Impaired fasting glucose SI (sacroiliac) joint dysfunction Dyslipidemia Hx of adenomatous polyp of colon Family history of colon cancer Depression with anxiety Anemia Polyarthralgia Frequent nocturnal awakening CLEMENTINE III (cervical intraepithelial neoplasia grade III) with severe dysplasia Hx of cervical cancer Chronic GERD Vitamin D deficiency Chronic pelvic pain in female Mixed stress and urge urinary incontinence Intermittent lightheadedness Surgical menopause Hx LEEP (loop electrosurgical excision procedure), cervix, Surgical History Hx of hysterectomy H/O colonoscopy History of total vaginal hysterectomy (TVH) History of suburethral sling procedure Hx of tubal ligation Family History Father Hx of cancer of lung Mother History of mental problems Hx of bipolar disorder Mental health disorder Arthritis Osteoporosis Maternal Grandmother History of CVA (cerebrovascular accident) Hx of coronary artery disease Arthritis Osteoporosis Fibromyalgia Son Substance use disorder Daughter Mental health disorder Social History Household Members: Spouse Housing: House Alcohol intake: current Alcohol intake frequency: a few times a month Patient Tobacco Use Status: Never used Tobacco e-Cigarette/Vaping Use: Never Used service: No Current occupational status: unemployed Current occupation: [employer] Sexual orientation: Straight/Heterosexual Gender identity: Female Cognitive needs: No Hearing needs: No Vision needs: Yes Female Reproductive History Menstrual Date of Mammogram: 10/24/23 Review of Systems Const All systems reviewed & are unremarkable except as noted in HPI and below Card Reports as per HPI Resp Reports as per HPI GI Reports as per HPI and Reports no additional complaints Reports as per HPI Physical Exam Vital Signs: Last Vital Signs BP 100/70 03/10/25 11:16 BMI result Body Mass Index 28.2 Const General: cooperative, healthy appearing and comfortable Chest Chest palpation & inspection: normal inspection of the chest and normal palpation of entire chest wall Breast/axilla inspection: normal inspection of the breasts and normal inspection of the axillae Breast/axilla palpation: normal palpation of the breasts, normal palpation of the axillae and no axillary lymphadenopathy Resp Effort & Inspection: normal respiratory effort Auscultation: clear to auscultation bilaterally Percussion: percussion normal Cardio Palpation: normal PMI Rate: regular rate Rhythm: regular rhythm Heart sounds: no murmurs and no rubs Peripheral pulses: Peripheral pulses 2+ throughout GI Inspection: Yes normal to inspection Palpation (GI): Soft to palpation, nontender, no guarding, not rigid and No hepatosplenomegaly present Percussion: Yes normal to percussion Auscultation: normal bowel sounds Rectal Exam - Female: deferred External Female Exam: No lesion Speculum Exam - Vagina: normal appearance of the vagina, normal vaginal discharge and not erythematous Speculum Exam - Cervix: Cervix absent Bimanual exam- vagina & uterus: uterus absent Bimanual Exam- Adnexa, other: normal adnexae, no masses and no tenderness Assessment & Plan Assessment & Plan (1) Well woman exam: Code(s): Z01.419 - Encounter for gynecological examination (general) (routine) without abnormal findings Category: Medical Plan: Vaginal Co testing done since the patient had history of CLEMENTINE 2 status post LEEP in 2003 Counseled the patient about the recommended dietary allowance of 1200 mg of Calcium & 600 IU of vitamin D. Mammogram ordered. The patient was referred to GI for screening colonoscopy . The patient was instructed to perform monthly self-breast exams and schedule annual exam in a year. All questions answered and the patient verbalized understanding. Orders: Orders MM tomosynthesis screening BI Today Z12.31 - Encounter for screening mammogram for malignant neoplasm of breast Referrals Gastroenterology Referral Z12.11 - Encounter for screening for malignant neoplasm of colon Coding Level of Care Code Est Pt Prev Care 40-64y(26473) Diagnoses Well woman exam Z01.419
[2025-03-10 11:16] VITALS: BP 100/70; BMI 28.2
== END 2025-03-10 11:42 | disposition home or self-care (01) ==
LOC: HO.HWS 11:12
PROVIDERS: PCP Internal Medicine; Visit Provider Obstetrics & Gynecology
DX: Z01.419 Encounter for gynecological examination (general) (routine) without abnormal findings (principal)
CPT/HCPCS: 99396; 99459

== ENCOUNTER 2025-03-10 11:57 | Outpatient (REF) | payer OTHER, SELFPAY | END 2025-03-10 11:58 | disposition home or self-care (01) | LOC: HO.LNP 11:57 | PROVIDERS: Visit Provider Obstetrics & Gynecology | DX: Z01.419 Encounter for gynecological examination (general) (routine) without abnormal findings (principal); Z11.51 Encounter for screening for human papillomavirus (HPV) | CPT/HCPCS: 87626; 88175 ==

== ENCOUNTER 2025-03-10 13:10 | Outpatient (AMB) | payer OTHER, SELFPAY ==
--- NOTE | 2025-03-10 13:18 | A.OFFVIS_ITS ---
Vital Signs 03/10/25 13:19 03/10/25 13:43 Height 5 ft 7 in Weight 180 lb BMI 28.2 BP 134/86 135/97 H Blood Pressure Location Lt brachial Lt brachial Position Sitting Sitting Respiration 18 18 Pulse 71 86 Pulse Source Pulse Oximeter Pulse Oximeter Pulse Oximetry (%) 100 98 Oxygen Delivery Method Room Air Room Air Intake Visit Reasons: GANGLION IMPAR BLOCK Guide Required: No Allergies prednisone Allergy (Unknown, Verified 03/10/25 11:18) paralysis morphine Adverse Reaction (Unknown, Verified 03/10/25 11:18) Itching PFSH Medical History Essential hypertension Impaired fasting glucose SI (sacroiliac) joint dysfunction Dyslipidemia Hx of adenomatous polyp of colon Family history of colon cancer Depression with anxiety Anemia Polyarthralgia Frequent nocturnal awakening CLEMENTINE III (cervical intraepithelial neoplasia grade III) with severe dysplasia Hx of cervical cancer Chronic GERD Vitamin D deficiency Chronic pelvic pain in female Mixed stress and urge urinary incontinence Intermittent lightheadedness Surgical menopause Hx LEEP (loop electrosurgical excision procedure), cervix, Surgical History Hx of hysterectomy H/O colonoscopy History of total vaginal hysterectomy (TVH) History of suburethral sling procedure Hx of tubal ligation Family History Father Hx of cancer of lung Mother History of mental problems Hx of bipolar disorder Mental health disorder Arthritis Osteoporosis Maternal Grandmother History of CVA (cerebrovascular accident) Hx of coronary artery disease Arthritis Osteoporosis Fibromyalgia Son Substance use disorder Daughter Mental health disorder Social History Household Members: Spouse Housing: House Alcohol intake: current Alcohol intake frequency: a few times a month Patient Tobacco Use Status: Never used Tobacco e-Cigarette/Vaping Use: Never Used service: No Current occupational status: unemployed Current occupation: [employer] Sexual orientation: Straight/Heterosexual Gender identity: Female Cognitive needs: No Hearing needs: No Vision needs: Yes Physical Exam Vital Signs: Last Vital Signs Pulse 86 03/10/25 13:43 Resp 18 03/10/25 13:43 BP 135/97 H 03/10/25 13:43 Pulse Ox 98 03/10/25 13:43 Oxygen Delivery Method Room Air 03/10/25 13:43 BMI result Body Mass Index 28.2 Assessment & Plan Assessment & Plan (1) Coccydynia: Code(s): M53.3 - Sacrococcygeal disorders, not elsewhere classified Category: Medical Plan Ganglion impar block. Informed consent was thoroughly explained to the patient before the procedure. Risks and benefits were explained including risks of intra vesicular and intra rectal injection, risk of infection, risk of bleeding. The patient came to the operating room. She was positioned prone on operating table with a pillow under her abdomen. Time-out was performed delineating correct site and side of the procedure, nature of the injection, name and date of of the patient. The lower back of the patient bilateral buttocks and intergluteal crease were prepped with ChloraPrep and draped with sterile utility towels. C-arm was brought over the operating field and sq picture of coccygeal spine was demonstrated on the screen. After that C-arm was positioned for the lateral view and on the lateral view the disc between the 1st and 2nd coccygeal vertebras was chosen as the target of the needle insertion. The projection of the target to the skin was injected with small amount of mixture of lidocaine 2% and ropivacaine 0.5% one-to-one. After that 22 gauge 3-1/2 inch needle was inserted through the skin and advanced to were the 1st coccygeal disc. After that the needle was inserted through the disc and advanced 3 mm forward into retro pelvic space. Injection of the contrast was performed delineating spread of the contrast in retro pelvic space. No spread of the contrast in rectal or vesicular fashion was detected. No intravascular spread of the contrast was detected. After that injection of the 5 cc of ropivacaine 0.5% mixed with Kenalog 40 mg was performed in the retro pelvic space. After that the needle was gently removed and sterile dressing with bacitracin and silk tape was applied. The patient tolerated procedure well. Orders: Orders FL guidance in treatment room Today M53.3 - Sacrococcygeal disorders, not elsewhere classified Coding Level of Care Code Procedure Only Diagnoses Coccydynia M53.3
[2025-03-10 13:19] VITALS: BP 134/86; PULSE 71; RESP 18; O2SAT 100; BMI 28.2
[2025-03-10 13:43] VITALS: BP 135/97; PULSE 86; RESP 18; O2SAT 98
== END 2025-03-10 13:43 | disposition home or self-care (01) ==
LOC: HO.PMCPRC 13:10
PROVIDERS: PCP Internal Medicine; Visit Provider Anesthesiology
DX: M53.3 Sacrococcygeal disorders, not elsewhere classified (principal)
CPT/HCPCS: 64999; 77003

== ENCOUNTER 2025-03-25 13:33 | Outpatient (AMB) | payer OTHER, SELFPAY ==
--- OUTSIDE RECORDS SUMMARY | 2016-03-23 | XMS_ITS | Encounter Summary ---
Author Organization [facility] Address [address] [place] [address] Phone Care Team Providers Care Speedometer Inspector Name Role Phone Celsa Henderson MD Primary Care Provider Encounter Details Date Type Department Care Team (Late st Contact Info) Description 03/23/2016 Hospital Encounter [facility] General Imaging [address] [place] [address] Mercedez Handley MD 55 [facility] [place] [address] [email or web address] [email or web address] .pending [facility] to [facility] Social History Tobacco Use Types Packs/Day [...] (No Interpretation) (03/23/2016 12:00 AM EDT) Narrative [facility] - 04/10/2016 9:34 AM EDT This study is for PACS storage only and not for interpretation. Procedure Note SYSTEMGENERATED, DOCUMENTATION - 04/10/2016 This study is for PACS storage only and not for interpretation. us Mercedez Handley MD IMG OUTSIDE IMAGING W/OUT INTERPRETATION Final Result [facility] documented in this encounter Visit Diagnoses Not on filedocumented in this encounter Care Teams Speedometer Inspector Relationship Specialty Start Date End Date Celsa Henderson MD [facility] [place] [address] PCP - General Internal Medicine 02/22/16 documented as of this encounter Additional Source Comments The information contained in this document represents components of the legal health record. It is not the complete legal health record.[facility]
[2025-03-25 13:37] VITALS: BP 111/63; PULSE 84; RESP 16; O2SAT 99; BMI 27.1
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
--- OUTSIDE RECORDS SUMMARY | 2025-03-25 14:10 | XMS_ITS | Clinical Summary ---
Author Organization [facility] Address [address] [place] [address] Phone Care Team Providers Care Sexton Helper Name Role Phone Celsa Henderson MD Primary [...] Vaccine ( - 2023-2 5 season) 2024 Depression Screening 08/27/2024 Colorectal Cancer Screening: Colonoscopy 09/03/2024 HIV Screening 09/03/2024 Hepatitis C Screening [...] year. Mammo Location: [facility], [address] [place] [address], [id number], . -------- FINAL REPORT -------- Dictated By: Domitila Tolliver Dictated Date: 11/13/2024 15:41 ET Assigned Physician: Domitila Tolliver Reviewed and Electronically Signed By: Domitila Tolliver Signed Date: 11/13/2024 15:44 ET Workstation ID: [id number] Transcribed By: Self Edit Transcribed Date: 11/13/2024 [...] year. Mammo Location: [facility], [address] [place] [address], [facility], . -------- FINAL REPORT -------- Dictated By: Domitila Tolliver Dictated Date: 11/13/2024 15:41 ET Assigned Physician: Domitila Tolliver Reviewed and Electronically Signed By: Domitila Tolliver Signed Date: 11/13/2024 15:44 ET Workstation ID: [id number] Transcribed By: Self Edit Transcribed Date: 11/13/2024 15:41 ET us Self Referral Sppl IMG BI PROCEDURES Final Resul t from Last 3 Months or Most Recently Relevant to Health Maintenance Insurance [employer] Care Teams Sexton Helper Relationship Specialty Start Date End Date Celsa Henderson MD [address] [facility] [place] [address] PCP - General Internal Medicine 11/11/24
--- OUTSIDE RECORDS SUMMARY | 2025-03-25 14:10 | XMS_ITS | Patient Health Record ---
Author Organization [facility] Address [address] [place] [address] Care Team Providers Care Tax Map Technician Name Role Phone Santiago TENORIO, Celsa Hanson Primary Care Provider Un available Zhao Benitez Unavailable [phone] Allergies Allergen (clinical drug ingredient) Drug/Non Drug [...] Date Coverage End Date [employer] [address] [place], [place] [address] [phone] [id number] Laura Person Self - patient is the insured Medical (General) History Medical History History ICD Code Anemia Anxiety Back,Hip,and Knee pain Cancer covid-19 Diverticulosis Headaches/Migraines Reflux ( GERD) Sciatica Warts Chicken pox Surgical History Surgery Date(Month/Year) leep procedure 08/2003 tubal 06/04/2012 hysterectomy 09/29/2013 [facility] 09/29/2013 sling reversal 11/30/2015 [facility] sling 02/17/2019
== END 2025-03-25 14:14 | disposition home or self-care (01) ==
LOC: HO.PMC 13:35
PROVIDERS: PCP Internal Medicine; Visit Provider Registered Nurse Emergency
DX: M53.3 Sacrococcygeal disorders, not elsewhere classified (principal); M54.16 Radiculopathy, lumbar region; M70.60 Trochanteric bursitis, unspecified hip
CPT/HCPCS: 99213

== ENCOUNTER 2025-04-15 15:38 | Outpatient (AMB) | payer OTHER, SELFPAY ==
--- OUTSIDE RECORDS SUMMARY | 2016-03-23 | XMS_ITS | Encounter Summary ---
Author Organization [facility] Address [address] [place] [address] Phone Care Team Providers Care Developer Advocate Name Role Phone Celsa Henderson MD Primary Care Provider Encounter Details Date Type Department Care Team (Late st Contact Info) Description 03/23/2016 Hospital Encounter [facility] Imaging [address] [place] [address] Mercedez Handley MD 55 [facility]148 [place] [address] [email or web address] Social History Tobacco Use Types Packs/Day Years [...] (No Interpretation) (03/23/2016 12:00 AM EDT) Narrative [facility] - 04/10/2016 9:34 AM EDT This study is for PACS storage only and not for interpretation. Procedure Note SYSTEMGENERATED, DOCUMENTATION - 04/10/2016 This study is for PACS storage only and not for interpretation. us Mercedez Handley MD IMG OUTSIDE IMAGING W/OUT INTERPRETATION Final Result [facility] documented in this encounter Visit Diagnoses Not on filedocumented in this encounter Care Teams Developer Advocate Relationship Specialty Start Date End Date Celsa Henderson MD [facility] [place] [address] PCP - General Internal Medicine 02/22/16 documented as of this encounter Additional Source Comments The information contained in this document represents components of the legal health record. It is not the complete legal health record.[facility]
[2025-04-15 15:57] VITALS: BP 129/71; PULSE 76; RESP 16; O2SAT 99; BMI 27.1
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
--- OUTSIDE RECORDS SUMMARY | 2025-04-15 16:24 | XMS_ITS | Clinical Summary ---
Author Organization [facility] Address [address] [place] [address] Phone Care Team Providers Care I&C Tech Name Role Phone Celsa Henderson MD Primary [...] year. Mammo Location: [facility], [address] [place] [address], [id number], . -------- FINAL REPORT -------- Dictated By: Domitila Tolliver Dictated Date: 11/13/2024 15:41 ET Assigned Physician: Domitila Tolliver Reviewed and Electronically Signed By: Domitila Tolliver Signed Date: 11/13/2024 15:44 ET Workstation ID: [id number] Transcribed By: Self Edit Transcribed Date: 11/13/2024 [...] year. Mammo Location: [facility], [address] [place] [address], [facility], . -------- FINAL REPORT -------- Dictated By: Domitila Tolliver Dictated Date: 11/13/2024 15:41 ET Assigned Physician: Domitila Tolliver Reviewed and Electronically Signed By: Domitila Tolliver Signed Date: 11/13/2024 15:44 ET Workstation ID: [id number] Transcribed By: Self Edit Transcribed Date: 11/13/2024 15:41 ET us Self Referral Sppl IMG BI PROCEDURES Final Resul t from Last 3 Months or Most Recently Relevant to Health Maintenance Insurance [employer] Care Teams I&C Tech Relationship Specialty Start Date End Date Celsa Henderson MD [address] [facility] [place] [address] PCP - General Internal Medicine 11/11/24
--- OUTSIDE RECORDS SUMMARY | 2025-04-15 16:24 | XMS_ITS | Patient Health Record ---
[facility] Address [address] [place] [address] Care Team Providers Care Signal Tower Director Name Role Phone Santiago TENORIO, Celsa Hanson Primary Care Provider Un available Zhao Benitez Unavailable [phone] Allergies Allergen (clinical drug ingredient) Drug/Non Drug [...] Date Coverage End Date [employer] [address] Devon parekh, G[place] [address] [id number] Laura Person Self - patient is the insured Medical (General) History Medical History History ICD Code Anemia Anxiety Back,Hip,and Knee pain Cancer covid-19 Diverticulosis Headaches/Migraines Reflux ( GERD) Sciatica Warts Chicken pox Surgical History Surgery Date(Month/Year) leep procedure 08/2003 tubal 06/04/2012 [facility] sl[facility] reversal 11/30/2015 [facility] sling 02/17/2019
== END 2025-04-15 16:14 | disposition home or self-care (01) ==
LOC: HO.PMC 15:39
PROVIDERS: PCP Internal Medicine; Visit Provider Registered Nurse Emergency
DX: M53.3 Sacrococcygeal disorders, not elsewhere classified (principal); M54.16 Radiculopathy, lumbar region; M70.62 Trochanteric bursitis, left hip
CPT/HCPCS: 20610; 99213

== ENCOUNTER → 2025-04-15 15:38 | Outpatient (BNVA) | payer OTHER, SELFPAY | PROVIDERS: PCP Internal Medicine; Visit Provider Registered Nurse Emergency | DX: M70.62 Trochanteric bursitis, left hip (principal) | CPT/HCPCS: 20610; J0665; J3300 ==

== ENCOUNTER 2025-06-04 08:28 | Outpatient (AMB) | payer OTHER, SELFPAY ==
[2025-06-04 09:02] VITALS: BP 120/80; PULSE 60; O2SAT 99
--- NOTE | 2025-06-04 09:02 | A.OFFVIS_ITS ---
Vital Signs 06/04/25 09:02 Height 5 ft 7 in BP 120/80 Blood Pressure Location Lt brachial Position Sitting Pulse 60 Pulse Source Pulse Oximeter Pulse Oximetry (%) 99 Oxygen Delivery Method Room Air Intake Visit Reasons: 6 mnts f/u Intake Note: Patient presents follow up Sleep medication. Labs in chart Miss[employer] Facilities Repairer Required: No Accompanied by: Mother Allergies prednisone Allergy (Unknown, Verified 06/04/25 09:23) paralysis morphine Adverse Reaction (Unknown, Verified 06/04/25 09:23) Itching Medication List - Last Reconciled 06/04/25 by ZULAY Escobar acetaminophen ER (Tylenol 8 Hour) 650 mg PO Q8H amitriptyline mg PO [id number]-qhltsjmxmzzka-dqnfqjde 250-250-65 mg (Excedrin Extra Strength) 1 tab PO Q4-6H PRN bisacodyl (Dulcolax (bisacodyl)) 10 mg (2 x 5 mg) PO BEDTIME 2 days cyanocobalamin (vitamin B-12) 500 mcg PO DAILY 30 days diclofenac sodium 1% (Arthritis Pain (diclofenac)) 2 grams topical QID PRN duloxetine 60 mg PO DAILY gabapentin 2 caps q5 pm and 3 caps q 9pm orally; olmesartan-hydrochlorothiazide 20-12.5 mg 1 tab PO DAILY omeprazole 20 mg PO DAILY peg 3350-electrolytes 236-22.74-6.74 -5.86 gram (Golytely) 240 mL PO Q10M 1 day sennosides-docusate sodium 8.6-50 mg (Senexon-S) tabs PO zolpidem (Ambien) 5 mg PO BEDTIME PRN 30 days HPI Comments Details: 49-yr-old female presents for f/u visit of sleep difficulties and muscle cramps. Pt denies any significant interval medical changes. She reports that since last visit, she is falling asleep a bit easier, but she is still waking up every couple of hours. She has started to wait to go to bed until she is more tired. And she maintains a consistent wake up schedule. Endorses daytime fatigue, however denies daytime sleepiness. She would like to get at least 5-6 hours of sleep per night. She wonders why she can not sleep. She states she does not move during her sleep. She is compliant with the amitriptyline, gabapentin, and Ambien 5 mg q.h.s.. 12/28/2024, HPI: Since the last visit, the Gabapentin 300mg was not effective for sleep, was increased from 300mg to 500mg qhs, but this has not helped her maintain her sleep. Has leg cramps are better, and pt believes these are not driving reason for insomnia. She did switch her duloxetine to the morning, in hopes this would reduce insomnia but has not made a difference. Interval lab workup was within normal limits, though B12 was low normal and follow-up homocystine level was elevated B3. Since the last visit, the Gabapentin 300mg was not effective for sleep, was increased from 300mg to 500mg qhs, but this has not helped her maintain her sleep. Has leg cramps are better, and pt believes these are not driving reason for insomnia. She did switch her duloxetine to the morning, in hopes this would reduce insomnia but has not made a difference. Interval lab workup was within normal limits, though B12 was low normal and follow-up homocystine level was elevated B3. Goes to bed between 9-10pm, falls asleep around 12am, wakes up every couple of hours and may have difficulty falling back asleep, and wakes up between 6-7am. She is prone to ruminating thoughts and mind racing- thinking about what she needs to do. Occasional coffee intake. Occasional exercise owing to back injury and recent back surgery. 05/19/2024, HPI: In-lab sleep study did not show sleep apnea or PLMS. Pt reports she feels like she is in a constant state of brain fog, fatigue, but cannot sleep. Pt goes to bed at 9:30-10pm, and falling asleep around 11pm. And then wakes up every 2 hrs, but then she cannot easily fall back asleep. She then gets up around 4:30-5am. Denies naps. States her mind just races and is thinking about at times irrelevant things. She is prone to watch the clock at night. She is having more foot and [place] leg cramps at night. She is clenching her teeth more, at night but now during the day as well- and this trigger a migraine headaches. Her migraine bilateral temporal pulsation, pressure- like her eyes will pop out a/w photophobia, phonophobia, nausea, activity intolerance. Pt has tried ? triptans in the past- caused facial numbness, throat closing sensation, and sleepiness but was effective. This occurs 1 x/week. Using Excedrin and rest- which takes the edge off. She can be off-balance at times. Her surgeon, Dr Aranza Magallanes [facility] [place] [facility] advised her not to try Nortriptyline as they felt the Amitriptyline was going to be better for the nerve pain. They recently increased the dose to 25mg bid. Pt is scheduled for an upcoming bladder sling removal and a fascia replacement. She is not working- has been out since an accident last February. [facility] Medical History Essential hypertension Impaired fasting glucose SI (sacroiliac) joint dysfunction Dyslipidemia Hx of adenomatous polyp of colon Family history of colon cancer Depression with anxiety Anemia Polyarthralgia Frequent nocturnal awakening CLEMENTINE III (cervical intraepithelial neoplasia grade III) with severe dysplasia Hx of cervical cancer Chronic GERD Vitamin D deficiency Chronic pelvic pain in female Mixed stress and urge urinary incontinence Intermittent lightheadedness Surgical menopause Hx LEEP (loop electrosurgical excision procedure), cervix, Surgical History Hx of hysterectomy H/O colonoscopy History of total vaginal hysterectomy (TVH) History of suburethral sling procedure Hx of tubal ligation Family History Father Hx of cancer of lung Mother History of mental problems Hx of bipolar disorder Mental health disorder Arthritis Osteoporosis Maternal Grandmother History of CVA (cerebrovascular accident) Hx of coronary artery disease Arthritis Osteoporosis Fibromyalgia Son Substance use disorder Daughter Mental health disorder Social History Household Members: Spouse Housing: House Alcohol intake: current Alcohol intake frequency: a few times a month Patient Tobacco Use Status: Never used Tobacco e-Cigarette/Vaping Use: Never Used service: No Current occupational status: unemployed Current occupation: [employer] Sexual orientation: Straight/Heterosexual Gender identity: Female Cognitive needs: No Hearing needs: No Vision needs: Yes Physical Exam Vital Signs: Last Vital Signs Pulse 60 06/04/25 09:02 BP 120/80 06/04/25 09:02 Pulse Ox 99 06/04/25 09:02 Oxygen Delivery Method Room Air 06/04/25 09:02 Const General: cooperative and no acute distress Orientation/consciousness: patient oriented x3 Resp Effort & Inspection: normal respiratory effort and able to speak in complete sentences Neuro General: patient oriented x3 Cranial nerves: Yes CN's II-XII intact bilaterally Cognition (Neuro): normal cognition Psych Appearance: grossly normal Mental Status: mental status grossly normal Speech and movement: Normal speech and movement present Affect: normal affect Attitude: cooperative Assessment & Plan Assessment & Plan (1) Insomnia: Code(s): G47.00 - Insomnia, unspecified Category: Medical Qualifiers: Insomnia type: unspecified Qualified Code(s): G47.00 - Insomnia, unspecified (2) Fatigue: Code(s): R53.83 - Other fatigue Category: Medical Qualifiers: Fatigue type: unspecified Qualified Code(s): R53.83 - Other fatigue (3) Leg cramps: Code(s): R25.2 - Cramp and spasm Category: Medical (4) Generalized anxiety disorder: Code(s): F41.1 - Generalized anxiety disorder Category: Medical Plan Previous in-lab sleep study- no evidence of sleep apnea or PLMS. Reviewed simple strategies to optimize sleep hygiene, such as not going bed until sleepy. Also discussed that cognitive behavioral therapy for insomnia is gold standard treatment for insomnia. Discussed that sleep medication is not long-term solution for insomnia, however we can adjust the zolpidem to a long- acting formulation in hopes this helps her optimize her sleep maintenance while we work on referring her to a psychologist who specializes in CBT-I. In the meantime: She can also try the CBT-i swim coach scott offered free from the [employer]: https://[email or web address]sportif225.gov/scott/cbt-[email or web address]-swim coach, printed information given to patient Ayden Continue B12 daily supplement. Discontinue zolpidem 5mg qhs. Start zolpidem ER 6.25 mg at bedtime- not taken directly w/ amitriptyline or gabapentin. Continue Gabapentin 200 mg daily at 5 pm and 300 mg daily at 9 pm- for muscle cramps. Continue amitriptyline 25mg daily, advised to take around 9pm. Discontinue Magnesium 400mg qhs- ineffective. Continue OTC mouth guard- until she is able to see her dentist. Previous trials: Magnesium 400 mg q.h.s. was ineffective. Pt to follow-up in 6 months or sooner prn. Orders: Referrals Psychology Referral G47.00 - Insomnia, unspecified Medications: New zolpidem ER (Ambien CR) 6.25 mg PO BEDTIME 30 tabs 1RF 30 days Discontinued zolpidem (Ambien) Discontinued Reason: Doctor's Order 5 mg PO BEDTIME 30 days PRN 30 tabs 1RF insomnia Coding Level of Care Code Est Pt Level 4 (49701) Diagnoses Insomnia, unspecified type G47.00 Insomnia type: unspecified Fatigue, unspecified type R53.83 Fatigue type: unspecified Leg cramps R25.2 Generalized anxiety disorder F41.1
== END 2025-06-04 10:19 | disposition home or self-care (01) ==
LOC: HO.HSMS 08:29
PROVIDERS: PCP Internal Medicine; Visit Provider Nurse Practitioner Family
DX: G47.00 Insomnia, unspecified (principal); R53.83 Other fatigue; R25.2 Cramp and spasm; F41.1 Generalized anxiety disorder
CPT/HCPCS: 99214

== ENCOUNTER 2025-06-24 14:18 | Outpatient (AMB) | payer OTHER, SELFPAY ==
--- OUTSIDE RECORDS SUMMARY | 2016-03-23 | XMS_ITS | Encounter Summary ---
Author Organization [facility] Address [address] [place] [address] Phone Care Team Providers Care Applications Intern Name Role Phone Celsa Henderson MD Primary Care Provider Encounter Details Date Type Department Care Team (Late st Contact Info) Description 03/23/2016 Hospital Encounter [facility] Imaging [address] [place] [address] Mercedez Handley MD 55 [facility]148 [place] [address] [email or web address] Social History Tobacco Use Types Packs/Day [...] on filedocumented in this encounter Care Teams Applications Intern Relationship Specialty Start Date End Date Celsa Henderson MD [facility] [place] [address] PCP - General Internal Medicine 02/22/16 documented as of this encounter Additional Source Comments The information contained in this document represents components of the legal health record. It is not the complete legal health record.[facility]
[2025-06-24 14:25] VITALS: BP 100/70; PULSE 86; RESP 16; TEMP 36.7; O2SAT 100; BMI 27.1
--- NOTE | 2025-06-24 14:25 | A.OFFPC_ITS ---
Vital Signs 06/24/25 14:25 Height 5 ft 7 in Weight 173 lb BMI 27.1 BP 100/70 Blood Pressure Location Lt brachial Respiration 16 Pulse 86 Pulse Source Pulse Oximeter Temp 98.0 F Temp Source Oral Pulse Oximetry (%) 100 Oxygen Delivery Method Room Air Intake Visit Reasons: Annual PE Intake Note: Pt is here today for her PE: last mammogram 10/24/23, papsmear 03/11/25, colonoscopy 06/01/22 Allergies prednisone Allergy (Unknown, Verified 06/24/25 14:38) paralysis morphine Adverse Reaction (Unknown, Verified 06/24/25 14:38) Itching Medication List - Last Reconciled 06/24/25 by Celsa Henderson MD acetaminophen ER (Tylenol 8 Hour) 650 mg PO Q8H amitriptyline mg PO dhxrioi-srylfdofxgtmm-mhpaaojj 250-250-65 mg (Excedrin Extra Strength) 1 tab PO Q4-6H PRN bisacodyl (Dulcolax (bisacodyl)) 10 mg (2 x 5 mg) PO BEDTIME 2 days cyanocobalamin (vitamin B-12) 500 mcg PO DAILY 30 days diclofenac sodium 1% (Arthritis Pain (diclofenac)) 2 grams topical QID PRN duloxetine 60 mg PO DAILY gabapentin 2 caps q5 pm and 3 caps q 9pm orally; olmesartan-hydrochlorothiazide 20-12.5 mg 1 tab PO DAILY omeprazole 20 mg PO DAILY peg 3350-electrolytes 236-22.74-6.74 -5.86 gram (Golytely) 240 mL PO Q10M 1 day sennosides-docusate sodium 8.6-50 mg (Senexon-S) tabs PO zolpidem ER (Ambien CR) 6.25 mg PO BEDTIME 30 days Tobacco use date assessed: 06/24/25 Dental Screening Dental Screen Date: 06/24/25 Did you have a dental visit in the last 12 months?: Yes Did you have a dental problem in the last 6 months where you did not have access to dental care?: No Was dental information given to patient?: Patient has dentist HPI Annual PE HPI Details 49-year-old lady with history of hyperte nsion, impaired fasting glucose, low back pain, dyslipidemia, depression with anxiety, polyarthralgia, chronic GERD , here today for her physical exam. Her last colonoscopy was done in 2021, with 2 adenomatous polyps removed. Patient already has a follow-up appointment with [facility] clinic who will be scheduling her repeat colonoscopy for this year. Patient states that she had her screening mammogram done this year at [facility] with benign findings, copy of results requested Had a normal cervical cancer screening done by Dr. Garcia 03/11/2025, gets it every year due to history of cervical cancer. Had a partial hysterectomy in her 30s, complaining of recurrent hot flashes. Depression anxiety controlled on duloxetine,, sees a therapist Currently being followed at [facility] pain management for sacroiliac joint dysfunction, awaiting approval for Curonix peripheral nerve stimulator Currently sees her group segment consultant,, a skin lesion on her back was removed and found to be cancerous, requiring a follow-up visit. Another lesion that was removed has recurred and is itchy and painful, and she has noticed a new growing lesion under her arm. Recent lab work from earlier this year showed results in the prediabetic range and slightly elevated cholesterol and triglycerides. She reports significant fatigue and is taking vitamin B12 supplements. The patient has changed her diet and has lost 7 pounds since February, with her current weight at 173 pounds Patient does not want to get any vaccines. T PFSH Medical History Essential hypertension Impaired fasting glucose SI (sacroiliac) joint dysfunction Dyslipidemia Hx of adenomatous polyp of colon Family history of colon cancer Depression with anxiety Anemia Polyarthralgia Frequent nocturnal awakening CLEMENTINE III (cervical intraepithelial neoplasia grade III) with severe dysplasia Hx of cervical cancer Chronic GERD Vitamin D deficiency Chronic pelvic pain in female Mixed stress and urge urinary incontinence Intermittent lightheadedness Surgical menopause Hx LEEP (loop electrosurgical excision procedure), cervix, Surgical History Hx of hysterectomy H/O colonoscopy History of total vaginal hysterectomy (TVH) History of suburethral sling procedure Hx of tubal ligation Family History Father Hx of cancer of lung Mother History of mental problems Hx of bipolar disorder Mental health disorder Arthritis Osteoporosis Maternal Grandmother History of CVA (cerebrovascular accident) Hx of coronary artery disease Arthritis Osteoporosis Fibromyalgia Son Substance use disorder Daughter Mental health disorder Social History Household Members: Spouse Housing: House Alcohol intake: current Alcohol intake frequency: a few times a month Patient Tobacco Use Status: Never used Tobacco e-Cigarette/Vaping Use: Never Used service: No Current occupational status: unemployed Current occupation: [employer] Sexual orientation: Straight/Heterosexual Gender identity: Female Cognitive needs: No Hearing needs: No Vision needs: Yes Questionnaire PHQ-9 Over the last 2 weeks, how often have you been bothered by any of the following problems? 1. Little interest or pleasure in doing things: several days 2. Feeling down, depressed, or hopeless: several days 3. Trouble falling or staying asleep, or sleeping too much: nearly every day (Currently being followed at the sleep clinic) 4. Feeling tired or having little energy: nearly every day 5. Poor appetite or overeating: several days 6. Feeling bad about yourself - or that you are a failure or have let yourself or your family down: not at all 7. Trouble concentrating on things, such as reading the newspaper or watching television: not at all 8. Moving or speaking so slowly that other people could have noticed. Or the opposite - being so fidgety or restless that you have been moving around a lot more than usual: not at all 9. Thoughts that you would be better off or of hurting yourself in some way: not at all Total score: 9 Depression Screening Interpretation: Positive (Currently on duloxetine) Depression Screening Follow-up: Existing condition, In treatment and Community Mental Health Worker F/U Depression Screening Done: Yes Source: Developed by Drs. Prakash Ruelas, Nereyda Serra, John Fischer and colleagues, with an educational terrance from [employer]. Thrive Questionnaire Date Thrive assessed: 12/09/24 I am a: Patient What is your living situation today?: I have a steady place to live Within the past 12 months, did the food you bought not last and you didn't have the money to get more?: Never true Within the past 12 months, did you worry whether your food would run out before you got money to buy more?: Never true Do you have trouble paying for medicines?: No Do you have trouble getting transportation to medical appointments?: No Do you have trouble paying your heating and electricity bill?: No Do you have trouble taking care of your child, family member or friend?: No Do you have trouble with day-to-day activities such as bathing, preparing meals, shopping, managing finances, etc.?: No Are you currently unemployed and looking for a job?: No Are you interested in more education?: No Please select the resources that you would like help with: None Currently or been in a relationship where the following occur: No concerns reported THRIVE Score: 0 AUDIT C Alcohol Use Questionnaire (AUDIT-C) 1. How often do you have a drink containing alcohol?: Monthly or less Total Score: 1 APRIL-7 AMB Questionnaire APRIL-7 Date APRIL - 7 assessed: 09/19/24 Feeling nervous, anxious, or on edge: 1 = Several days Not being able to stop or control worryin = Several days Worrying too much about different things: 1 = Several days Trouble relaxin = Several days Being so restless that it is hard to sit still: 1 = Several days Becoming easily annoyed or irritable: 1 = Several days Feeling afraid as if something awful might happen: 1 = Several days Total APRIL-7 score (0-4 normal; 5-9 mild; 10-14 moderate; 15-21 severe): 7 Source: Developed by Drs. Prakash Ruelas, Nereyda Serra, John Fischer and colleagues, with an educational terrance from [employer]. Review of Systems Const Reports no additional complaints Eyes Denies change in vision ENT Denies nasal congestion Card Denies chest pain, Denies lightheadedness and Denies dyspnea Resp Denies cough and Denies dyspnea GI Reports no additional complaints Reports urinary incontinence Musc Reports as per HPI Skin/Breast Reports as per HPI Neuro Reports no additional complaints Psych Reports no additional complaints Endo Reports no additional complaints Dom/Lymph Reports no additional complaints Aller/Immun Reports no additional complaints Physical exam (Primary Care) Vital Signs: Last Vital Signs Temp 98.0 F 06/24/25 14: Pulse 86 06/24/25 14:25 Resp 16 06/24/25 14:25 BP 100/70 06/24/25 14:25 Pulse Ox 100 06/24/25 14:25 Oxygen Delivery Method Room Air 06/24/25 14:25 BMI result Body Mass Index 27.1 Tobacco/Smoking Status: Tobacco use Status Tobacco use date assessed 06/24/25 06/24/25 14:29 Patient Tobacco Use Status Never used Tobacco 06/24/25 14:29 e-Cigarette/Vaping Use Never Used 06/24/25 14:29 PHQ-9: PHQ-9 Score PHQ-9: Total score 9 06/24/25 15:09 Depression Screening Interpretation: Positive (Currently on duloxetine) Depression Screening Follow-up: Existing condition, In treatment and Community Mental Health Worker F/U Thrive Assessment: Date of Thrive Assessment Date Thrive assessed 12/09/24 06/24/25 14:29 Currently or been in a relationship where the following occur: No concerns reported Advance Care Planning discussion: Completed/Scanned Date of discussion: 06/24/25 Who was present: Patient Forms completed: Health Care Proxy Time spent: 16-45 minutes Actual minutes spent: 2 Const General: no acute distress Nutritional Appearance: overweight Orientation/consciousness: patient oriented x3 HENMT Head: Yes normocephalic Face and sinus: Yes face symmetric Eyes General: appearance normal, both eyes and all related structures Neck Neck: Yes full ROM, Yes no lymphadenopathy and Yes supple Resp Auscultation: clear to auscultation bilaterally Cardio Other: S1-S2 present regular rate and rhythm GI Palpation (GI): Soft to palpation, nontender, no guarding and no masses Auscultation: normal bowel sounds General: Yes deferred (Currently followed by OBGYN clinic) Back/Spine/Pelvis Back: back tenderness (Bilateral sacroiliac area) Skin Other: Followed by dermatology clinic Neuro General: patient oriented x3, gait normal, tone normal, moves all extremities and no focal motor deficits Extrem General: Yes full ROM, Yes no joint enlargement and Yes no pedal edema Psych Appearance: grossly normal and well kempt Mental Status: mental status grossly normal Speech and movement: Normal speech and movement present Affect: normal affect Coding Level of Care Code Est Pt Prev Care 40-64y(42558) Diagnoses Annual visit for general adult medical examination with abnormal findings Z00.01 Essential hypertension I10 Dyslipidemia E78.5 Lumbar radiculopathy M54.16 Depression with anxiety F41.8 Chronic GERD K21.9 Vitamin D deficiency E55.9 Impaired fasting glucose R73.01 Mixed stress and urge urinary incontinence N39.46 Surgical menopause E89.40 Low vitamin B12 level R79.89 Advance directive discussed with patient Z71.89 Additional Codes Vital Signs *Quality* - Advance Care Planning discussion: Completed/Scanned ([id number]) Vital Signs *Quality* - Time spent: 16-45 minutes ([id number]) Assessment & Plan Assessment & Plan (1) Annual visit for general adult medical examination with abnormal findings: Code(s): Z00.01 - Encounter for general adult medical examination with abnormal findings (2) Essential hypertension: Code(s): I10 - Essential (primary) hypertension Category: Medical (3) Dyslipidemia: Code(s): E78.5 - Hyperlipidemia, unspecified Category: Medical (4) Lumbar radiculopathy: Code(s): M54.16 - Radiculopathy, lumbar region Category: Medical (5) Depression with anxiety: Code(s): F41.8 - Other specified anxiety disorders Category: Medical (6) Chronic GERD: Code(s): K21.9 - Gastro-esophageal reflux disease without esophagitis Category: Medical (7) Vitamin D deficiency: Code(s): E55.9 - Vitamin D deficiency, unspecified Category: Medical (8) Impaired fasting glucose: Code(s): R73.01 - Impaired fasting glucose Category: Medical (9) Mixed stress and urge urinary incontinence: Comment: seen by Dr Emmanuel, and now sees Dr cheryle Mckeon Code(s): N39.46 - Mixed incontinence Category: Medical (10) Surgical menopause: Code(s): E89.40 - Asymptomatic postprocedural ovarian failure Category: Medical (11) Low vitamin B12 level: Code(s): R79.89 - Other specified abnormal findings of blood chemistry Category: Medical (12) Advance directive discussed with patient: Code(s): Z71.89 - Other specified counseling Plan: Initiated the conversation about Advanced Directives. Advanced Directives help patients prepare for current and future decisions about their medical treatment and place of care. Discussed with patient that it is a process where a patients current condition and prognosis are reviewed, their wishes for information regarding their illness are elicited, and likely medical dilemmas are presented and options discussed. Healthcare proxy form completed today. The form can be amended as needed, reviewed yearly and make changes as needed Plan I reviewed the patient's multiple ongoing health issues, including her chronic back pain and the status of her spinal cord stimulator prior authorization, recommending she contact the specialist's office for an update. We had a detailed discussion about her severe menopausal hot flashes, exploring hormonal (Premarin), non-hormonal (Veozah), and off-label antidepressant (venlafaxine) options. I highlighted the risks of Premarin, such as blood clots, and advised her to discuss the safety and alternatives with her fountain server and mental health provider. I ordered a new set of fasting labs to re-evaluate her prediabetes, hyperlipidemia, and fatigue, and we discussed her recent weight loss. For her new hand pain, I recommended an fkwk-odh-edyjkwo topical anti- inflammatory ointment. We also reviewed necessary health screenings, including the need to schedule a colonoscopy and to check with her insurance about coverage for a bone density scan given her early menopause. Orders: Orders Lipid Panel 06/24/25 E55.9 - Vitamin D deficiency, unspecified, E78.5 - Hyperlipidemia, unspecified, I10 - Essential (primary) hypertension, R73.01 - Impaired fasting glucose, R79.89 - Other specified abnormal findings of blood chemistry Glucose Fasting 06/24/25 E55.9 - Vitamin D deficiency, unspecified, E78.5 - Hyperlipidemia, unspecified, I10 - Essential (primary) hypertension, R73.01 - Impaired fasting glucose, R79.89 - Other specified abnormal findings of blood chemistry Hemoglobin A1c 06/24/25 E55.9 - Vitamin D deficiency, unspecified, E78.5 - Hyperlipidemia, unspecified, I10 - Essential (primary) hypertension, R73.01 - Impaired fasting glucose, R79.89 - Other specified abnormal findings of blood chemistry Vitamin D 25-OH Total 06/24/25 E55.9 - Vitamin D deficiency, unspecified, E78.5 - Hyperlipidemia, unspecified, I10 - Essential (primary) hypertension, R73.01 - Impaired fasting glucose, R79.89 - Other specified abnormal findings of blood chemistry Vitamin B12 and Folate 06/24/25 E55.9 - Vitamin D deficiency, unspecified, E78.5 - Hyperlipidemia, unspecified, I10 - Essential (primary) hypertension, R73.01 - Impaired fasting glucose, R79.89 - Other specified abnormal findings of blood chemistry TSH reflex Free T4 06/24/25 E55.9 - Vitamin D deficiency, unspecified, E78.5 - Hyperlipidemia, unspecified, I10 - Essential (primary) hypertension, R73.01 - Impaired fasting glucose, R79.89 - Other specified abnormal findings of blood chemistry
--- OUTSIDE RECORDS SUMMARY | 2025-06-24 18:30 | XMS_ITS | Encounter Summary ---
Author Organization [facility] Address [address] [place] [address] Phone Care Team Providers Care Trailer Truck Driver Name Role Phone Celsa Henderson MD Primary Care Provider Mercedez Handley MD Unavailable [phone] Mar Palm MD Unavailable Queenie Brandon DO Unavailable [phone] Encounter Details Date Type Department Care Team (Late st Contact Info) Description 11/09/2023 Procedure Pass [facility] [address] [place] [id number] Social History Tobacco Use Types Packs/Day Years [...] with a working camera? Not on file Comments No Sex and Gender Information Value Date Recorded Sex Assigned at Female 03/26/2023 6:42 PM EDT Legal Sex Female 12:16 PM EDT Gender Identity Female 03/26/2023 6:42 PM EDT Sexual Orientation Straight 03/26/2023 6: 42 PM EDT documented as of this encounter Plan of Treatment Not on file documented as of this encounter Visit Diagnoses Not on filedocumented in this encounter Care Teams Trailer Truck Driver Relationship Specialty Start Date End Date Celsa Henderson MD [facility] [place] [address] PCP - General Internal Medicine 02/22/16 Mercedez Handley MD [address] [facility] [address] [place] [address] [email or web address] Pulmonary Disease 04/24/16 Mar Palm MD [address] [facility] [address] [place] [address] [email or web address] Genetics 04/24/16 Queenie Brandon DO [address] [facility] [address] [place] [address] [email or web address] Obstetrics and Gynecology 03/28/23 documented as of this encounter Additional Source Comments The information contained in this document represents components of the legal health record. It is not the complete legal health record.[facility]
--- OUTSIDE RECORDS SUMMARY | 2025-06-24 18:30 | XMS_ITS | Encounter Summary ---
Author Organization [facility] Address [address] [place] [address] Phone Care Team Providers Care Staff Air Defense Officer Name Role Phone Celsa Henderson MD Primary Care Provider Mercedez Handley MD Unavailable [phone] Mar Palm MD Unavailable Queenie Brandon DO Unavailable [phone] Encounter Details Date Type Department Care Team (Late st Contact Info) Description 04/28/2016 Telephone [facility] Medical Genetics [address], [address] [place] [address] Mar Palm MA [address] [place] [address] [email or web address] Social History Tobacco Use Types Packs/Day Years Used Date Smoking Tobacco: Never Comments Unknown Sex and Gender Information Value [...] on filedocumented in this encounter Care Teams Staff Air Defense Officer Relationship Specialty Start Date End Date Celsa Henderson MD [address] [place] [address] [place] [address] PCP - General Internal Medicine 02/22/16 Mercedez Handley MD [address] [facility] [address] [place] [address] [email or web address] Pulmonary Disease 04/24/16 Mar Palm MD [address] [facility] [address] [place] [address] [email or web address] 04/24/16 Queenie Brandon DO [address] [facility] [address] [place] [address] [email or web address] U Obstetrics and Gynecology 03/28/23 documented as of this encounter Additional Source Comments The information contained in this document represents components of the legal health record. It is not the complete legal health record.[facility]
--- OUTSIDE RECORDS SUMMARY | 2025-06-24 18:30 | XMS_ITS | Clinical Summary ---
Author Organization [facility] Address [address] [place] [address] Phone Care Team Providers Care Archeology Faculty Member Name Role Phone Celsa Henderson MD Primary [...] Health Maintenance Due Date Last Done Comments Colorectal Cancer Screening: Colonoscopy 1973 DTaP,Tdap,and Td Vaccines (1 - Tdap) 1992 Hepatitis B Vaccines (1 of 3 - 19+ 3-dose series) 1992 Cervical Cancer Screening: P ap Smear 1994 Pneumococcal Vaccine: 50+ Ye ars (1 of 1 - PCV) 2023 Zoster Vaccines (1 of 2) 2023 Depression Screening 08/27/2024 HIV Screening 09/03/2024 Hepatitis C Screening 09/03/2024 Social Influencers of Health Screening 09/03/2024 COVID-19 Vaccine (1 - 2023-2 5 season) 2025 Influenza Vaccine (#1) 2025 Breast Cancer Screening 11/12/2026 11/12/2024 RSV Immunization Adult Patie nts (1 - 1-dose 75+ series) 2048 HIB Vaccines Aged Out No longer eligi [...] year. Mammo Location: [facility], [address] [place] [address], [id number], . -------- FINAL REPORT -------- Dictated By: Domitila Tolliver Dictated Date: 11/13/2024 15:41 ET Assigned Physician: Domitila Tolliver Reviewed and Electronically Signed By: Domitila Tolliver Signed Date: 11/13/2024 15:44 ET Workstation ID: [id number] Transcribed By: Self Edit Transcribed Date: 11/13/2024 [...] year. Mammo Location: [facility], [address] [place] [address], [id number], . -------- FINAL REPORT -------- Dictated By: Domitila Tolliver Dictated Date: 11/13/2024 15:41 ET Assigned Physician: Domitila Tolliver Reviewed and Electronically Signed By: Domitila Tolliver Signed Date: 11/13/2024 15:44 ET Workstation ID: [id number] Transcribed By: Self Edit Transcribed Date: 11/13/2024 15:41 ET us Self Referral Sppl IMG BI PROCEDURES Final Resul t from Last 3 Months or Most Recently Relevant to Health Maintenance Insurance [employer] Care Teams Archeology Faculty Member Relationship Specialty Start Date End Date Celsa Henderson MD [address] [facility] [place] [address] PCP - General Internal Medicine 11/11/24
--- OUTSIDE RECORDS SUMMARY | 2025-06-24 18:30 | XMS_ITS | Clinical Summary ---
Author Organization [facility] Address [address] [facility] [address] [place] [address] Phone Care Team Providers Care Three Knife Trimmer Name Role Phone Celsa Henderson MD Primary Care Provider Mercedez Handley MD Unavailable [phone] Mar Palm MD Unavailable Queenie Brandon DO Unavailable [phone] Allergies Active Allergy Reactions Criticality Noted Date Comments Morphine Hives 05/08/2024 Prednisone Musculoskeletal Pain 04/18/2016 Leg paralysis Medications omeprazole (PRILOSEC) 20 MG capsule Take 20 mg by mouth daily. Active ibuprofen (ADVIL,MOTRIN) 600 MG tablet take 1 tablet by mouth every 6 hours as needed for pain 30 tablet 11/29/2023 Active ibuprofen (ADVIL,MOTRIN) 600 MG tablet Take 1 tablet (600 mg total) by mouth every 6 (six) hours as needed for pain (specific location in comments). 30 tablet 04/29/2024 Active gabapentin (NEURONTIN) 100 MG capsule 05/19/2024 Active magnesium oxide (MAG-OX) 400 mg (241.3 mg elemental) tablet 05/19/2024 Active oxyCODONE 5 MG immediate release tablet Take 1 tablet (5 mg total) by mouth every 4 (four) hours as needed. Partial fill ok 5 tablet 05/23/2024 Active amitriptyline (ELAVIL) 10 MG tablet take 1 tablet by mouth everyday at bedtime 90 tablet 1 06/16/2024 Active amitriptyline (ELAVIL) 25 MG tablet Take 1 tablet (25 mg total) by mouth 2 (two) times a day. 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 Would recommend just screening colonoscopy at age 48. -has minimal ankle edema by history, none on exam today. 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 Need for laser therapy Family History Medical History Relation Comments Diabetes Father Cpsch-Qxpim-Ucfif syndrome Father Diabetes Maternal Aunt Glaucoma Maternal Grandmother Cardiovascular disease Paternal Grandfather Cardiovascular disease Paternal Grandmother Relation Status Comments Father Maternal Aunt Maternal Grandmother Paternal Grandfather Paternal Grandmother Social History Tobacco Use Types Packs/Day Years Used Date Smoking Tobacco: Never Smokeless Tobacco: Never Tobacco Cessation:Counseling Given: Not Answered Alcohol Use Standard Drinks/Week Comments Not Currently [...] with a working camera? Not on file 05 / Intimate Partner Violence Answer Date R ecorded [...] Orientation Straight 03/26/2023 6: 42 PM EDT Last Filed Vital Signs Vital Sign Reading Time Taken Comments Blood Pressure 145/78 05/21/2024 9:26 PM EDT Pulse 64 05/21/2024 9:26 PM EDT Temperature 36.7 C (98.1 F) 05/21/2024 9:26 PM EDT Respiratory Rate 16 05/21/2024 9:26 PM EDT Oxygen Saturation 100% 05/21/2024 9:26 PM EDT Inhaled Oxygen Concentration - - Weight 88.9 kg (196 lb) 05/21/2024 10:55 AM EDT Height 170.2 cm (5' 7 ) 05/21/2024 10:55 AM EDT Body Mass Index 30.7 05/21/2024 10:55 AM EDT Plan of Treatment Health Maintenance Due Date Last Done Comments Adult Td,Tdap Booster 1973 LIPID PANEL 1973 HEPATITIS C SCREENING 1991 HIV ONE-TIME SCREENING (18-6 5 YEARS) 1991 SCREENING FOR DIABETES 2008 MAMMOGRAM 2013 DEPRESSION SCREENING 05/08/2017 05/08/2016 COLOGUARD 2018 COLONOSCOPY 2018 COLORECTAL CANCER SCREENING 2018 FIT TEST 2018 FOBT 2018 SIGMOIDOSCOPY 2018 VIRTUAL COLONOSCOPY 2018 PNEUMOCOCCAL VACCINES (50+ y ears) (1 of 1 - PCV) 2023 ZOSTER VACCINES (1 of 2) 2023 INFLUENZA VACCINE (#1) 2025 COVID-19 VACCINE (1 - 2024-2 6 season) 2025 RSV VACCINE (1 - 1-dose 75+ series) 2048 SMOKING STATUS SCREENING (On ce After 26 Yrs) Completed 05/08/2024 HEPATITIS A VACCINES Aged Out No long er eligible based on patient's age to complete this topic HIB VACCINES Aged Out No longer eligi ble based on patient's age to complete this topic MENINGOCOCCAL VACCINES (ACWY) Aged Out No longer eligible based on patient's age to complete this topic MENINGOCOCCAL VACCINES (B) Aged Out N o longer eligible based on patient's age to complete this topic Medical Devices Implanted Type Area Rn First Assist Device Identifier Shelf Expiration Date Model / Serial / Lot Mesh Mesh Urethra Kit Urethral Bulkamid - [id number] Implanted:Qty: 1 on 11/09/2023 by Queenie Brandon DO at [facility] N/A: Bladder [employer] 04/26/2026 [id number] / / [id number] Description:2mL administered Insurance CIGNA PPO CIGNA PPO CIGNA PPO Member Subscriber Plan / Payer (Ef fective 2022-Present) Name:Laura Sky Relation to Subscriber:Spouse Name:KENDALL SKY Date of :1977 (Home) Address: [address] [place] [address] Payer ID:[id number] ([facility]) Type:PPO Address: [facility] [id number] [place] [id number] Member Subscriber Plan / Payer (Ef fective 2022-Present) Name:Laura Sky Relation to Subscriber:Spouse Name:KENDALL SKY Date of :1977 (Home) Address: [address] [place] [address] Payer ID:[id number] ([facility]) Type:PPO Address: [facility] [id number] [place] [id number] CIGNA PPO CIGNA PPO CIGNA PPO Advance Directives For more information, please contact: [phone] (9AM - 5PM [facility], Sunday-Sunday) Documents on File Type Date Recorded Patient Risk And Insurance Manager Expl anation Healthcare Proxy 05/23/2024 5:45 PM Care Teams Three Knife Trimmer Relationship Specialty Start Date End Date Celsa Henderson MD [facility] [address] [place] [address] PCP - General Internal Medicine 02/22/16 Mercedez Handley MD [address] [facility] [address] [place] [address] [email or web address] Pulmonary Disease 04/24/16 Mar Palm MD [address] [facility] [address] [place] [address] [email or web address] Genetics 04/24/16 Queenie Brandon DO [address] [facility] [address] [place] [address] [email or web address] U Obstetrics and Gynecology 03/28/23 Additional Source Comments The information contained in this document represents components of the legal health record. It is not the complete legal health record.[facility]
--- OUTSIDE RECORDS SUMMARY | 2025-06-24 18:30 | XMS_ITS | Encounter Summary ---
Author Organization [facility] Address [address] [place] [address] Phone Care Team Providers Care Safety Supervisor Name Role Phone Celsa Henderson MD Primary Care Provider Mercedez Handley MD Unavailable [phone] Mar Palm MD Unavailable Queenie Brandon DO Unavailable [phone] Encounter Details Date Type Department Care Team (Late st Contact Info) Description 05/21/2024 Procedure Pass [facility] PERIOPERATIVE DEPT [address] [place] [id number] Social History Tobacco Use Types Packs/Day Years [...] on filedocumented in this encounter Care Teams Safety Supervisor Relationship Specialty Start Date End Date Celsa Henderson MD [address] [facility] [place] [address] PCP - General Internal Medicine 02/22/16 Mercedez Handley MD [address] [place] [address] [email or web address] Pulmonary Disease 04/24/16 Mar Palm MD [address] [place] [address] [email or web address] Genetics 04/24/16 Queenie Brandon DO [address] [place] [address] [email or web address] Obstetrics and Gynecology 03/28/23 documented as of this encounter Additional Source Comments The information contained in this document represents components of the legal health record. It is not the complete legal health record.[facility]
--- OUTSIDE RECORDS SUMMARY | 2025-06-24 18:30 | XMS_ITS | Patient Health Record ---
Author [facility] Address [address] [place] [address] Care Team Providers Care Microfilm Camera Operator Name Role Phone Santiago TENORIO, Celsa Hanson Primary Care Provider Un available Zhao Benitez Unavailable [phone] Allergies Allergen (clinical drug ingredient) Drug/Non Drug [...] Risk Notes Problem Fungal infection of nail (617263763) 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 Plan Of Treatment No Information Insurance Providers Payer Name Payer Address Payer Phone Subscriber Number Group Number Insured Name Patient Relationship to Insured Coverage Start Date Coverage End Date Cigna [address] [place], [place] [address] [id number] Laura Person Self - patient is the insured Medical (General) History Medical History History ICD Code Anemia Anxiety Back,Hip,and Knee pain Cancer covid-19 Diverticulosis Headaches/Migraines Reflux ( GERD) Sciatica Warts Chicken pox Surgical History Surgery Date(Month/Year) leep procedure 08/2003 tubal 06/04/2012 hysterectomy 09/29/2013 [facility] sling 09/29/2013 sling reversal 11/30/2015 [facility] sling 02/17/2019
== END 2025-06-24 15:05 | disposition home or self-care (01) ==
LOC: HO.HMCC 14:19
PROVIDERS: PCP Internal Medicine; Visit Provider Internal Medicine
DX: Z00.01 Encounter for general adult medical examination with abnormal findings (principal); I10 Essential (primary) hypertension; E78.5 Hyperlipidemia, unspecified; M54.16 Radiculopathy, lumbar region; F41.8 Other specified anxiety disorders; K21.9 Gastro-esophageal reflux disease without esophagitis; E55.9 Vitamin D deficiency, unspecified; R73.01 Impaired fasting glucose; N39.46 Mixed incontinence; E89.40 Asymptomatic postprocedural ovarian failure; R79.89 Other specified abnormal findings of blood chemistry; Z71.89 Other specified counseling

== ENCOUNTER 2025-07-17 13:38 | Outpatient (AMB) | payer OTHER, SELFPAY ==
--- OUTSIDE RECORDS SUMMARY | 2016-03-22 23:00 | XMS_ITS | Encounter Summary ---
Author Organization [facility] Address [address] [place] [address] Phone Care Team Providers Care Mechanical Product Design Engineer Name Role Phone Celsa Henderson MD Primary Care Provider Encounter Details Date Type Department Care Team (Late st Contact Info) Description 03/23/2016 Hospital Encounter [facility] Imaging [address] [place] [address] Mercedez Handley MD 55 [facility]148 [place] [address] [email or web address] Social History Tobacco Use Types Packs/Day Years [...] (No Interpretation) (03/23/2016 12:00 AM EDT) Narrative [facility] [place] - 04/10/2016 9:34 AM EDT This study is for PACS storage only and not for interpretation. Procedure Note SYSTEMGENERATED, DOCUMENTATION - 04/10/2016 This study is for PACS storage only and not for interpretation. us Mercedez Handley MD IMG OUTSIDE IMAGING W/OUT INTERPRETATION Final Result [facility] documented in this encounter Visit Diagnoses Not on filedocumented in this encounter Care Teams Mechanical Product Design Engineer Relationship Specialty Start Date End Date Celsa Henderson MD [facility] [place] [address] PCP - General Internal Medicine 02/22/16 documented as of this encounter Additional Source Comments The information contained in this document represents components of the legal health record. It is not the complete legal health record.[facility]
--- NOTE | 2025-07-17 13:40 | MHC.OFFVIS ---
Vital Signs 07/17/25 13:42 Height 5 ft 7 in Weight 176 lb BMI 27.6 BP 129/69 Blood Pressure Location Rt brachial Position Sitting Respiration 16 Pulse 85 Pulse Source Pulse Oximeter Pulse Oximetry (%) 100 Oxygen Delivery Method Room Air Intake Visit Reasons: Procedure Discussion: SI PNS Denied Laminator Required: No Accompanied by: Self / Same As Patient Allergies prednisone Allergy (Unknown, Verified 07/17/25 13:41) paralysis morphine Adverse Reaction (Unknown, Verified 07/17/25 13:41) Itching HPI Comments Details: The patient is a 49-year-old individual presenting with sacroiliac joint dysfunction and associated pain. The sacroiliac joint dysfunction has been causing significant discomfort, with pain radiating to the thighs and buttocks. The patient reports that the pain started following a fall, which may have exacerbated the condition. The patient has undergone various interventions, including physical therapy, home exercises, and medications such as ibuprofen and Tylenol, to manage the pain. Imaging studies, including MRI of the back and pelvis, have been conducted to assess the condition further. She has been continuing HEP. SI stimulation was denied by her insurance, she is here to discuss other treatment options. Would like to consider SI fusion though diagnostic and therapeutic SIJ injections were not performed through our office nor do we have the records with documented percentage of relief. She would like to proceed with injections so that she can proceed with fusion. The patient has been advised to keep a pain diary following diagnostic injections to evaluate the effectiveness of potential sacroiliac joint fusion. - Onset: Pain started following a fall. - Quality: Pain radiates to the thighs and buttocks. - Exacerbating factors: Activities such as sitting, standing, and going up and down stairs. - Relieving factors: Physical therapy, home exercises, ibuprofen, and Tylenol. - Affect: Pain impacts daily activities and quality of life. - Analgesia: Current medications include ibuprofen and Tylenol. - Activities of Daily Living: Pain interferes with activities such as sitting, standing, and climbing stairs. [facility] Medical History Essential hypertension Impaired fasting glucose SI (sacroiliac) joint dysfunction Dyslipidemia Hx of adenomatous polyp of colon Family history of colon cancer Depression with anxiety Anemia Polyarthralgia Frequent nocturnal awakening CLEMENTINE III (cervical intraepithelial neoplasia grade III) with severe dysplasia Hx of cervical cancer Chronic GERD Vitamin D deficiency Chronic pelvic pain in female Mixed stress and urge urinary incontinence Intermittent lightheadedness Surgical menopause Hx LEEP (loop electrosurgical excision procedure), cervix, Surgical History Hx of hysterectomy H/O colonoscopy History of total vaginal hysterectomy (TVH) History of suburethral sling procedure Hx of tubal ligation Family History Father Hx of cancer of lung Mother History of mental problems Hx of bipolar disorder Mental health disorder Arthritis Osteoporosis Maternal Grandmother History of CVA (cerebrovascular accident) Hx of coronary artery disease Arthritis Osteoporosis Fibromyalgia Son Substance use disorder Daughter Mental health disorder Social History Household Members: Spouse Housing: House Alcohol intake: current Alcohol intake frequency: a few times a month Patient Tobacco Use Status: Never used Tobacco e-Cigarette/Vaping Use: Never Used service: No Current occupational status: unemployed Current occupation: [employer] Sexual orientation: Straight/Heterosexual Gender identity: Female Cognitive needs: No Hearing needs: No Vision needs: Yes Review of Systems Narrative - Musculoskeletal: Reports pain in the sacroiliac joint radiating to thighs and buttocks. Physical Exam Exam Exam: General: awake, alert, oriented. Answers questions appropriately. Fully engaged in examination. Skin: warm, dry, intact HEENT: Normocephalic. Hearing intact. Cardiac: External chest normal in appearance. Respiratory: No cough, audible wheezing or stridor. Abdomen: without gross distension. MS: No obvious swelling or deformities. Able to transition from sit to stand unassisted. SIJ: Thight thrust positive bilaterally, Gaenslen positive bilaterally, SI compression positive bilaterally. Tender over bilateral PSIS Neurological: Oriented to person, place, time and situation. Thought process intact. No gait abnormalities appreciated. Psychiatric: Appropriate mood and affect. Good judgment and insight. Vital Signs: Last Vital Signs Pulse 85 07/17/25 13:42 Resp 16 07/17/25 13:42 BP 129/69 07/17/25 13:42 Pulse Ox 100 07/17/25 13:42 Oxygen Delivery Method Room Air 11/21/25 13:42 BMI result Body Mass Index 27.6 Results Reviewed Results Reviewed: 11/2024 MRI lumbar spine Findings: There is minimal retrolisthesis of L4 on L5. No fractures or suspicious bony lesions are seen. Disc height is well-maintained. There is mild multilevel facet disease. L1-2: No disc bulge or focal protrusion. L2-3: No disc bulge or focal protrusion. L3-4: Mild bulging of the disc without significant canal or foraminal narrowing. L4-5: Mild disc bulge without significant spinal or foraminal stenosis. L5-S1: Minimal disc bulge without significant canal or foraminal narrowing. The cauda equina is unremarkable. Impression: Mild chronic findings as described. No acute abnormality is seen. No significant spinal or foraminal stenosis 12/17/24 MRI pelvis Findings: No suspicious bony lesions are seen. There is no evidence of an insufficiency fracture. No avascular necrosis is identified. No significant degenerative changes are seen in the hips. There is distal left gluteus medius tendinopathy with ill-defined edema at the insertion of the tendon. There is also mild distal right gluteus medius tendinopathy. No iliopsoas bursitis is seen. No soft tissue masses or focal fluid collections are noted. There is no evidence of sacroiliitis. There has been a hysterectomy. There are several cysts adjacent to the urethra measuring up to 11 mm. Impression: Mild gluteus medius tendinopathy bilaterally. There are several cysts adjacent to the urethra of questionable significance.. Assessment & Plan Assessment & Plan (1) Greater trochanteric bursitis: Code(s): M70.60 - Trochanteric bursitis, unspecified hip Category: Medical (2) SI (sacroiliac) joint dysfunction: Code(s): M53.3 - Sacrococcygeal disorders, not elsewhere classified Category: Medical (3) Coccydynia: Code(s): M53.3 - Sacrococcygeal disorders, not elsewhere classified Category: Medical (4) Lumbar radiculopathy: Code(s): M54.16 - Radiculopathy, lumbar region Category: Medical Plan The plan involves conducting bilateral diagnostic injections to assess the potential benefit of sacroiliac joint fusion. The patient will maintain a pain diary to document the effects of the injections on pain levels and activities. If significant pain relief is observed, the next step will be to submit for insurance approval for the fusion procedure. Continue with NSAIDs, HEP, ice, heat and SI belt. Will schedule for fluoroscopy guided bilateral diagnostic SIJ injections with local anesthetic. Patient was informed and verbally consented to the use of an ambient scribe for clinic note documentation during this visit. Patient Instructions: - Keep a pain diary after the diagnostic injections to track pain levels and activities. - Follow up with the clinic once the insurance approval is obtained for the fusion procedure. Coding Level of Care Code Est Pt Level 3 (94049) Complex visit Add On G2211 Diagnoses Greater trochanteric bursitis M70.60 SI (sacroiliac) joint dysfunction M53.3 Coccydynia M53.3 Lumbar radiculopathy M54.16
[2025-07-17 13:42] VITALS: BP 129/69; PULSE 85; RESP 16; O2SAT 100; BMI 27.6
--- OUTSIDE RECORDS SUMMARY | 2025-07-17 14:03 | XMS_ITS | Clinical Summary ---
Author Organization [facility] Address [address] [place] [address] Phone Care Team Providers Care Administrative Analyst Name Role Phone Celsa Henderson MD Primary [...] Health Screening 09/03/2024 COVID-19 Vaccine (1 - 2024-2 6 season) 2025 Influenza Vaccine (#1) 2025 Breast [...] year. Mammo Location: [facility], [address] [place] [address], [address], . -------- FINAL REPORT -------- Dictated By: Domitila Tolliver Dictated Date: 11/13/2024 15:41 ET Assigned Physician: Domitila Tolliver Reviewed and Electronically Signed By: Domitila Tolliver Signed Date: 11/13/2024 15:44 ET Workstation ID: [id number] Transcribed By: Self Edit Transcribed Date: 11/13/2024 [...] year. Mammo Location: [facility], [address] [place] [address], [id number], . -------- FINAL REPORT -------- Dictated By: Domitila Tolliver Dictated Date: 11/13/2024 15:41 ET Assigned Physician: Domitila Tolliver Reviewed and Electronically Signed By: Domitila Tolliver Signed Date: 11/13/2024 15:44 ET Workstation ID: [id number] Transcribed By: Self Edit Transcribed Date: 11/13/2024 15:41 ET us Self Referral Sppl IMG BI PROCEDURES Final Resul t from Last 3 Months or Most Recently Relevant to Health Maintenance Insurance CIGNA Care Teams Administrative Analyst Relationship Specialty Start Date End Date Celsa Henderson MD [address] [facility] [place] [address] PCP - General Internal Medicine 11/11/24
--- OUTSIDE RECORDS SUMMARY | 2025-07-17 14:03 | XMS_ITS | Encounter Summary ---
Author Organization [facility] Address [address] [place] [address] Phone Care Team Providers Care Publications Production Supervisor Name Role Phone Celsa Henderson MD Primary Care Provider Mercedez Handley MD Unavailable [phone] Mar Palm MD Unavailable Queenie Brandon DO Unavailable [phone] Encounter Details Date Type Department Care Team (Late st Contact Info) Description 04/28/2016 Telephone [facility] Medical Genetics [address] [facility] 6th [address], [address] [place] [address] Mar Palm MA [address] [place] [address] [email or web address] Social History Tobacco Use Types Packs/Day Years [...] on filedocumented in this encounter Care Teams Publications Production Supervisor Relationship Specialty Start Date End Date Celsa Henderson MD [address] [place] [address] [place] [address] PCP - General Internal Medicine 02/22/16 Mercedez Handley MD [address] [facility] [address] [place] [address] [email or web address] Pulmonary Disease 04/24/16 Mar Palm MD [address] [facility] [address] [place] [address] [email or web address] Genetics 04/24/16 Queeine Brandon DO [address] [facility] [address] [place] [address] [email or web address] U Obstetrics and Gynecology 03/28/23 documented as of this encounter Additional Source Comments The information contained in this document represents components of the legal health record. It is not the complete legal health record.[facility]
--- OUTSIDE RECORDS SUMMARY | 2025-07-17 14:03 | XMS_ITS | Patient Health Record ---
Author Organization [facility] [place] Address [address] [facility] [place] [address] Care Team Providers Care Ship Mate Name Role Phone Santiago TENORIO, Celsa Hanson Primary Care Provider Un available Zhao Benitez Unavailable [phone] Allergies Allergen (clinical drug ingredient) Drug/Non Drug [...] Risk Notes Problem Fungal infection of nail ([id number]) 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 Plan Of Treatment No Information Insurance Providers Payer Name Payer Address Payer Phone Subscriber Number Group Number Insured Name Patient Relationship to Insured Coverage Start Date Coverage End Date Cigna [address] [place], [place] [address] [id number] Laura Person Self - patient is the insured Medical (General) History Medical History History ICD Code Anemia Anxiety Back,Hip,and Knee pain Cancer covid-19 Diverticulosis Headaches/Migraines Reflux ( GERD) Sciatica Warts Chicken pox Surgical History Surgery Date(Month/Year) leep procedure 08/2003 tubal 06/04/2012 hysterectomy 09/29/2013 [facility] sling 09/29/2013 sling reversal 11/30/2015 [facility] sling 02/17/2019
--- OUTSIDE RECORDS SUMMARY | 2025-07-17 14:03 | XMS_ITS | Encounter Summary ---
Author Organization [facility] Address [address] [place] [address] Phone Care Team Providers Care Wiping Cloth Cutter Name Role Phone Celsa Henderson MD Primary Care Provider Mercedez Handley MD Unavailable [phone] Mar Palm MD Unavailable Queenie Brandon DO Unavailable [phone] Encounter Details Date Type Department Care Team (Late st Contact Info) Description 11/09/2023 Procedure Pass [facility] WAL PERIOP [address] [place] [id number] Social History Tobacco Use Types Packs/Day Years [...] on filedocumented in this encounter Care Teams Wiping Cloth Cutter Relationship Specialty Start Date End Date Celsa Henderson MD [facility] [place] [address] PCP - General Internal Medicine 02/22/16 Mercedez Handley MD [address] [facility] [address] [place] [address] [email or web address] Pulmonary Disease 04/24/16 Mar Palm MD [address] [facility] [address] [place] [address] [email or web address] Genetics 04/24/16 Queenie Brandon DO [address] [facility] [address] [place] [address] [email or web address] U Obstetrics and Gynecology 03/28/23 documented as of this encounter Additional Source Comments The information contained in this document represents components of the legal health record. It is not the complete legal health record.[facility]
--- OUTSIDE RECORDS SUMMARY | 2025-07-17 14:03 | XMS_ITS | Encounter Summary ---
Author Organization [facility] Address [address] [place] [address] Phone Care Team Providers Care Quality Assistant Name Role Phone Celsa Henderson MD Primary Care Provider Mercedez Handley MD Unavailable [phone] Mar Palm MD Unavailable Queenie Brandon DO Unavailable [phone] Encounter Details Date Type Department Care Team (Late st Contact Info) Description 05/21/2024 Procedure Pass [facility] PERIOPERATIVE DEPT [address] [place] [phone] Social History Tobacco Use Types Packs/Day [...] on filedocumented in this encounter Care Teams Quality Assistant Relationship Specialty Start Date End Date Celsa Henderson MD [address] [facility] [place] [address] PCP - General Internal Medicine 02/22/16 Mercedez Handley MD [address] [place] [address] [email or web address] Pulmonary Disease 04/24/16 Mar Palm MD [address] [place] [address] [place] [address] [email or web address] Genetics 04/24/16 Queenie Brandon DO [address] [place] [address] [email or web address] U Obstetrics and Gynecology 03/28/23 documented as of this encounter Additional Source Comments The information contained in this document represents components of the legal health record. It is not the complete legal health record.[facility]
--- OUTSIDE RECORDS SUMMARY | 2025-07-17 14:03 | XMS_ITS | Encounter Summary ---
Author Organization [facility] Address [address] [place] [address] Phone Care Team Providers Care Aircraft Quality Control Inspector Name Role Phone Celsa Henderson MD Primary Care Provider Mercedez Handley MD Unavailable [phone] Mar Palm MD Unavailable Queenie Brandon DO Unavailable Reason for Visit * Reason Comments Medication Refill Encounter Details Date Type Department Care Team (Late st Contact Info) Description 07/13/2025 Refill Urology and Reconstructive Pelvic Surgery [address] [facility] [address]; [address] [place] [address] Queenie Brandon, DO [address] [place] [address] [email or web address] Medication Refill Social History Tobacco Use Types Packs/Day Years [...] PM EDT documented as of this encounter Progress Notes * Nat Kaba RN - 07/13/2025 9:24 AM EST Rx pended to provider for approval. documented in this encounter Plan of Treatment Not on file documented as of this encounter Visit Diagnoses Not on filedocumented in this encounter Care Teams Aircraft Quality Control Inspector Relationship Specialty Start Date End Date Celsa Henderson MD [facility] [place] [address] PCP - General Internal Medicine 02/22/16 Mercedez Handley MD [address] [place] [address] [email or web address] Pulmonary Disease 04/24/16 Mar Palm MD [address] [facility] [address] [place] [address] [email or web address] Genetics 04/24/16 Queenie Brandon DO [address] [place] [address] [email or web address] U Obstetrics and Gynecology 03/28/23 documented as of this encounter Additional Source Comments The information contained in this document represents components of the legal health record. It is not the complete legal health record.[facility]
--- OUTSIDE RECORDS SUMMARY | 2025-07-17 14:03 | XMS_ITS | Clinical Summary ---
Author Organization [facility] Address [address] [facility] [address] [place] [address] Phone Care Team Providers Care Building Code Inspector Name Role Phone Celsa Henderson MD Primary Care Provider Mercedez Handley MD Unavailable [phone] Mar Palm MD Unavailable Queenie Brandon DO Unavailable [phone] Allergies Active Allergy Reactions Criticality Noted Date Comments Morphine Hives 05/08/2024 Prednisone Musculoskeletal Pain 04/18/2016 Leg paralysis Medications omeprazole (PRILOSEC) 20 MG capsule Take 20 mg by mouth daily. Active ibuprofen (ADVIL,MOTRIN) 600 MG tablet take 1 tablet by mouth every 6 hours as needed for pain 30 tablet 4 Active ibuprofen (ADVIL,MOTRIN) 600 MG tablet Take 1 tablet (600 mg total) by mouth every 6 (six) hours as needed for pain (specific location in comments). 30 tablet 4 Active gabapentin (NEURONTIN) 100 MG capsule 4 Active magnesium oxide (MAG-OX) 400 mg (241.3 mg elemental) tablet 4 Active oxyCODONE 5 MG immediate release tablet Take 1 tablet (5 mg total) by mouth every 4 (four) hours as needed. Partial fill ok 5 tablet 4 Active amitriptyline (ELAVIL) 10 MG tablet take 1 tablet by mouth everyday at bedtime 90 tablet 1 4 Active SENEXON-S 8.6-50 mg TAKE 2 TABLETS BY MOUTH EVERY DAY 60 tablet 1 5 Active amitriptyline (ELAVIL) 25 MG tablet TAKE 1 TABLET BY MOUTH TWICE A DAY 180 tablet 1 5 Active amitriptyline (ELAVIL) 25 MG tablet Take 1 tablet (25 mg total) by mouth 2 (two) times a day. 180 tablet 1 5 025 Discontinued Active Problems Problem Noted Date Diagnosed Date [...] Will refer [place] [facility] [place] further [place], ? Need for laser therapy Encounters Date Type Department Care Team Description 07/13/2025 Refill Urology and Reconstructive Pelvic Surgery [address] [place] [address]; [address] [place] [address] Queenie Brandon, DO Medication Refill from Last 3 Months Family History Medical History Relation Comments Diabetes Father Uakcb-Tjecf-Hegfu syndrome Father Diabetes Maternal Aunt Glaucoma Maternal [...] this topic Medical Devices Implanted Type Area Time Lock Expert Device Identifier Shelf Expiration Date Model / Serial / Lot Mesh Mesh Urethra Kit Urethral Bulkamid - [id number] Implanted:Qty: 1 on 11/09/2023 by Queenie Brandon DO at [facility] [place] N/A: Bladder [employer] 04/26/2026 [id number] / / [id number] Description:2mL administered Insurance KEN PPO CIGNA PPO CIGNA PPO CIGNA PPO CIGNA PPO CIGNA PPO CIGNA PPO Member Subscriber Plan / Payer (Ef fective 2022-Present) Name:Laura Sky Relation to Subscriber:Spouse Name:KENDALL SKY Date of :1977 (Home) Address: [address] [place] [address] Payer ID:[id number] (NA) Type:PPO Address: [address] [place] [id number] Member Subscriber Plan / Payer (Ef fective 2022-Present) Name:Laura Sky Relation to Subscriber:Spouse Name:KENDALL SKY Date of :1977 (Home) Address: [address] [place] [address] Payer ID:[id number] ([facility]) Type:PPO Address: [address] [place] [id number] CIGNA PPO Member Subscriber Plan / Payer (Ef fective 2022-Present) Name:Laura Sky Relation to Subscriber:Spouse Name:KENDALL SKY Date of :1977 (Home) Address: [address] [place] [address] Payer ID:[id number] (NA) Type:PPO Address: [address] [place] [id number] Advance Directives For more information, please contact: [phone] (9AM - 5PM [place]/[facility], Sunday-Sunday) Documents on File Type Date Recorded Patient Benefit Director Expl anation Healthcare Proxy 05/23/2024 5:45 PM Care Teams Building Code Inspector Relationship Specialty Start Date End Date Celsa Henderson MD [facility] [place] [address] PCP - General Internal Medicine 02/22/16 Mercedez Handley MD [address] [place] [address] [email or web address] Pulmonary Disease 04/24/16 Mar Palm MD [address] [place] [address] [email or web address] Genetics 04/24/16 Queenie Brandon DO [address] [place] [address] [email or web address] U Obstetrics and Gynecology 03/28/23 Additional Source Comments The information contained in this document represents components of the legal health record. It is not the complete legal health record.[facility]
== END 2025-07-17 14:10 | disposition home or self-care (01) ==
LOC: HO.PMC 13:39
PROVIDERS: PCP Internal Medicine; Visit Provider Registered Nurse Emergency
DX: M70.60 Trochanteric bursitis, unspecified hip (principal); M53.3 Sacrococcygeal disorders, not elsewhere classified; M54.16 Radiculopathy, lumbar region
CPT/HCPCS: 99213

== ENCOUNTER 2025-07-20 10:10 | Outpatient (AMB) | payer OTHER, SELFPAY ==
--- OUTSIDE RECORDS SUMMARY | 2016-03-22 23:00 | XMS_ITS | Encounter Summary ---
Author Organization [facility] Address [address] [place] [address] Phone Care Team Providers Care Electric Milkers Installer Name Role Phone Celsa Henderson MD Primary Care Provider Encounter Details Date Type Department Care Team (Late st Contact Info) Description 03/23/2016 Hospital Encounter [facility] Imaging [address] [place] [address] Mercedez Handley MD 55 [facility] [place] [address] [email or web address] Social History Tobacco Use Types Packs/Day Years [...] (No Interpretation) (03/23/2016 12:00 AM EDT) Narrative [facility]G INTERFACES - 04/10/2016 9:34 AM EDT This study is for PACS storage only and not for interpretation. Procedure Note SYSTEMGENERATED, DOCUMENTATION - 04/10/2016 This study is for PACS storage only and not for interpretation. us Mercedez Handley MD IMG OUTSIDE IMAGING W/OUT INTERPRETATION Final Result [facility]G INTERFACES documented in this encounter Visit Diagnoses Not on filedocumented in this encounter Care Teams Electric Milkers Installer Relationship Specialty Start Date End Date Celsa Henderson MD [facility] [place] [address] PCP - General Internal Medicine 02/22/16 documented as of this encounter Additional Source Comments The information contained in this document represents components of the legal health record. It is not the complete legal health record.[facility]
--- NOTE | 2025-07-20 10:10 | MHC.OFFVIS ---
Intake Visit Reasons: Discuss bone density Allergies prednisone Allergy (Unknown, Verified 07/17/25 13:41) paralysis morphine Adverse Reaction (Unknown, Verified 07/17/25 13:41) Itching HPI Comments Details: The patient is schedule telehealth visit to discuss whether she is a candidate for osteoporosis screening. No previous history of fracture urine or her adulthood, normal mobility no history of systemic glucocorticoid use for more than three-months, no excessive alcohol intake or cigarette smoking and no change in her height loss, current weight is above 127 lb PFSH Medical History Essential hypertension Impaired fasting glucose SI (sacroiliac) joint dysfunction Dyslipidemia Hx of adenomatous polyp of colon Family history of colon cancer Depression with anxiety Anemia Polyarthralgia Frequent nocturnal awakening CLEMENTINE III (cervical intraepithelial neoplasia grade III) with severe dysplasia Hx of cervical cancer Chronic GERD Vitamin D deficiency Chronic pelvic pain in female Mixed stress and urge urinary incontinence Intermittent lightheadedness Surgical menopause Hx LEEP (loop electrosurgical excision procedure), cervix, Surgical History Hx of hysterectomy H/O colonoscopy History of total vaginal hysterectomy (TVH) History of suburethral sling procedure Hx of tubal ligation Family History Father Hx of cancer of lung Mother History of mental problems Hx of bipolar disorder Mental health disorder Arthritis Osteoporosis Maternal Grandmother History of CVA (cerebrovascular accident) Hx of coronary artery disease Arthritis Osteoporosis Fibromyalgia Son Substance use disorder Daughter Mental health disorder Social History Household Members: Spouse Housing: House Alcohol intake: current Alcohol intake frequency: a few times a month Patient Tobacco Use Status: Never used Tobacco e-Cigarette/Vaping Use: Never Used service: No Current occupational status: unemployed Current occupation: [employer] Sexual orientation: Straight/Heterosexual Gender identity: Female Cognitive needs: No Hearing needs: No Vision needs: Yes Review of Systems Const All systems reviewed & are unremarkable except as noted in HPI and below Reports as per HPI and Reports no additional complaints GI Reports no additional complaints Reports no additional complaints Telehealth Telehealth Telehealth [facility]: [facility] Location of provider rendering services: practice address Location of patient: address on file Patient Identification confirmed using: Name, : Yes Telehealth method: video Patient verbally consented to treatment: Yes Patient verbally consented to billing insurance company: Yes Patient informed of any privacy concerns related to visit: Yes Minutes spent on Phone/Video with Pt.: 6 Assessment & Plan Assessment & Plan (1) Osteoporosis screening: Code(s): Z13.820 - Encounter for screening for osteoporosis Category: Medical Plan: Discussed with the patient the indications for osteoporosis screening and the clinical risk factor for fractures including age of 65 and above, previous fracture during adulthood, high fall risk, impaired mobility, chronic glucocorticoid use more than three-month, low body weight less than 127 lb, current cigarette smoking , excess alcohol use and loss of height more than 0.5 in. Explained to the patient that since she does not have any of the clinical risk factors, she is not a candidate for osteoporosis screening. All questions answered, the patient verbalized understanding. I spent a total of 20 minutes reviewing the chart, talking to the patient via video and documenting in the medical record. Coding Level of Care Code Tele Est Pt Level 3 (53815) Diagnoses Osteoporosis screening Z13.820
--- OUTSIDE RECORDS SUMMARY | 2025-07-20 12:21 | XMS_ITS | Clinical Summary ---
Author Organization [facility] Address [address] [place] [address] Phone Care Team Providers Care Highway Patrol Officer Name Role Phone Celsa Henderson MD [...] year. Mammo Location: [facility], [address] [place] [address], [address], . -------- FINAL REPORT -------- Dictated By: Domitila Tolliver Dictated Date: 11/13/2024 15:41 ET Assigned Physician: Domitila Tolliver Reviewed and Electronically Signed By: Domitila Tolliver Signed Date: 11/13/2024 15:44 ET Workstation ID: [id number] Transcribed By: Self Edit Transcribed Date: 11/13/2024 [...] year. Mammo Location: [facility], [address] [place] [address], [address], . -------- FINAL REPORT -------- Dictated By: Domitila Tolliver Dictated Date: 11/13/2024 15:41 ET Assigned Physician: Domitila Tolliver Reviewed and Electronically Signed By: Domitila Tolliver Signed Date: 11/13/2024 15:44 ET Workstation ID: [id number] Transcribed By: Self Edit Transcribed Date: 11/13/2024 15:41 ET us Self Referral Sppl IMG BI PROCEDURES Final Resul t from Last 3 Months or Most Recently Relevant to Health Maintenance Insurance CIGNA Care Teams Highway Patrol Officer Relationship Specialty Start Date End Date Celsa Henderson MD [address] [facility] [place] [address] PCP - General Internal Medicine 11/11/24
--- OUTSIDE RECORDS SUMMARY | 2025-07-20 12:21 | XMS_ITS | Encounter Summary ---
Author Organization [facility] Address [address] [place] [address] Phone Care Team Providers Care Cash Register Servicer Name Role Phone Celsa Henderson MD Primary Care Provider Mercedez Handley MD Unavailable [phone] Mar Palm MD Unavailable Queenie Brandon DO Unavailable [phone] Encounter Details Date Type Department Care Team (Late st Contact Info) Description 04/28/2016 Telephone [facility] [place] Genetics [address] [facility], 6th Floor, [address] [place] [address] Mar Palm MA [address] [place] [address] [email or web address] Social History Tobacco Use Types Packs/Day [...] on filedocumented in this encounter Care Teams Cash Register Servicer Relationship Specialty Start Date End Date Celsa Henderson MD [address] [place] [address] [place] [address] PCP - General Internal Medicine 02/22/16 Mercedez Handley MD [address] [facility] [address] [place] [address] [email or web address] Pulmonary Disease 04/24/16 Mar Palm MD [address] [facility] [address] [place] [address] [email or web address] Genetics 04/24/16 Queenie Brandon DO [address] [facility] [address] [place] [address] [email or web address] U Obstetrics and Gynecology 03/28/23 documented as of this encounter Additional Source Comments The information contained in this document represents components of the legal health record. It is not the complete legal health record.[facility]
--- OUTSIDE RECORDS SUMMARY | 2025-07-20 12:21 | XMS_ITS | Patient Health Record ---
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 Plan Of Treatment No Information Insurance Providers Payer Name Payer Address Payer Phone Subscriber Number Group Number Insured Name Patient Relationship to Insured Coverage Start Date Coverage End Date [employer] [address] [place], [place] [phone] [id number] Laura Person Self - patient is the insured Medical (General) History Medical History History ICD Code Anemia Anxiety Back,Hip,and Knee pain Cancer covid-19 Diverticulosis Headaches/Migraines Reflux ( GERD) Sciatica Warts Chicken pox Surgical History Surgery Date(Month/Year) leep procedure 08/2003 tubal 06/04/2012 hysterectomy 09/29/2013 [facility] sling 09/29/2013 sling reversal 11/30/2015 [facility] sling 02/17/2019
--- OUTSIDE RECORDS SUMMARY | 2025-07-20 12:21 | XMS_ITS | Encounter Summary ---
Author Organization [facility] Address [address] [place] [address] Phone Care Team Providers Care Curator Natural History Museum Name Role Phone Celsa Henderson MD Primary Care Provider Mercedez Handley MD Unavailable [phone] Mar Palm MD Unavailable Queenie Brandon DO Unavailable [phone] Encounter Details Date Type Department Care Team (Late st Contact Info) Description 11/09/2023 Procedure Pass [facility] WAL [address] [place] [id number] Social History Tobacco Use Types Packs/Day Years [...] on filedocumented in this encounter Care Teams Curator Natural History Museum Relationship Specialty Start Date End Date Celsa Henderson MD [facility] [place] [address] PCP - General Internal Medicine 02/22/16 Mercedez Handley MD [address] [facility] [address] [place] [address] [email or web address] Pulmonary Disease 04/24/16 Mar Palm MD [address] [facility] [address] [place] [address] [email or web address] [email or web address] Genetics 04/24/16 Queenie Brandon DO [address] [facility] [address] [place] [address] DAVID@[email or web address] [email or web address] U Obstetrics and Gynecology 03/28/23 documented as of this encounter Additional Source Comments The information contained in this document represents components of the legal health record. It is not the complete legal health record.[facility]
--- OUTSIDE RECORDS SUMMARY | 2025-07-20 12:21 | XMS_ITS | Encounter Summary ---
Author Organization [facility] Address [address] [place] [address] Phone Care Team Providers Care Lock Tender Chief Operator Name Role Phone Celsa Henderson MD Primary Care Provider Mercedez Handley MD Unavailable [phone] Mar Palm MD Unavailable Queenie Brandon DO Unavailable [phone] Encounter Details Date Type Department Care Team (Late st Contact Info) Description 05/21/2024 Procedure Pass [facility] PERIOPERATIVE DEPT [address] [place] [phone] Social History Tobacco Use Types Packs/Day [...] on filedocumented in this encounter Care Teams Lock Tender Chief Operator Relationship Specialty Start Date End Date Celsa Henderson MD [address] [facility] [place] [id number] PCP - General Internal Medicine 02/22/16 Mercedez Handley MD [address] [place] [address] [email or web address] Pulmonary Disease 04/24/16 Mar Palm MD [address] [place] [address] [email or web address] Genetics 04/24/16 Queenie Brandon DO [address] [place] [address] [email or web address] U Obstetrics and Gynecology 03/28/23 documented as of this encounter Additional Source Comments The information contained in this document represents components of the legal health record. It is not the complete legal health record.[facility]
--- OUTSIDE RECORDS SUMMARY | 2025-07-20 12:21 | XMS_ITS | Clinical Summary ---
Author Organization [facility] Address [address] [employer] [facility] [address] [place] [address] Phone Care Team Providers Care Doll Maker Name Role Phone Celsa Henderson MD Primary Care Provider Mercedez Handley MD Unavailable [phone] Mar Palm MD Unavailable Queenie Brandon DO Unavailable [phone] Allergies Active Allergy Reactions Criticality Noted Date [...] Will refer to our retinal specialists at [facility] for further evaluation, ? Need for laser therapy Encounters Date Type Department Care Team Description 07/13/2025 Refill Urology and Reconstructive Pelvic Surgery [address] [place] [address]; [address] [place] [address] Queenie Brandon, DO Medication Refill from Last 3 Months Family History Medical History Relation Comments Diabetes Father Gwdfl-Pcxgt-Mhiyx syndrome Father Diabetes Maternal Aunt Glaucoma Maternal [...] this topic Medical Devices Implanted Type Area Contact Acid Plant Operator Device Identifier Shelf Expiration Date Model / Serial / Lot Mesh Mesh Urethra Kit Urethral Bulkamid - [id number] Implanted:Qty: 1 on 11/09/2023 by Queenie Brandon DO at [facility] N/A: Bladder [employer] 04/26/2026 [id number] / / [id number] Description:2mL administered Insurance KEN PPO CIGNA PPO CIGNA PPO CIGNA PPO CIGNA PPO CIGNA PPO CIGNA PPO Member Subscriber Plan / Payer (Ef fective 2022-Present) Name:Laura Sky Relation to Subscriber:Spouse Name:KENDALL SKY Date of :1977 (Home) Address: [address] [place] [address] Payer ID:[id number] (NA) Type:PPO Address: [address] [place] [id number] Member Subscriber Plan / Payer (Ef fective 2022-Present) Name:Laura Sky Relation to Subscriber:Spouse Name:KENDALL SKY Date of :1977 (Home) Address: [address] [place] [address] Payer ID:[id number] ([facility]) Type:PPO Address: [address] [place] [id number] CIGNA PPO Member Subscriber Plan / Payer (Ef fective 2022-Present) Name:Laura Sky Relation to Subscriber:Spouse Name:KENDALL SKY Date of :1977 (Home) Address: [address] [place] [address] Payer ID:[id number] (NA) Type:PPO Address: [address] [place] [phone] Advance Directives For more information, please contact: [phone] (9AM - 5PM [place]/[facility], Sunday-Sunday) Documents on File Type Date Recorded Patient Schedule Announcer Expl anation Healthcare Proxy 05/23/2024 5:45 PM Care Teams Doll Maker Relationship Specialty Start Date End Date Celsa Henderson MD [facility] [place] [address] PCP - General Internal Medicine 02/22/16 Mercedez Handley MD [address] [place] [address] [email or web address] Pulmonary Disease 04/24/16 Mar Palm MD [address] [place] [address] [email or web address] Genetics 04/24/16 Queenie Brandon DO [address] [place] [address] [email or web address] U Obstetrics and Gynecology 03/28/23 Additional Source Comments The information contained in this document represents components of the legal health record. It is not the complete legal health record.[facility]
== END 2025-07-20 12:05 | disposition home or self-care (01) ==
LOC: HO.HWS 10:10
PROVIDERS: PCP Internal Medicine; Visit Provider Obstetrics & Gynecology
DX: Z13.820 Encounter for screening for osteoporosis (principal)
CPT/HCPCS: 99213

== ENCOUNTER 2025-07-22 09:32 | Outpatient (REF) | payer OTHER, SELFPAY ==
--- OUTSIDE RECORDS SUMMARY | 2016-03-22 23:00 | XMS_ITS | Encounter Summary ---
Author Organization [facility] Address [address] [place] [address] Phone Care Team Providers Care Rocket Motor Tester Name Role Phone Celsa Henderson MD Primary Care Provider Encounter Details Date Type Department Care Team (Late st Contact Info) Description 03/23/2016 Hospital Encounter [facility] Imaging [address] [place] [address] Mercedez Handley MD 55 [facility] [place] [address] [email or web address] Social History Tobacco Use Types Packs/Day Years Used Date Smoking Tobacco: Never Smokeless Tobacco: Never Alcohol Use Standard Drinks/Week Comments Not Currently 0 (1 standard drink = 0.6 oz pur e alcohol) Education Answer Date Recorded Are you interested in more education? Not on manan e 12/22/2022 Are you concerned about learning? Not on file 12/22/2022 No 12/22/2022 No 12/22/2022 Digital Access Answer Date Recorded No 01/22/2023 No 01/22/2023 Reliable internet access at home? Not on file 01/22/2023 Device with a working camera? Not on file Intimate Partner Violence Answer Date R ecorded Are you denied basic needs s uch as food, clothing, or medical care? No 05/21/2024 In the past 12 months have y ou been in a relationship with a person who hurts, threatens, or tries to control you? No 05/21/2024 Are you denied basic needs s uch as food, clothing, or medical care? No 05/21/2024 In the past 12 months have y ou been in a relationship with a person who hurts, threatens, or tries to control you? No 05/21/2024 Comments No Sex and Gender Information Value Date Recorded Sex Assigned at Female 03/26/2023 6:42 PM EDT Legal Sex Female 12:16 PM EDT Gender Identity Female 03/26/2023 6:42 PM EDT Sexual Orientation Straight 03/26/2023 6: 42 PM EDT documented as of this encounter Plan of Treatment Not on file documented as of this encounter Procedures Procedure Name Priority Date/Time Associated Diagnosis Comments US CHEST OUTSIDE (NO INTERPRETATION) Routine 03/23/2016 12:00 AM EDT documented in this encounter Results * US Chest Outside (No Interpretation) (03/23/2016 12:00 AM EDT) Narrative [facility] - 04/10/2016 9:34 AM EDT This study is for PACS storage only and not for interpretation. Procedure Note SYSTEMGENERATED, DOCUMENTATION - 04/10/2016 This study is for PACS storage only and not for interpretation. us Mercedez Handley MD IMG OUTSIDE IMAGING W/OUT INTERPRETATION Final Result [facility] documented in this encounter Visit Diagnoses Not on filedocumented in this encounter Care Teams Rocket Motor Tester Relationship Specialty Start Date End Date Celsa Henderson MD [facility] [place] [address] PCP - General Internal Medicine 02/22/16 documented as of this encounter Additional Source Comments The information contained in this document represents components of the legal health record. It is not the complete legal health record.[facility]
--- OUTSIDE RECORDS SUMMARY | 2025-07-22 10:47 | XMS_ITS | Clinical Summary ---
Author Organization [facility] Address [address] [employer] [facility] [address] [place] [address] Phone Care Team Providers Care Polysomnography Technician Name Role Phone Celsa Henderson MD Primary Care Provider Mercedez Handley MD Unavailable [phone] Mar Palm MD Unavailable Queenie Brandon DO Unavailable [phone] Allergies Active Allergy Reactions Criticality Noted Date [...] Will refer to our retinal specialists at [facility] for further evaluation, ? Need for laser therapy Encounters Date Type Department Care Team Description 07/13/2025 Refill Urology and Reconstructive Pelvic Surgery [address] [place] [address]; [address] [place] [address] Queenei Brandon, DO Medication Refill from Last 3 Months Family History Medical History Relation Comments Diabetes Father Gdcfl-Exxdq-Ournx syndrome Father Diabetes Maternal Aunt Glaucoma Maternal [...] this topic Medical Devices Implanted Type Area It Business Process Architect Device Identifier Shelf Expiration Date Model / Serial / Lot Mesh Mesh Urethra Kit Urethral Bulkamid - [id number] Implanted:Qty: 1 on 11/09/2023 by Queenie Brandon DO at [facility] N/A: Bladder [employer] 04/26/2026 [id number] / / [id number] Description:2mL administered Insurance KEN PPO CIGNA PPO CIGNA PPO CIGNA PPO CIGNA PPO CIGNA PPO CIGNA PPO Member Subscriber Plan / Payer (Ef fective 2022-Present) Name:Laura Sky Relation to Subscriber:Spouse Name:KENDALL SKY Date of :1977 (Home) Address: [address] [place] [address] Payer ID:[id number] (NA) Type:PPO Address: [address] [place] [phone] Member Subscriber Plan / Payer (Ef fective 2022-Present) Name:Laura Sky Relation to Subscriber:Spouse Name:KENDALL SKY Date of :1977 (Home) Address: [address] [place] [address] Payer ID:[id number] ([facility]) Type:PPO Address: [address] [place] [phone] CIGNA PPO Member Subscriber Plan / Payer (Ef fective 2022-Present) Name:Laura Sky Relation to Subscriber:Spouse Name:KENDALL SKY Date of :1977 (Home) Address: [address] [place] [address] Payer ID:[id number] (NA) Type:PPO Address: [address] [place] [phone] Advance Directives For more information, please contact: [phone] (9AM - 5PM [place]/[facility], Sunday-Sunday) Documents on File Type Date Recorded Patient Customer Acquisition Specialist Expl anation Healthcare Proxy 05/23/2024 5:45 PM Care Teams Polysomnography Technician Relationship Specialty Start Date End Date Celsa Henderson MD [facility] [place] [address] PCP - General Internal Medicine 02/22/16 Mercedez Handley MD [address] [place] [address] [email or web address] Pulmonary Disease 04/24/16 Mar Palm MD [address] [place] [address] [email or web address] Genetics 04/24/16 Queenie Brandon DO [address] [place] [address] [email or web address] U Obstetrics and Gynecology 03/28/23 Additional Source Comments The information contained in this document represents components of the legal health record. It is not the complete legal health record.[facility]
--- OUTSIDE RECORDS SUMMARY | 2025-07-22 10:47 | XMS_ITS | Encounter Summary ---
Author Organization [facility] Address [address] [place] [address] Phone Care Team Providers Care Psych Specialist Name Role Phone Celsa Henderson MD Primary Care Provider Mercedez Handley MD Unavailable [phone] Mar Palm MD Unavailable Queenie Brandon DO Unavailable [phone] Encounter Details Date Type Department Care Team (Late st Contact Info) Description 04/28/2016 Telephone [facility] Medical Genetics [address] [facility], 6th Floor, [address] [place] [address] Mar Palm MA [address] [place] [address] [email or web address] Social History Tobacco Use Types Packs/Day [...] on filedocumented in this encounter Care Teams Psych Specialist Relationship Specialty Start Date End Date Celsa Henderson MD [address] [place] [address] [place] [address] PCP - General Internal Medicine 02/22/16 Mercedez Handley MD [address] [facility] [address] [place] [address] [email or web address] Pulmonary Disease 04/24/16 Mar Palm MD [address] [facility] [address] [place] [address] [email or web address] Genetics 04/24/16 Queenie Brandon DO [address] [facility] [address] [place] [address] [email or web address] U Obstetrics and Gynecology 03/28/23 documented as of this encounter Additional Source Comments The information contained in this document represents components of the legal health record. It is not the complete legal health record.[facility]
--- OUTSIDE RECORDS SUMMARY | 2025-07-22 10:47 | XMS_ITS | Encounter Summary ---
Author Organization [facility] Address [address] [place] [address] Phone Care Team Providers Care Gambling Dealer Name Role Phone Celsa Henderson MD Primary Care Provider Mercedez Handley MD Unavailable [phone] Mar Palm MD Unavailable Queenie Brandon DO Unavailable [phone] Encounter Details Date Type Department Care Team (Late st Contact Info) Description 05/21/2024 Procedure Pass [facility] PERIOPERATIVE DEPT [address] [place] [id number] Social History Tobacco Use Types Packs/Day [...] on filedocumented in this encounter Care Teams Gambling Dealer Relationship Specialty Start Date End Date Celsa Henderson MD [address] [facility] [place] [address] PCP - General Internal Medicine 02/22/16 Mercedez Handley MD [address] [place] [address] [email or web address] Pulmonary Disease 04/24/16 Mar Palm MD [address] [place] [address] [place] [address] [email or web address] Genetics 04/24/16 Queenie Brandon DO [address] [place] [address] [email or web address] U Obstetrics and Gynecology 03/28/23 documented as of this encounter Additional Source Comments The information contained in this document represents components of the legal health record. It is not the complete legal health record.[facility]
--- OUTSIDE RECORDS SUMMARY | 2025-07-22 10:47 | XMS_ITS | Patient Health Record ---
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 Plan Of Treatment No Information Insurance Providers Payer Name Payer Address Payer Phone Subscriber Number Group Number Insured Name Patient Relationship to Insured Coverage Start Date Coverage End Date [employer] [address] [place], [place] [phone] [id number] Laura Person Self - patient is the insured Medical (General) History Medical History History ICD Code Anemia Anxiety Back,Hip,and Knee pain Cancer covid-19 Diverticulosis Headaches/Migraines Reflux ( GERD) Sciatica Warts Chicken pox Surgical History Surgery Date(Month/Year) leep procedure 08/2003 tubal 06/04/2012 hysterectomy 09/29/2013 [facility] sling 09/29/2013 sling reversal 11/30/2015 [facility] sling 02/17/2019
--- OUTSIDE RECORDS SUMMARY | 2025-07-22 10:47 | XMS_ITS | Clinical Summary ---
Author Organization [facility] Address [address] [place] [address] Phone Care Team Providers Care Press Tender Long Goods Name Role Phone Celsa Henderson MD Primary [...] year. Mammo Location: [facility], [address] [place] [address], [address], . -------- FINAL REPORT -------- Dictated By: Domitila Tolliver Dictated Date: 11/13/2024 15:41 ET Assigned Physician: Domitila Tolliver Reviewed and Electronically Signed By: Domitila Tolliver Signed Date: 11/13/2024 15:44 ET Workstation ID: [id number] Transcribed By: Self Edit Transcribed Date: 11/13/2024 [...] year. Mammo Location: [facility], [address] [place] [address], [address], . -------- FINAL REPORT -------- Dictated By: Domitila Tolliver Dictated Date: 11/13/2024 15:41 ET Assigned Physician: Domitila Tolliver Reviewed and Electronically Signed By: Domitila Tolliver Signed Date: 11/13/2024 15:44 ET Workstation ID: [id number] Transcribed By: Self Edit Transcribed Date: 11/13/2024 15:41 ET us Self Referral Sppl IMG BI PROCEDURES Final Resul t from Last 3 Months or Most Recently Relevant to Health Maintenance Insurance CIGNA Care Teams Press Tender Long Goods Relationship Specialty Start Date End Date Celsa Henderson MD [address] [facility] [place] [address] PCP - General Internal Medicine 11/11/24
--- OUTSIDE RECORDS SUMMARY | 2025-07-22 10:47 | XMS_ITS | Encounter Summary ---
Author Organization [facility] Address [address] [place] [address] Phone Care Team Providers Care Mold Yard Crane Operator Name Role Phone Celsa Henderson MD Primary Care Provider Mercedez Handley MD Unavailable [phone] Mar Palm MD Unavailable Queenie Brandon DO Unavailable Encounter Details Date Type Department Care Team (Late st Contact Info) Description 11/09/2023 Procedure Pass [facility] [address] [place] [id number] Social History Tobacco Use Types Packs/Day Years [...] on filedocumented in this encounter Care Teams Mold Yard Crane Operator Relationship Specialty Start Date End Date Celsa Henderson MD [facility] [place] [address] PCP - General Internal Medicine 02/22/16 Mercedez Handley MD [address] [facility] [address] [place] [address] [email or web address] [email or web address] Pulmonary Disease 04/24/16 Mar Palm MD [address] [facility] [address] [place] [address] [email or web address] Genetics 04/24/16 Queenie Brandon DO [address] [facility] [address] [place] [address] [email or web address] U Obstetrics and Gynecology 03/28/23 documented as of this encounter Additional Source Comments The information contained in this document represents components of the legal health record. It is not the complete legal health record.[facility]
[2025-07-22 15:14] LABS: Folate 10.1 ng/mL (> or = 4.0); Vitamin B12 750 pg/mL (200-900)
[2025-07-22 15:30] LABS: Cholesterol 217 mg/dL (<200); HDL Cholesterol 66 mg/dL (>40); Triglycerides 136 mg/dL (<150)
== END 2025-07-22 09:33 | disposition home or self-care (01) ==
LOC: HO.HMGCLDS 09:32
PROVIDERS: PCP Internal Medicine; Visit Provider Internal Medicine
DX: I10 Essential (primary) hypertension (principal); E55.9 Vitamin D deficiency, unspecified; E78.5 Hyperlipidemia, unspecified; R79.89 Other specified abnormal findings of blood chemistry; R73.01 Impaired fasting glucose
CPT/HCPCS: 36415; 80061; 82306; 82607; 82746; 82947; 83036; 84443